=== PATIENT | male | born 1990 | race African-American/Black ===

== ENCOUNTER 2016-09-03 17:52 | Inpatient (IN) ==
[2016-09-03] MEDS ORDERED: VANCOMYCIN INJ 1,000 MG in SODIUM CHLORIDE 0.9% 250 ML IV STA (18:11)
[2016-09-03] MEDS ORDERED: PIPERACILLIN/TAZOBACTAM 3,375 MG in SODIUM CHLORIDE 0.9% 100 ML IV STA (18:11)
[2016-09-03] MEDS ORDERED: SODIUM CHLORIDE 0.9% 2,000 ML IV STA (18:11)
[2016-09-03] MEDS ORDERED: methylPREDNISolone SOD SUC 125 MG/2 ML VIAL IV STA (18:11)
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
[2016-09-03 18:22] LABS: Basophils % 0.1 % (0.0-0.8); Eosinophils # 0.1 10*3/uL (0.0-0.87); Eosinophils % 0.4 % (0.00-10.9); Hematocrit 27.5 VOL% (42.0-52.0); Hemoglobin 9.2 GM/DL (14.0-18.0); Immature Granulocytes % 1.5 %; Immature Granulocytes Absolute 0.44 #; Lymphocytes # 2.1 10*3/uL (1.4-4.0); Lymphocytes % 7.4 % (21.2-54.2); Mean Corpuscular HGB Conc 33.5 GM/DL (32-36); Mean Corpuscular Hemoglobin 27 PG (27-34); Mean Corpuscular Volume 80.2 FL (87-102); Mean Platelet Volume 9.7 FL (9.6-12.0); Neutrophils % 83.6 % (38.7-73.9); Platelet Count 774 T/CUMM (130-400); Red Blood Count 3.43 MC/CUMM (3.8-5.5); White Blood Count 28.7 T/CUMM (4-12)
[2016-09-03 18:40] LABS: Alanine Aminotransferase 14 U/L (16-61); Albumin 2.3 G/DL (3.4-5.0); Alkaline Phosphatase 114 U/L (45-117); Aspartate Amino Transferase 26 U/L (0-37); Blood Urea Nitrogen 11 MG/DL (7-18); Calcium 8.4 MG/DL (8.5-10.1); Glucose 113 MG/DL (74-106); Osmolality,Calculated 272.8 MOS/KG (273-304); Potassium 4.3 MMOL/L (3.5-5.1); Sodium 137 MMOL/L (136-145); Total Protein 7.4 G/DL (6.4-8.3); Troponin I Only < 0.015 NG/ML (0.00-0.045)
--- NOTE | 2016-09-03 19:03 | XRay Report ---
XR chest 1V portable Indication: Shortness of breath. Chest one view: Comparison 05/07/2011. The heart size and mediastinal contour are normal. The lungs and pleural spaces are clear. Bones are unremarkable. Impression: Negative chest. PROCEDURE INTERPRETED AT [facility] DEPARTMENT OF RADIOLOGY Final Report Signed by: Tomy Jovel M.D.
[2016-09-03] MEDS ORDERED: methylPREDNISolone SOD SUC 125 MG/2 ML VIAL ONE (19:17)
[2016-09-03] MEDS ORDERED: VANCOMYCIN 1,000 MG VIAL ONE (19:17)
[2016-09-03] MEDS ORDERED: PIPERACILLIN/TAZOBACTAM 3,375 MG VIAL IV ONE (19:17)
[2016-09-03] MEDS ORDERED: SODIUM CHLORIDE 0.9% 100 ML IV ONE (19:18)
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
[2016-09-03 19:51] LABS: Eosinophils 1 % (0-10); Lymphocytes 6 % (20-55); Platelet Estimate Increased; Segmented Neutrophils 84 % (50-85); Total Cells Counted 100
[2016-09-03] MEDS ORDERED: ONDANSETRON 4 MG/2 ML VIAL IV PRN (19:53)
[2016-09-03] MEDS ORDERED: POLYETHYLENE GLYCOL POWDER 17 GM PACK PO PRN (20:03)
[2016-09-03] MEDS ORDERED: ACETAMINOPHEN 500 MG TABLET PO PRN (21:38)
[2016-09-03] MEDS: PREGABALIN 50 MG CAPSULE PO SCH (21:52)
[2016-09-03] MEDS: BACLOFEN 10 MG TABLET PO SCH (21:52)
[2016-09-03] MEDS: ALPRAZolam 0.5 MG TABLET PO PRN (21:52)
[2016-09-03] MEDS: ZALEPLON 5 MG CAPSULE PO SCH (21:52)
[2016-09-03] MEDS: SODIUM CHLORIDE 0.9% 1,000 ML IV SCH (22:12)
[2016-09-04] MEDS: VANCOMYCIN INJ 750 MG in SODIUM CHLORIDE 0.9% 250 ML IV SCH ×2 (03:59→11:44)
[2016-09-04] MEDS: SODIUM CHLORIDE 0.9% 1,000 ML IV SCH ×2 (03:59→20:54)
[2016-09-04 05:51] LABS: Red Blood Count 3.22 MC/CUMM (3.8-5.5); White Blood Count 30.2 T/CUMM (4-12)
[2016-09-04 05:52] LABS: Basophils # 0.1 10*3/uL (0.0-0.2); Basophils % 0.2 % (0.0-0.8); Hematocrit 25.1 VOL% (42.0-52.0); Hemoglobin 8.7 GM/DL (14.0-18.0); Immature Granulocytes % 1.2 %; Immature Granulocytes Absolute 0.37 #; Lymphocytes # 1.1 10*3/uL (1.4-4.0); Lymphocytes % 3.8 % (21.2-54.2); Mean Corpuscular HGB Conc 34.7 GM/DL (32-36); Mean Corpuscular Hemoglobin 27 PG (27-34); Monocytes # 0.6 10*3/uL (0.11-0.8); Monocytes % 1.8 % (1.7-12.7); NRBC # 0.03 10*3/uL; Neutrophils # 28.1 10*3/uL (1.4-7.4); Platelet Count 684 T/CUMM (130-400)
[2016-09-04 06:08] LABS: Calcium 8.1 MG/DL (8.5-10.1); Osmolality,Calculated 285.1 MOS/KG (273-304); Potassium 4.1 MMOL/L (3.5-5.1)
[2016-09-04 06:36] LABS: Band Neutrophils 6 % (0-10); Hypochromasia 1+; Lymphocytes 3 % (20-55); Microcytosis 1+; Platelet Estimate Increased; Segmented Neutrophils 87 % (50-85); Total Cells Counted 100
[2016-09-04] MEDS: PIPERACILLIN/TAZOBACTAM 3,375 MG in SODIUM CHLORIDE 0.9% 100 ML IV SCH ×4 (06:47→23:03)
[2016-09-04] MEDS ORDERED: INFLUENZA VIRUS VACCINE 0.5 ML SYRINGE IM ONE (09:00)
[2016-09-04] MEDS: PANTOPRAZOLE 40 MG TABLET PO SCH (10:39)
[2016-09-04] MEDS: PREGABALIN 50 MG CAPSULE PO SCH ×3 (10:39→20:53)
[2016-09-04] MEDS: CITALOPRAM 20 MG TABLET PO SCH (10:39)
[2016-09-04] MEDS: ALPRAZolam 0.5 MG TABLET PO PRN ×2 (10:40→20:58)
--- NOTE | 2016-09-04 10:49 | Hospitalist Progress Note ---
Assessment and Plan (1) Sepsis Status: Acute Current Visit: Yes (2) Leukocytosis Status: Acute Current Visit: Yes (3) sacral decubitus wound Status: Acute Current Visit: Yes (4) Infected wound Status: Acute Assessment and plan: Plan for our patient #1 admit the patient service #2 IV antibiotics vanc and Zosyn #3 surgery consult number for home meds appropriate 09/04/16 can continue with IV antibiotics and wound care for this patient. It seems like the abx have Agreed well with the patient and his vital signs are improved. He's no longer diaphoretic he's no longer tachycardic. Awaiting surgery's input as far as his sacral decubitus ulcer. Current Visit: Yes Hospitalist: Subjective Interval history: Patient reports feeling much better. His vital signs have improved. He's no longer tachycardic and diaphoretic Exam - Constitutional Vitals: Period Temp Pulse Resp BP Sys/Johnson Pulse Ox Last 24 Hr 97.4 F-98.2 F 90-112 16-20 90-125/48-72 98-100 General appearance: under weight - Head Head exam: Present: normal inspection - Eye Eye exam: Present: EOMI Pupils: Present: ELINA - ENT ENT exam: Present: normal exam - Neck Neck exam: Present: normal inspection - Respiratory Respiratory exam: Present: clear to auscultation bilaterally - Cardiovascular Cardiovascular exam: Present: tachycardia - GI/Abdominal GI/Abdominal exam: Present: normal bowel sounds - Extremities Exam Extremities exam: Present: normal inspection - Back Exam Back exam: Present: other (a midline 8 cm diameter decubitus with purulent odorous discharge.) - Neurological Exam Neurological exam: Present: alert - Psychiatric Psychiatric exam: Present: normal affect - Skin Skin exam: Present: other ( Right posterior thigh 3 cm decubiti 2,) Results - Labs CBC & BMP: 09/04/16 05:36 09/04/16 05:36
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
[2016-09-04] MEDS ORDERED: SKIN HEALING OINT (AQUAPHOR) 50 GM TUBE TOP PRN (13:00)
[2016-09-04] MEDS: COLLAGENASE OINT 30 GM TUBE TOP SCH (13:00)
[2016-09-04] MEDS: ENOXAPARIN 40 MG/0.4 ML SYRINGE SUBCUT SCH (20:53)
[2016-09-04] MEDS: BACLOFEN 10 MG TABLET PO SCH (20:53)
[2016-09-04] MEDS: ZALEPLON 5 MG CAPSULE PO SCH (20:53)
[2016-09-05] MEDS: VANCOMYCIN INJ 1,000 MG in SODIUM CHLORIDE 0.9% 250 ML IV SCH ×3 (01:31→17:40)
[2016-09-05] MEDS: SODIUM CHLORIDE 0.9% 1,000 ML IV SCH ×2 (03:18→11:24)
[2016-09-05] MEDS: PIPERACILLIN/TAZOBACTAM 3,375 MG in SODIUM CHLORIDE 0.9% 100 ML IV SCH ×3 (05:19→23:19)
[2016-09-05] MEDS: PREGABALIN 50 MG CAPSULE PO SCH ×3 (08:35→21:10)
[2016-09-05] MEDS: ALPRAZolam 0.5 MG TABLET PO PRN ×3 (08:35→21:21)
[2016-09-05] MEDS: CITALOPRAM 20 MG TABLET PO SCH (08:35)
[2016-09-05] MEDS: PANTOPRAZOLE 40 MG TABLET PO SCH (08:35)
[2016-09-05] MEDS: COLLAGENASE OINT 30 GM TUBE TOP SCH (08:36)
[2016-09-05] MEDS ORDERED: LORazepam 2 MG/1 ML VIAL ONE (09:44)
[2016-09-05] MEDS: LORazepam 2 MG/1 ML VIAL IV PRN (10:05)
--- NOTE | 2016-09-05 11:03 | Hospitalist Progress Note ---
Assessment and Plan (1) Sepsis Status: Acute Current Visit: Yes (2) sacral decubitus wound Status: Acute Current Visit: Yes (3) Acute UTI Status: Acute Current Visit: Yes (4) Medical non-compliance Status: Acute Current Visit: Yes (5) Quadriplegia following spinal cord injury Status: Acute Current Visit: Yes (6) Leukocytosis Status: Acute Assessment and plan: Plan: 09/05: Patient is now agreeable to obtaining CBC, BMP, UA and culture. I believe he discussion with the patient and family at bedside, and recommended that he stay for IV antibiotics until we have completed infectious workup. He continues to state that he wishes to leave today, if he does so this will be AGAINST MEDICAL ADVICE. Current Visit: Yes Hospitalist: Subjective Interval history: Patient is wishing to leave the hospital AMA. I had a lengthy discussion with him regarding and laid for antibiotics and infectious workup including labs and UA and culture. He is agreeable to this however he still wants to leave today. I recommended again repeatedly that he stay for IV antibiotics until her infectious workup is complete given his significantly elevated white count. He seems to have very poor insight into his illness. Exam - Constitutional Vitals: Period Temp Pulse Resp BP Sys/Johnson Pulse Ox Last 24 Hr 96.8 F-98.3 F 77-100 16-18 104-139/65-81 100-100 Exam: EXAM: CONSTITUTIONAL: non toxic, NAD HEENT: Bitemporal wasting, AT, OP benign, ELINA, EOMI CV: RRR no m/g/r RESP: clear B/L, no w/r/r GI: abd soft, NT, ND, +bowel sounds INTEGUMENTARY: Sacral decubitus ulcer present EXTREMITIES: Diffuse muscle atrophy NEURO: Consistent with known quadriplegia PSYCH: Awake and alert Results - Labs CBC & BMP: 09/04/16 05:36 09/04/16 05:36 Lab Results: I have reviewed the past 24 hour labs (initially refused a.m. labs , now agreeable and obtaining CBC, BMP and UA with culture)
[2016-09-05 11:15] LABS: Apearance,Urine CLOUDY (Clear); Bilirubin,Urine Negative (Negative); Blood, Urine Negative (Negative); Calcium Oxalate Crystals,Urine Occasional /HPF (Few); Glucose,Urine (UA) Negative (Negative); Ketones,Urine Negative (Negative); Mucus,Urine Occasional /LPF (Occasional); Nitrite,Urine Negative (Negative); Protein,Urine Negative; RBC,Urine 5 /HPF (0-4); Urine Color Amber (Yellow); Urine Specific Gravity 1.028 (1.001-1.035); WBC,Urine 211 /HPF (0-6)
--- NOTE | 2016-09-05 11:18 | General Surgery Progress Note ---
Assessment and Plan (1) sacral decubitus wound Status: Acute Assessment and plan: With the nurses felt we rolled the patient and I carefully looked at each of these areas of breakdown and I am not impressed that the decubiti look bad enough to result in a white count of 30,000. This appears somewhat chronic over the sacral area and I did not feel that this was necrotic. I will continue to follow this with you but at this time I do not see evidence of an abscess or necrotizing infection. 09/05: He does not appear ill and is afebrile. He had a markedly elevated white blood cell count yesterday. In looking at his chronic-appearing sacral ulcer I think that it is unlikely to be the source of his elevated white count and it does not really look actively infected. I can debride this wound but I am surprised if there is any direct septic focus related to this ulcer. Feeling the sacral wound will be another very difficult matter. This patient may require fecal diversion to have any hope of healing this wound which she is frequently contaminating on a daily basis his bowel movements. He had cultures that are positive from the wound which I would expect in a chronic wound that is being continually contaminated. If we do not find another source for his elevated white blood cell count then I would be happy to take him to the OR for exploration and debridement of these pressure sores. Current Visit: Yes Subjective Patient reports: Present: no new complaints, feels better, tolerating a regular diet. Absent: nausea, vomiting, shortness of breath, fever Exam - Constitutional Vitals: Period Temp Pulse Resp BP Sys/Johnson Pulse Ox Last 24 Hr 96.8 F-98.3 F 77-100 16-18 104-139/65-81 100-100 General appearance: no acute distress - Respiratory Respiratory exam: Absent: accessory muscle use - Back Exam Back exam: Present: other (I looked at his sacral ulcer again and it appears chronic with a fully granulated base and granulation tissue over the tip of the coccyx. I do not see any obvious section or necrosis) Results - Labs CBC & BMP: 09/04/16 05:36 09/04/16 05:36 Lab Results: I have reviewed the past 24 hour labs
[2016-09-05 11:52] LABS: Basophils % 0.1 % (0.0-0.8); Eosinophils # 0.1 10*3/uL (0.0-0.87); Eosinophils % 0.4 % (0.00-10.9); Hematocrit 23.2 VOL% (42.0-52.0); Hemoglobin 7.7 GM/DL (14.0-18.0); Immature Granulocytes % 1.1 %; Immature Granulocytes Absolute 0.24 #; Lymphocytes % 9.2 % (21.2-54.2); Mean Corpuscular HGB Conc 33.2 GM/DL (32-36); Mean Corpuscular Hemoglobin 27 PG (27-34); Mean Corpuscular Volume 79.7 FL (87-102); Mean Platelet Volume 9.7 FL (9.6-12.0); Monocytes # 1.7 10*3/uL (0.11-0.8); Neutrophils # 17.5 10*3/uL (1.4-7.4); Neutrophils % 81.2 % (38.7-73.9); Platelet Count 739 T/CUMM (130-400); Red Blood Count 2.91 MC/CUMM (3.8-5.5); Red Cell Distribution Width 14.2 % (9.3-17.3); White Blood Count 21.5 T/CUMM (4-12)
[2016-09-05 12:19] LABS: Hypochromasia 1+; Microcytosis 1+; Ovalocytes Slight; Platelet Estimate Increased
[2016-09-05] MEDS ORDERED: SODIUM CHLORIDE 0.9% 250 ML IV PRN (12:23)
[2016-09-05 12:25] LABS: Calcium 7.9 MG/DL (8.5-10.1); Osmolality,Calculated 287.6 MOS/KG (273-304); Potassium 3.8 MMOL/L (3.5-5.1)
[2016-09-05] MEDS: ZALEPLON 5 MG CAPSULE PO SCH (21:11)
[2016-09-05] MEDS: BACLOFEN 10 MG TABLET PO SCH (21:11)
[2016-09-05] MEDS: ENOXAPARIN 40 MG/0.4 ML SYRINGE SUBCUT SCH (21:11)
[2016-09-06] MEDS: VANCOMYCIN INJ 1,000 MG in SODIUM CHLORIDE 0.9% 250 ML IV SCH ×3 (03:30→16:38)
[2016-09-06 06:57] LABS: Basophils # 0.1 10*3/uL (0.0-0.2); Basophils % 0.2 % (0.0-0.8); Eosinophils % 0.1 % (0.00-10.9); Hematocrit 34.4 VOL% (42.0-52.0); Hemoglobin 11.8 GM/DL (14.0-18.0); Immature Granulocytes % 2.7 %; Immature Granulocytes Absolute 0.91 #; Lymphocytes # 2.4 10*3/uL (1.4-4.0); Lymphocytes % 7.1 % (21.2-54.2); Mean Corpuscular HGB Conc 34.3 GM/DL (32-36); Mean Corpuscular Hemoglobin 27 PG (27-34); Mean Platelet Volume 10.3 FL (9.6-12.0); Monocytes # 2.2 10*3/uL (0.11-0.8); Monocytes % 6.4 % (1.7-12.7); NRBC # 0.08 10*3/uL; Neutrophils # 28.6 10*3/uL (1.4-7.4); Neutrophils % 83.5 % (38.7-73.9); Platelet Count 439 T/CUMM (130-400); Red Cell Distribution Width 14.6 % (9.3-17.3); White Blood Count 34.2 T/CUMM (4-12)
[2016-09-06] MEDS: PIPERACILLIN/TAZOBACTAM 3,375 MG in SODIUM CHLORIDE 0.9% 100 ML IV SCH ×3 (07:00→22:01)
[2016-09-06 07:01] LABS: Calcium 8.2 MG/DL (8.5-10.1); Magnesium 1.9 MG/DL (1.8-2.4); Osmolality,Calculated 283.8 MOS/KG (273-304); Potassium 3.2 MMOL/L (3.5-5.1)
[2016-09-06 07:10] LABS: Band Neutrophils 1 % (0-10); Hypochromasia 1+; Lymphocytes 6 % (20-55); Microcytosis 1+; Platelet Estimate Adequate; Segmented Neutrophils 90 % (50-85); Total Cells Counted 100
[2016-09-06] MEDS: PANTOPRAZOLE 40 MG TABLET PO SCH (10:19)
[2016-09-06] MEDS: CITALOPRAM 20 MG TABLET PO SCH (10:19)
[2016-09-06] MEDS: SODIUM CHLORIDE 0.9% 1,000 ML IV SCH ×3 (10:19→16:39)
[2016-09-06] MEDS: PREGABALIN 50 MG CAPSULE PO SCH ×3 (10:19→21:59)
--- NOTE | 2016-09-06 10:48 | General Surgery Progress Note ---
Assessment and Plan (1) sacral decubitus wound Status: Acute Assessment and plan: With the nurses felt we rolled the patient and I carefully looked at each of these areas of breakdown and I am not impressed that the decubiti look bad enough to result in a white count of 30,000. This appears somewhat chronic over the sacral area and I did not feel that this was necrotic. I will continue to follow this with you but at this time I do not see evidence of an abscess or necrotizing infection. 09/05: He does not appear ill and is afebrile. He had a markedly elevated white blood cell count yesterday. In looking at his chronic-appearing sacral ulcer I think that it is unlikely to be the source of his elevated white count and it does not really look actively infected. I can debride this wound but I am surprised if there is any direct septic focus related to this ulcer. Feeling the sacral wound will be another very difficult matter. This patient may require fecal diversion to have any hope of healing this wound which she is frequently contaminating on a daily basis his bowel movements. He had cultures that are positive from the wound which I would expect in a chronic wound that is being continually contaminated. If we do not find another source for his elevated white blood cell count then I would be happy to take him to the OR for exploration and debridement of these pressure sores. 09/06: He continues to have high fevers and a markedly elevated white blood cell count. His sacral decubitus ulcer has only chronic appearance and no evidence of acute infection on exam. I could not guarantee that there is not an underlying deep problem however his urinalysis is coming back consistent with urinary tract infection and I think his fever and white cell count or most likely from his urine. Considering how high these are I have recommended that we get a CT scan of his abdomen and pelvis. The patient is refusing all treatment. I have recommended aggressive treatment of his sacral ulcer and also I think that he would probably benefit from fecal diversion. All of this was discussed in detail with he and his family. I think his family understands the serious nature of his infection however the patient is demanding that we bring him papers for him to be released to go home. I did explain to him that it is not uncommon for paraplegic patients to from infection such as this Current Visit: Yes Subjective Patient reports: Present: feels better, fever. Absent: nausea, vomiting, shortness of breath Exam - Constitutional Vitals: Period Temp Pulse Resp BP Sys/Johnson Pulse Ox Last 24 Hr 97.6 F-102.2 F 87-109 18-20 86-138/41-66 98-100 General appearance: no acute distress - Eye Eye exam: Absent: scleral icterus - Neck Neck exam: Present: trachea midline - Respiratory Respiratory exam: Absent: accessory muscle use - GI/Abdominal GI/Abdominal exam: Present: soft. Absent: distended Results - Labs CBC & BMP: 09/06/16 06:37 09/06/16 06:37 Lab Results: I have reviewed the past 24 hour labs
--- NOTE | 2016-09-06 11:44 | Hospitalist Progress Note ---
Assessment and Plan (1) Sepsis Status: Acute Current Visit: Yes (2) sacral decubitus wound Status: Acute Current Visit: Yes (3) Acute UTI Status: Acute Current Visit: Yes (4) Medical non-compliance Status: Acute Current Visit: Yes (5) Quadriplegia following spinal cord injury Status: Acute Current Visit: Yes (6) Leukocytosis Status: Acute Assessment and plan: Plan: 09/05: Patient is now agreeable to obtaining CBC, BMP, UA and culture. I believe he discussion with the patient and family at bedside, and recommended that he stay for IV antibiotics until we have completed infectious workup. He continues to state that he wishes to leave today, if he does so this will be AGAINST MEDICAL ADVICE. 09/06: Described broad-spectrum antibiotics the patient continues to have high fever, high white count and is now hypotensive and diaphoretic. My lengthy discussion with him has been to no avail thus far, in that he still wishes to leave AMA despite knowing that he has a high chance of from doing so. He is refusing all treatment recommendations at this point, refusing further lab draws, and imaging. He is unfortunately being uncooperative with profanity laced speech towards the nursing staff. I will attempt to discuss how ill he is if his ride does arrive. Current Visit: Yes Hospitalist: Subjective Interval history: Mr. Landon continues to spike fevers and is now hypotensive and diaphoretic. I had a lengthy discussion with him encouraging to comply with blood cultures antibiotics, obtaining the CT scan as Dr. Zhou recommended, and letting us continue are infectious workup and treatment. He is alert and oriented and has given us a profanity laced explanation of why he wants to go home. He understands that he is leaving AMA if he does so. He states he has a ride home , I would like to explain to whomever plans on taking him home how ill this patient is that he will likely . Despite telling the patient that he will likely if he leaves AMA, he states that he does not care, and he just wants to go home, "if it's my time then it's my time." Current blood pressure is 85/ 50 Exam - Constitutional Vitals: Period Temp Pulse Resp BP Sys/Johnson Pulse Ox Last 24 Hr 97.4 F-102.2 F 87-109 18-20 86-138/41-66 94-100 Exam: EXAM: CONSTITUTIONAL: Chronically ill-appearing, NAD, diaphoretic HEENT: Bitemporal wasting, AT, OP benign, ELINA, EOMI CV: RRR no m/g/r RESP: clear B/L, no w/r/r GI: abd soft, NT, ND, +bowel sounds INTEGUMENTARY: Sacral decubitus ulcer present EXTREMITIES: Diffuse muscle atrophy NEURO: Consistent with known quadriplegia PSYCH: Awake and alert, oriented 3, uncooperative with exam Results - Labs CBC & BMP: 09/06/16 06:37 09/06/16 06:37 Lab Results: I have reviewed the past 24 hour labs - Diagnostic Findings Procedure: CT Abdomen and Pelvis: pending
[2016-09-06] MEDS: COLLAGENASE OINT 30 GM TUBE TOP SCH (12:55)
[2016-09-06] MEDS: ENOXAPARIN 40 MG/0.4 ML SYRINGE SUBCUT SCH (22:00)
[2016-09-06] MEDS: ZALEPLON 5 MG CAPSULE PO SCH (22:00)
[2016-09-06] MEDS: BACLOFEN 10 MG TABLET PO SCH (22:00)
[2016-09-06] MEDS: ALPRAZolam 0.5 MG TABLET PO PRN (22:07)
[2016-09-07] MEDS: VANCOMYCIN INJ 1,000 MG in SODIUM CHLORIDE 0.9% 250 ML IV SCH ×2 (01:53→16:22)
[2016-09-07] MEDS: LORazepam 2 MG/1 ML VIAL IV PRN (01:53)
[2016-09-07 05:22] LABS: HIV Antigen/Antibody Result Nonreactive (Nonreactive)
[2016-09-07] MEDS: PIPERACILLIN/TAZOBACTAM 3,375 MG in SODIUM CHLORIDE 0.9% 100 ML IV SCH (07:02)
[2016-09-07] MEDS: SODIUM CHLORIDE 0.9% 1,000 ML IV SCH ×3 (07:03→23:35)
[2016-09-07] MEDS: DOCUSATE SODIUM 100 MG CAPSULE PO PRN (09:33)
[2016-09-07] MEDS: ALPRAZolam 0.5 MG TABLET PO PRN ×2 (09:33→21:22)
[2016-09-07] MEDS: PREGABALIN 50 MG CAPSULE PO SCH ×4 (09:34→21:22)
[2016-09-07] MEDS: PANTOPRAZOLE 40 MG TABLET PO SCH (09:34)
[2016-09-07] MEDS: CITALOPRAM 20 MG TABLET PO SCH (10:32)
--- NOTE | 2016-09-07 11:10 | CT Report ---
History: Sacral decubitus ulcer Date: 09/07/2016 Study: CT abdomen and pelvis with IV contrast Comparison exam: May 07, 2011 CT abdomen and pelvis Technique: Spiral CT sections were obtained from the lung bases to the pubic symphysis following 100 mL Omnipaque 350 IV. Total DLP measures 443.9 mGy*cm. CT abdomen: There is some mild dependent atelectasis in the partially visualized lung bases. There is no evidence of pneumoperitoneum. The liver, bile ducts, fluid-filled gallbladder, spleen, pancreas, and adrenal glands are unremarkable. The kidneys are normal aside from a 13 mm water density simple cyst at the upper pole of the right kidney. There is bilateral renal excretion without hydronephrosis. There is no aortic aneurysm. There is mild free fluid in the right paracolic gutter. There is no gross lymphadenopathy by short axis diameter criteria. CT pelvis: There is a septated fluid collection with rim enhancement compatible with a large soft tissue abscess associated with the right gluteus richard and medius muscle, measuring up to 16 x 10 x 6 cm maximum dimensions. There is also extension of this fluid collection into the partially visualized thigh and adductor muscles as well. There is soft tissue ulceration in the dorsal pelvis region inferior to the level of the coccyx. There is no soft tissue mass of the pelvis. There are some sclerotic changes of the bony framework of the hips. Does the patient have a history of renal disease? Impression: Large intramuscular abscess lateral to the right hip, measuring up to 16 cm maximum diameter. Soft tissue ulceration at the dorsal midline pelvis inferior to the coccyx. Mild free fluid in the right paracolic gutter PROCEDURE INTERPRETED AT [facility] DEPARTMENT OF RADIOLOGY Final Report Signed by: Dr. Michelle Gay
--- NOTE | 2016-09-07 11:41 | Hospitalist Progress Note ---
Assessment and Plan (1) Sepsis Status: Acute Current Visit: Yes (2) sacral decubitus wound Status: Acute Current Visit: Yes (3) Muscle abscess Status: Acute Current Visit: Yes (4) Acute UTI Status: Acute Current Visit: Yes (5) Medical non-compliance Status: Acute Current Visit: Yes (6) Quadriplegia following spinal cord injury Status: Acute Current Visit: Yes (7) Leukocytosis Status: Acute Assessment and plan: Plan: 09/05: Patient is now agreeable to obtaining CBC, BMP, UA and culture. I believe he discussion with the patient and family at bedside, and recommended that he stay for IV antibiotics until we have completed infectious workup. He continues to state that he wishes to leave today, if he does so this will be AGAINST MEDICAL ADVICE. 09/06: Described broad-spectrum antibiotics the patient continues to have high fever, high white count and is now hypotensive and diaphoretic. My lengthy discussion with him has been to no avail thus far, in that he still wishes to leave AMA despite knowing that he has a high chance of from doing so. He is refusing all treatment recommendations at this point, refusing further lab draws, and imaging. He is unfortunately being uncooperative with profanity laced speech towards the nursing staff. I will attempt to discuss how ill he is if his ride does arrive. 09/07: Patient is now much more cooperative. CT scan shows an intramuscular abscess which is probably the source of his ongoing fever and white count. He is now on is to draw labs again and "take care of the abscess." Past along with the surgical team to decide how best to approach the abscess. Otherwise continue antibiotics for now. We'll repeat blood work in the morning. Current Visit: Yes Hospitalist: Subjective Interval history: Mr. Landon is still having fever. His mood has changed dramatically in that he is much more cooperative. A CT scan of the abdomen and pelvis showed a large intramuscular abscess about the right hip. He states he is willing to "let us get rid of the abscess." He states he is also amenable to letting us draw labs again. We'll pass this and follow along to the surgical team to decide how best to approach the abscess. Exam - Constitutional Vitals: Period Temp Pulse Resp BP Sys/Johnson Pulse Ox Last 24 Hr 97.7 F-100.7 F 69-108 18-22 74-118/36-67 94-100 Exam: EXAM: CONSTITUTIONAL: Chronically ill-appearing, NAD HEENT: Bitemporal wasting, AT, OP benign, ELINA, EOMI CV: RRR no m/g/r RESP: clear B/L, no w/r/r GI: abd soft, NT, ND, +bowel sounds INTEGUMENTARY: Sacral decubitus ulcer present EXTREMITIES: Indurated area along the musculature about the right hip with mild erythema NEURO: Consistent with known quadriplegia PSYCH: Awake and alert, oriented 3, cooperative today Results - Labs CBC & BMP: 09/06/16 06:37 09/06/16 06:37 Lab Results: I have reviewed the past 24 hour labs - Diagnostic Findings Procedure: CT Abdomen and Pelvis: image reviewed by me, report reviewed by me
[2016-09-07] MEDS: COLLAGENASE OINT 30 GM TUBE TOP SCH (13:40)
[2016-09-07] MEDS: ERTAPENEM 1,000 MG in SODIUM CHLORIDE 0.9% 100 ML IV SCH (13:45)
--- NOTE | 2016-09-07 15:53 | Event Note ---
The patient feels better and is had low-grade temperature. His CT scan shows a large fluid collection in his right hip. I have discussed evacuation of this in the operating room. The procedure and risk of been explained and he wishes to proceed.
[2016-09-07] MEDS ORDERED: BUPIVACAINE MPF 0.25% /EPI 30 ML VIAL ONE (16:18)
[2016-09-07] MEDS ORDERED: LIDOCAINE 1%/EPI INJ 20 ML VIAL ONE (16:19)
--- NOTE | 2016-09-07 17:18 | Operative Note ---
Date of procedure: 09/07/16 Pre-op diagnosis: large complex intramuscular abscess right hip and thigh Post-op diagnosis: same Procedure: Incision and drainage of large intramuscular abscess right hip and thigh Findings and technique: After informed consent was obtained the patient was brought the operating room and placed in a lateral position and his right hip buttocks and sacral area prepped and draped in usual sterile fashion inspection of the sacral ulcer revealed all viable appearing tissue with no evidence of infection in this location. There is an area of fluctuance over the right greater trochanter and a 3 cm incision was made in the suction cannula inserted and about 500 mL of purulent material was evacuated and cultured. The cavity was digitally explored to break up any loculations and tract down into the lateral 5 and along the greater trochanter and along the femur this also tracked anteriorly beneath the fascia as well and all loculations were broken up in this area was copiously irrigated and a 10 mm SUNITHA drain placed in the space and brought through separate stab incision distally incision was enclosed interrupted 2-0 nylon suture and the drain sutured to the skin the cavity was about 15 cm in size Anesthesia: MAC Surgeon / Physician: Narciso Zhou III. Estimated blood loss: minimal Specimens: other (cultures) Condition: stable Disposition: PACU Results - Labs CBC & BMP: 09/06/16 06:37 09/06/16 06:37 Discharge Plan - Discharge Medications No Action Citalopram [CeleXA] 20 mg PO DAILY Amoxicillin/Potassium Clav [Amox Tr-K Clv 875-125 mg Tab] 1 each PO BID Polyethylene Glycol Powder [Miralax] 17 gm PO DAILY PRN PRN Reason: Constipation Ampicillin Cap 500 mg PO QID Pregabalin [Lyrica] 50 mg PO TID Zolpidem Tartrate [Zolpidem Tartrate] 10 mg PO BEDTIME Baclofen [Baclofen] 10 mg PO BEDTIME Docusate Sodium 100 mg PO DAILY PRN PRN Reason: stool softener ALPRAZolam [Alprazolam] 2 mg PO BID PRN PRN Reason: Anxiety - Follow Up or Referral - Forms/Instructions
[2016-09-07] MEDS ORDERED: PROPOFOL 200 MG/20 ML VIAL IV ONE (17:30)
[2016-09-07] MEDS ORDERED: MIDAZOLAM 2 MG/2 ML VIAL ONE (17:31)
[2016-09-07] MEDS ORDERED: fentaNYL 100 MCG/2 ML VIAL ONE (17:31)
[2016-09-07] MEDS: BACLOFEN 10 MG TABLET PO SCH (21:22)
[2016-09-07] MEDS: ZALEPLON 5 MG CAPSULE PO SCH (21:22)
[2016-09-07] MEDS: ENOXAPARIN 40 MG/0.4 ML SYRINGE SUBCUT SCH (21:25)
[2016-09-08] MEDS: LORazepam 2 MG/1 ML VIAL IV PRN ×2 (01:56→22:32)
[2016-09-08 06:54] LABS: Basophils % 0.2 % (0.0-0.8); Eosinophils # 0.4 10*3/uL (0.0-0.87); Hematocrit 31.3 VOL% (42.0-52.0); Hemoglobin 10.2 GM/DL (14.0-18.0); Immature Granulocytes Absolute 0.17 #; Lymphocytes # 3.8 10*3/uL (1.4-4.0); Lymphocytes % 21.2 % (21.2-54.2); Mean Corpuscular HGB Conc 32.6 GM/DL (32-36); Mean Corpuscular Hemoglobin 27 PG (27-34); Mean Corpuscular Volume 81.9 FL (87-102); Mean Platelet Volume 9.9 FL (9.6-12.0); Monocytes # 1.3 10*3/uL (0.11-0.8); Monocytes % 7.2 % (1.7-12.7); Neutrophils # 12.1 10*3/uL (1.4-7.4); Neutrophils % 68.4 % (38.7-73.9); Platelet Count 570 T/CUMM (130-400); Red Blood Count 3.82 MC/CUMM (3.8-5.5); Red Cell Distribution Width 15.1 % (9.3-17.3); White Blood Count 17.7 T/CUMM (4-12)
[2016-09-08 07:04] LABS: INR 1.1
[2016-09-08 07:14] LABS: Calcium 7.9 MG/DL (8.5-10.1); Magnesium 2.2 MG/DL (1.8-2.4); Osmolality,Calculated 287.4 MOS/KG (273-304); Potassium 3.6 MMOL/L (3.5-5.1)
[2016-09-08] MEDS: ALPRAZolam 0.5 MG TABLET PO PRN ×2 (09:28→22:20)
[2016-09-08] MEDS: DOCUSATE SODIUM 100 MG CAPSULE PO PRN (09:29)
[2016-09-08] MEDS: PANTOPRAZOLE 40 MG TABLET PO SCH (09:29)
[2016-09-08] MEDS: CITALOPRAM 20 MG TABLET PO SCH (09:29)
[2016-09-08] MEDS: PREGABALIN 50 MG CAPSULE PO SCH ×3 (09:29→22:19)
[2016-09-08] MEDS: SODIUM CHLORIDE 0.9% 1,000 ML IV SCH ×3 (09:31→22:18)
[2016-09-08] MEDS: VANCOMYCIN INJ 1,000 MG in SODIUM CHLORIDE 0.9% 250 ML IV SCH ×3 (09:31→23:56)
--- NOTE | 2016-09-08 11:02 | Hospitalist Progress Note ---
Assessment and Plan - Time spent with patient Time spent with patient: Less than 30 minutes (due to assessment, plan and documentation) (1) Sepsis Status: Acute Assessment and plan: on zosyn Current Visit: Yes (2) Acute UTI Status: Acute Assessment and plan: on zosyn Current Visit: Yes (3) Infected wound Status: Acute Current Visit: Yes (4) Leukocytosis Status: Acute Current Visit: Yes (5) Medical non-compliance Status: Acute Current Visit: Yes (6) Muscle abscess Status: Acute Assessment and plan: s/p i/d with Dr. Winnie FENTON Current Visit: Yes (7) Quadriplegia following spinal cord injury Status: Acute Current Visit: Yes (8) sacral decubitus wound Status: Acute Current Visit: Yes Hospitalist: Subjective Interval history: Mr. Landon was seen this morning lying in bed. He is resting comfortably and breathing easy. He does not speak to me throughout exam. He was admitted with sepsis, sacral wound decubitus, muscle abscess, UTI, quadriplegia. He was taken to the OR on 09/07/[address] Winnie FENTON for incision and drainage of large intramuscular abscess to the right hip and thigh. He has a SUNITHA in place and has some bright red blood in his drain. We will continue to follow along with Surgery and monitor his progress. Labs in AM. Exam - Constitutional Vitals: Period Temp Pulse Resp BP Sys/Johnson Pulse Ox Last 24 Hr 97.5 F-99.7 F 71-105 16-20 77-138/40-91 96-100 General appearance: no acute distress, under weight - Head Head exam: Present: normal inspection, normocephalic - Eye Eye exam: Present: EOMI. Absent: scleral icterus Pupils: Present: ELINA, normal accommodation - ENT ENT exam: Present: normal exam, normal oropharynx - Neck Neck exam: Present: normal inspection. Absent: lymphadenopathy - Respiratory Respiratory exam: Present: clear to auscultation bilaterally. Absent: accessory muscle use - Cardiovascular Cardiovascular exam: Present: regular rate and rhythm - GI/Abdominal GI/Abdominal exam: Present: normal bowel sounds, soft. Absent: tenderness - Extremities Exam Extremities exam: Present: normal inspection, other (boots to bilat lower extremity for wound prevention.) - Back Exam Back exam: Present: normal inspection. Absent: muscle spasm - Neurological Exam Neurological exam: Present: other (will not speak) - Psychiatric Psychiatric exam: Present: flat affect - Skin Skin exam: Present: other (s/p i/d to right thigh/hip abscess.) Results - Labs CBC & BMP: 09/08/16 06:26 09/08/16 06:26 Lab Results: I have reviewed the past 24 hour labs
--- NOTE | 2016-09-08 11:15 | Event Note ---
He feels much better. He states that he can feel a big difference overall at how he feels and does not have pain. He is now afebrile. His white blood cell count is still elevated. I would anticipate us needing to keep the drain in this large space for a couple of weeks and also we need to continue IV antibiotics. I did culture the pus and we're awaiting culture results.
--- NOTE | 2016-09-08 13:38 | Anesthesia ---
Anesthesia Post OP - Post Ansesthetic Evaluation Patient seen in post op: Yes Resp: within normal limits CV: within normal limits Mental: within normal limits Temp: within normal limits [id number]: within normal limits Nausea and Vomiting: within normal limits Pain: within normal limits
[2016-09-08] MEDS: ERTAPENEM 1,000 MG in SODIUM CHLORIDE 0.9% 100 ML IV SCH (14:33)
[2016-09-08] MEDS: COLLAGENASE OINT 30 GM TUBE TOP SCH (16:44)
[2016-09-08] MEDS: ZALEPLON 5 MG CAPSULE PO SCH (22:19)
[2016-09-08] MEDS: ENOXAPARIN 40 MG/0.4 ML SYRINGE SUBCUT SCH (22:19)
[2016-09-08] MEDS: BACLOFEN 10 MG TABLET PO SCH (22:20)
[2016-09-09 06:51] LABS: Basophils % 0.4 % (0.0-0.8); Eosinophils # 0.4 10*3/uL (0.0-0.87); Eosinophils % 4.8 % (0.00-10.9); Hematocrit 29.1 VOL% (42.0-52.0); Hemoglobin 9.3 GM/DL (14.0-18.0); Immature Granulocytes % 1.1 %; Immature Granulocytes Absolute 0.09 #; Lymphocytes # 2.5 10*3/uL (1.4-4.0); Lymphocytes % 30.9 % (21.2-54.2); Mean Corpuscular Hemoglobin 27 PG (27-34); Mean Corpuscular Volume 83.9 FL (87-102); Mean Platelet Volume 9.6 FL (9.6-12.0); Monocytes # 0.6 10*3/uL (0.11-0.8); Monocytes % 7.2 % (1.7-12.7); Neutrophils # 4.4 10*3/uL (1.4-7.4); Neutrophils % 55.6 % (38.7-73.9); Platelet Count 570 T/CUMM (130-400); Red Blood Count 3.47 MC/CUMM (3.8-5.5); White Blood Count 7.9 T/CUMM (4-12)
[2016-09-09 07:19] LABS: Calcium 7.8 MG/DL (8.5-10.1); Magnesium 2.1 MG/DL (1.8-2.4); Osmolality,Calculated 287.4 MOS/KG (273-304); Potassium 3.5 MMOL/L (3.5-5.1)
[2016-09-09 07:32] LABS: Alanine Aminotransferase 10 U/L (16-61); Albumin 1.5 G/DL (3.4-5.0); Alkaline Phosphatase 61 U/L (45-117); Aspartate Amino Transferase 7 U/L (0-37); Bilirubin,Total < 0.39 MG/DL (0.2-1.0); Blood Urea Nitrogen 5 MG/DL (7-18); Calcium 7.5 MG/DL (8.5-10.1); Glucose 84 MG/DL (74-106); Osmolality,Calculated 289.3 MOS/KG (273-304); Potassium 3.6 MMOL/L (3.5-5.1); Sodium 148 MMOL/L (136-145); Total Protein 5.1 G/DL (6.4-8.3)
[2016-09-09] MEDS: SODIUM CHLORIDE 0.9% 1,000 ML IV SCH ×2 (07:50→12:19)
[2016-09-09] MEDS: VANCOMYCIN INJ 1,000 MG in SODIUM CHLORIDE 0.9% 250 ML IV SCH ×3 (07:50→23:33)
[2016-09-09] MEDS: PANTOPRAZOLE 40 MG TABLET PO SCH (10:14)
[2016-09-09] MEDS: CITALOPRAM 20 MG TABLET PO SCH (10:14)
[2016-09-09] MEDS: PREGABALIN 50 MG CAPSULE PO SCH ×3 (10:14→20:18)
[2016-09-09] MEDS: COLLAGENASE OINT 30 GM TUBE TOP SCH (10:28)
--- NOTE | 2016-09-09 11:30 | Hospitalist Progress Note ---
Assessment and Plan - Time spent with patient Time spent with patient: Less than 30 minutes (due to assessment, plan and documentation.) (1) Sepsis Status: Acute Assessment and plan: on zosyn Current Visit: Yes (2) Acute UTI Status: Acute Assessment and plan: on zosyn Current Visit: Yes (3) Infected wound Status: Acute Current Visit: Yes (4) Leukocytosis Status: Acute Current Visit: Yes (5) Medical non-compliance Status: Acute Current Visit: Yes (6) Muscle abscess Status: Acute Assessment and plan: s/p i/d with Dr. Winnie FENTON Current Visit: Yes (7) Quadriplegia following spinal cord injury Status: Acute Current Visit: Yes (8) sacral decubitus wound Status: Acute Current Visit: Yes Hospitalist: Subjective Interval history: Mr. Landon has was seen today lying in bed resting. His brother is at bedside. He seems to be in good spirits today. He states that he is feeling much better and is ready to go home. He is anxious to have his SUNITHA pulled. Denies any chest or abdominal pain. BP has been well controlled. We will continue on current plan of care at this time and follow along with Dr. Winnie FENTON. Exam - Constitutional Vitals: Period Temp Pulse Resp BP Sys/Johnson Pulse Ox Last 24 Hr 96.3 F-97.8 F 78-88 16-20 103-127/52-73 99-100 General appearance: no acute distress, cachectic - Head Head exam: Present: normal inspection, normocephalic - Eye Eye exam: Present: EOMI. Absent: scleral icterus Pupils: Present: ELINA, normal accommodation - ENT ENT exam: Present: normal exam, normal oropharynx - Neck Neck exam: Present: normal inspection. Absent: lymphadenopathy - Respiratory Respiratory exam: Present: clear to auscultation bilaterally. Absent: accessory muscle use - Cardiovascular Cardiovascular exam: Present: regular rate and rhythm - GI/Abdominal GI/Abdominal exam: Present: normal bowel sounds, soft. Absent: tenderness - Extremities Exam Extremities exam: Present: normal inspection. Absent: edema - Back Exam Back exam: Present: normal inspection. Absent: muscle spasm - Neurological Exam Neurological exam: Present: alert, oriented X3 - Psychiatric Psychiatric exam: Present: normal affect, normal mood - Skin Skin exam: Present: normal color, warm, dry, intact Results - Labs CBC & BMP: 09/09/16 06:21 09/09/16 06:21 Lab Results: I have reviewed the past 24 hour labs
[2016-09-09] MEDS: ERTAPENEM 1,000 MG in SODIUM CHLORIDE 0.9% 100 ML IV SCH (12:18)
--- NOTE | 2016-09-09 12:58 | Event Note ---
He feels much better. He is not having fever. His surgical sites are okay. We will continue with the drain and IV and up biotics for now. Cultures are pending.
[2016-09-09] MEDS: BACLOFEN 10 MG TABLET PO SCH (20:18)
[2016-09-09] MEDS: ENOXAPARIN 40 MG/0.4 ML SYRINGE SUBCUT SCH (20:19)
[2016-09-09] MEDS: ZALEPLON 5 MG CAPSULE PO SCH (20:19)
[2016-09-09] MEDS: LORazepam 2 MG/1 ML VIAL IV PRN (23:39)
[2016-09-10] MEDS: SODIUM CHLORIDE 0.9% 1,000 ML IV SCH (09:05)
[2016-09-10] MEDS: CITALOPRAM 20 MG TABLET PO SCH (09:06)
[2016-09-10] MEDS: PREGABALIN 50 MG CAPSULE PO SCH ×3 (09:06→20:19)
[2016-09-10] MEDS: PANTOPRAZOLE 40 MG TABLET PO SCH (09:06)
[2016-09-10] MEDS: VANCOMYCIN INJ 1,000 MG in SODIUM CHLORIDE 0.9% 250 ML IV SCH ×2 (09:06→15:50)
[2016-09-10] MEDS: COLLAGENASE OINT 30 GM TUBE TOP SCH (09:17)
--- NOTE | 2016-09-10 10:26 | Hospitalist Progress Note ---
<Jenni Ponce - Last Filed: 09/10/16 10:23> Assessment and Plan - Time spent with patient Time spent with patient: Less than 30 minutes (1) Sepsis Status: Acute Assessment and plan: on zosyn Current Visit: Yes (2) Acute UTI Status: Acute Assessment and plan: on zosyn Current Visit: Yes (3) Infected wound Status: Acute Current Visit: Yes (4) Leukocytosis Status: Acute Current Visit: Yes (5) Medical non-compliance Status: Acute Current Visit: Yes (6) Muscle abscess Status: Acute Assessment and plan: s/p i/d with Dr. Winnie FENTON Current Visit: Yes (7) Quadriplegia following spinal cord injury Status: Acute Current Visit: Yes (8) sacral decubitus wound Status: Acute Current Visit: Yes Hospitalist: Subjective Interval history: Mr. Landon was seen on rounds today lying in bed. He states that he is feeling well. He denies any pain, shortness of breath or abdominal pain. He is anxious to go home, but we will be here a couple more days for more abx and waiting on his cx's to return. Labs in AM. Exam - Constitutional Vitals: Period Temp Pulse Resp BP Sys/Johnson Pulse Ox Last 24 Hr 96.4 F-98.2 F 73-95 16-18 117-138/65-81 98-100 General appearance: normal weight, no acute distress - Head Head exam: Present: normal inspection, normocephalic - Eye Eye exam: Present: EOMI. Absent: scleral icterus Pupils: Present: ELINA, normal accommodation - ENT ENT exam: Present: normal exam, normal oropharynx - Neck Neck exam: Present: normal inspection. Absent: lymphadenopathy - Respiratory Respiratory exam: Present: clear to auscultation bilaterally. Absent: accessory muscle use - Cardiovascular Cardiovascular exam: Present: regular rate and rhythm - GI/Abdominal GI/Abdominal exam: Present: normal bowel sounds, soft. Absent: tenderness - Extremities Exam Extremities exam: Present: normal inspection. Absent: edema - Back Exam Back exam: Present: normal inspection. Absent: muscle spasm - Neurological Exam Neurological exam: Present: alert, oriented X3 - Psychiatric Psychiatric exam: Present: normal affect, normal mood - Skin Skin exam: Present: normal color, warm, dry, intact Results - Labs CBC & BMP: 09/09/16 06:21 09/09/16 06:21 Lab Results: I have reviewed the past 24 hour labs <Adrien Williamson - Last Filed: 09/10/16 11:48> Exam - Constitutional Vitals: Period Temp Pulse Resp BP Sys/Johnson Pulse Ox Last 24 Hr 96.4 F-98.2 F 73-95 16-18 117-138/65-81 98-100 Results - Labs CBC & BMP: 09/09/16 06:21 09/09/16 06:21
[2016-09-10] MEDS: ERTAPENEM 1,000 MG in SODIUM CHLORIDE 0.9% 100 ML IV SCH (12:23)
[2016-09-10] MEDS: ZALEPLON 5 MG CAPSULE PO SCH (20:19)
[2016-09-10] MEDS: ENOXAPARIN 40 MG/0.4 ML SYRINGE SUBCUT SCH (20:19)
[2016-09-10] MEDS: BACLOFEN 10 MG TABLET PO SCH (20:19)
[2016-09-11] MEDS: VANCOMYCIN INJ 1,000 MG in SODIUM CHLORIDE 0.9% 250 ML IV SCH ×3 (00:28→17:47)
[2016-09-11 06:00] LABS: Basophils % 0.3 % (0.0-0.8); Eosinophils # 0.2 10*3/uL (0.0-0.87); Eosinophils % 2.1 % (0.00-10.9); Hematocrit 33.3 VOL% (42.0-52.0); Hemoglobin 10.6 GM/DL (14.0-18.0); Immature Granulocytes % 0.7 %; Immature Granulocytes Absolute 0.08 #; Lymphocytes # 2.7 10*3/uL (1.4-4.0); Lymphocytes % 24.5 % (21.2-54.2); Mean Corpuscular HGB Conc 31.8 GM/DL (32-36); Mean Corpuscular Hemoglobin 27 PG (27-34); Mean Corpuscular Volume 83.7 FL (87-102); Mean Platelet Volume 9.2 FL (9.6-12.0); Monocytes # 0.9 10*3/uL (0.11-0.8); Monocytes % 8.1 % (1.7-12.7); Neutrophils % 64.3 % (38.7-73.9); Platelet Count 612 T/CUMM (130-400); Red Blood Count 3.98 MC/CUMM (3.8-5.5); Red Cell Distribution Width 14.7 % (9.3-17.3); White Blood Count 10.9 T/CUMM (4-12)
[2016-09-11] MEDS: LORazepam 2 MG/1 ML VIAL IV PRN ×3 (06:15→23:08)
[2016-09-11 06:55] LABS: Albumin 1.8 G/DL (3.4-5.0); Bilirubin,Total 0.4 MG/DL (0.2-1.0); Calcium 8.2 MG/DL (8.5-10.1); Osmolality,Calculated 290.1 MOS/KG (273-304); Potassium 3.8 MMOL/L (3.5-5.1); Total Protein 5.9 G/DL (6.4-8.3)
[2016-09-11] MEDS: CITALOPRAM 20 MG TABLET PO SCH (09:44)
[2016-09-11] MEDS: DOCUSATE SODIUM 100 MG CAPSULE PO PRN (09:44)
[2016-09-11] MEDS: PREGABALIN 50 MG CAPSULE PO SCH (09:45)
[2016-09-11] MEDS: PANTOPRAZOLE 40 MG TABLET PO SCH (09:45)
[2016-09-11] MEDS: SODIUM CHLORIDE 0.9% 1,000 ML IV SCH (09:51)
--- NOTE | 2016-09-11 10:00 | General Surgery Progress Note ---
Assessment and Plan (1) sacral decubitus wound Status: Acute Assessment and plan: With the nurses felt we rolled the patient and I carefully looked at each of these areas of breakdown and I am not impressed that the decubiti look bad enough to result in a white count of 30,000. This appears somewhat chronic over the sacral area and I did not feel that this was necrotic. I will continue to follow this with you but at this time I do not see evidence of an abscess or necrotizing infection. 09/05: He does not appear ill and is afebrile. He had a markedly elevated white blood cell count yesterday. In looking at his chronic-appearing sacral ulcer I think that it is unlikely to be the source of his elevated white count and it does not really look actively infected. I can debride this wound but I am surprised if there is any direct septic focus related to this ulcer. Feeling the sacral wound will be another very difficult matter. This patient may require fecal diversion to have any hope of healing this wound which she is frequently contaminating on a daily basis his bowel movements. He had cultures that are positive from the wound which I would expect in a chronic wound that is being continually contaminated. If we do not find another source for his elevated white blood cell count then I would be happy to take him to the OR for exploration and debridement of these pressure sores. 09/06: He continues to have high fevers and a markedly elevated white blood cell count. His sacral decubitus ulcer has only chronic appearance and no evidence of acute infection on exam. I could not guarantee that there is not an underlying deep problem however his urinalysis is coming back consistent with urinary tract infection and I think his fever and white cell count or most likely from his urine. Considering how high these are I have recommended that we get a CT scan of his abdomen and pelvis. The patient is refusing all treatment. I have recommended aggressive treatment of his sacral ulcer and also I think that he would probably benefit from fecal diversion. All of this was discussed in detail with he and his family. I think his family understands the serious nature of his infection however the patient is demanding that we bring him papers for him to be released to go home. I did explain to him that it is not uncommon for paraplegic patients to from infection such as this 09/11: The sacral wound looks good with no signs of active infection. I would continue frequent turning and dressing changes. He is a poor candidate for flap. The additional area along his right hip of unclear etiology is growing Bacteroides. I think we need to keep the drain for now to decompress this very large potential space in his right hip. I would continue antibiotics. Current Visit: Yes Subjective Patient reports: Present: feels better, pain is less. Absent: nausea, vomiting , fever Exam - Constitutional Vitals: Period Temp Pulse Resp BP Sys/Johnson Pulse Ox Last 24 Hr 96.8 F-97.8 F 72-95 16-18 105-150/60-99 97-100 General appearance: no acute distress, cachectic - ENT Mouth exam: Present: normal voice - Respiratory Respiratory exam: Absent: accessory muscle use - GI/Abdominal GI/Abdominal exam: Present: soft. Absent: distended, tenderness - Extremities Exam Extremities exam: Present: other (the sacral ulcer is clean granulated with no signs of active infection or necrosis. The right hip has no erythema or induration or crepitus. There is serosanguineous drainage in the SUNITHA drain.) Results - Labs CBC & BMP: 09/11/16 05:50 09/11/16 05:50 Lab Results: I have reviewed the past 24 hour labs
[2016-09-11] MEDS: ERTAPENEM 1,000 MG in SODIUM CHLORIDE 0.9% 100 ML IV SCH (15:35)
--- NOTE | 2016-09-11 17:43 | Hospitalist Progress Note ---
Assessment and Plan (1) Muscle abscess Status: Acute Assessment and plan: Going to add Flagyl today and discontinue ceftaz pain in order to improve coverage for Bacteroides fragilis. Current Visit: Yes (2) sacral decubitus wound Status: Acute Current Visit: Yes (3) Quadriplegia following spinal cord injury Status: Acute Current Visit: Yes Hospitalist: Subjective Interval history: The patient is having diaphoresis. Culture of the wound at the right hip taken intraoperatively reveals Bacteroides fragilis. The patient will continue on IV antibiotics and wound care. Exam - Constitutional Vitals: Period Temp Pulse Resp BP Sys/Johnson Pulse Ox Last 24 Hr 96.8 F-98.6 F 73-95 16-18 105-148/60-99 97-100 Exam: Constitutional System: Mild distress. No tremulousness. Head: Normocephalic, atraumatic. Ears, Nose and Throat System: No evidence of Otitis or Mastoiditis. No epistaxis or discharge Eyes System: Pupils equal, round, and reactive. Extraocular muscles intact. Neck: Supple, without adenopathy, No jugular venous distention. No thyromegaly , neck mass, or prior surgery apparent. Respiratory System: Chest clear to auscultation. Cardiovascular System: Heart with regular rate and rhythm. No murmur. GI System: Abdomen soft, nontender. Normoactive bowel sounds present. Results - Labs CBC & BMP: 09/11/16 05:50 09/11/16 05:50 Lab Results: I have reviewed the past 24 hour labs
[2016-09-11] MEDS: COLLAGENASE OINT 30 GM TUBE TOP SCH (17:50)
[2016-09-11] MEDS: metroNIDAZOLE INJ 500 MG in PREMIX 1 EACH IV SCH (18:39)
[2016-09-11] MEDS: BACLOFEN 10 MG TABLET PO SCH (21:02)
[2016-09-11] MEDS: ENOXAPARIN 40 MG/0.4 ML SYRINGE SUBCUT SCH (21:03)
[2016-09-12] MEDS: VANCOMYCIN INJ 1,000 MG in SODIUM CHLORIDE 0.9% 250 ML IV SCH ×3 (00:01→16:40)
[2016-09-12] MEDS: metroNIDAZOLE INJ 500 MG in PREMIX 1 EACH IV SCH ×3 (03:36→18:09)
[2016-09-12] MEDS: SODIUM CHLORIDE 0.9% 1,000 ML IV SCH ×6 (05:38→17:45)
[2016-09-12] MEDS: DOCUSATE SODIUM 100 MG CAPSULE PO PRN (08:40)
[2016-09-12] MEDS: CITALOPRAM 20 MG TABLET PO SCH (08:40)
[2016-09-12] MEDS: PANTOPRAZOLE 40 MG TABLET PO SCH (08:40)
[2016-09-12] MEDS: LORazepam 2 MG/1 ML VIAL IV PRN ×3 (08:51→20:06)
--- NOTE | 2016-09-12 09:16 | Hospitalist Progress Note ---
Assessment and Plan (1) Muscle abscess Status: Acute Assessment and plan: Going to add Flagyl today and discontinue ceftazidime in order to improve coverage for Bacteroides fragilis. Current Visit: Yes (2) sacral decubitus wound Status: Acute Current Visit: Yes (3) Quadriplegia following spinal cord injury Status: Acute Current Visit: Yes Hospitalist: Subjective Interval history: Mr. Landon is resting quietly in bed today. He doesn't have any diaphoresis Exam - Constitutional Vitals: Period Temp Pulse Resp BP Sys/Johnson Pulse Ox Last 24 Hr 97.8 F-98.6 F 68-92 16-18 110-148/67-81 97-99 Exam: Constitutional System: Mild distress. No tremulousness. Head: Normocephalic, atraumatic. Ears, Nose and Throat System: No evidence of Otitis or Mastoiditis. No epistaxis or discharge Eyes System: Pupils equal, round, and reactive. Extraocular muscles intact. Neck: Supple, without adenopathy, No jugular venous distention. No thyromegaly , neck mass, or prior surgery apparent. Respiratory System: Chest clear to auscultation. Cardiovascular System: Heart with regular rate and rhythm. No murmur. GI System: Abdomen soft, nontender. Normoactive bowel sounds present. Results - Labs CBC & BMP: 09/11/16 05:50 09/11/16 05:50 Lab Results: I have reviewed the past 24 hour labs
[2016-09-12] MEDS: ERTAPENEM 1,000 MG in SODIUM CHLORIDE 0.9% 100 ML IV SCH (12:03)
[2016-09-12] MEDS: COLLAGENASE OINT 30 GM TUBE TOP SCH (12:05)
--- NOTE | 2016-09-12 14:16 | Event Note ---
09/12/2016 Patient is shivering a little bit in his whole bed is a little bit with her not sure whether this is from urine or some sweating at this point. The wound on his right thigh and hip area looks okay although T-incision is small and the drainage seemed to be very minimal. Sacral ulcer remains clean with a good granulating base no sign of any gross infection in it. Leopold he needed some blood cultures although he may refuse this.
[2016-09-12] MEDS: BACLOFEN 10 MG TABLET PO SCH (20:06)
[2016-09-12] MEDS: ENOXAPARIN 40 MG/0.4 ML SYRINGE SUBCUT SCH (20:06)
[2016-09-13] MEDS: LORazepam 2 MG/1 ML VIAL IV PRN ×4 (00:02→20:33)
[2016-09-13] MEDS: VANCOMYCIN INJ 1,000 MG in SODIUM CHLORIDE 0.9% 250 ML IV SCH ×3 (00:02→16:32)
[2016-09-13] MEDS: metroNIDAZOLE INJ 500 MG in PREMIX 1 EACH IV SCH ×3 (02:09→18:33)
[2016-09-13 06:46] LABS: Basophils % 0.3 % (0.0-0.8); Eosinophils # 0.3 10*3/uL (0.0-0.87); Hematocrit 30.7 VOL% (42.0-52.0); Hemoglobin 9.8 GM/DL (14.0-18.0); Immature Granulocytes % 0.6 %; Immature Granulocytes Absolute 0.08 #; Lymphocytes # 2.5 10*3/uL (1.4-4.0); Mean Corpuscular HGB Conc 31.9 GM/DL (32-36); Mean Corpuscular Hemoglobin 27 PG (27-34); Mean Corpuscular Volume 84.1 FL (87-102); Mean Platelet Volume 9.9 FL (9.6-12.0); Monocytes # 1.1 10*3/uL (0.11-0.8); Monocytes % 8.7 % (1.7-12.7); Neutrophils # 8.7 10*3/uL (1.4-7.4); Neutrophils % 68.4 % (38.7-73.9); Platelet Count 576 T/CUMM (130-400); Red Blood Count 3.65 MC/CUMM (3.8-5.5); Red Cell Distribution Width 15.4 % (9.3-17.3); White Blood Count 12.7 T/CUMM (4-12)
[2016-09-13 07:09] LABS: Calcium 7.8 MG/DL (8.5-10.1); Magnesium 2.3 MG/DL (1.8-2.4); Osmolality,Calculated 295.9 MOS/KG (273-304); Potassium 3.5 MMOL/L (3.5-5.1)
[2016-09-13] MEDS: CITALOPRAM 20 MG TABLET PO SCH (08:24)
[2016-09-13] MEDS: PANTOPRAZOLE 40 MG TABLET PO SCH (08:24)
[2016-09-13] MEDS: COLLAGENASE OINT 30 GM TUBE TOP SCH (08:33)
--- NOTE | 2016-09-13 11:12 | Event Note ---
09/13/2016 Afebrile with little change in general status at this time.
[2016-09-13] MEDS: ERTAPENEM 1,000 MG in SODIUM CHLORIDE 0.9% 100 ML IV SCH (13:10)
--- NOTE | 2016-09-13 15:55 | Hospitalist Progress Note ---
Assessment and Plan (1) Muscle abscess Status: Acute Assessment and plan: Going to add Flagyl today and discontinue ceftazidime in order to improve coverage for Bacteroides fragilis. Possible discharge home on Wednesday or Wednesday Current Visit: Yes (2) sacral decubitus wound Status: Acute Current Visit: Yes (3) Quadriplegia following spinal cord injury Status: Acute Current Visit: Yes Hospitalist: Subjective Interval history: There are no new events. The patient describes increased pain in the left neck where he has radicular discomfort after his spinal injury. I'm going to increase Lyrica back to where he was taking before this recent illness Exam - Constitutional Vitals: Period Temp Pulse Resp BP Sys/Johnson Pulse Ox Last 24 Hr 97.4 F-98.4 F 63-95 14-18 94-142/58-83 98-100 Exam: Constitutional System: Mild distress. No tremulousness. Head: Normocephalic, atraumatic. Ears, Nose and Throat System: No evidence of Otitis or Mastoiditis. No epistaxis or discharge Eyes System: Pupils equal, round, and reactive. Extraocular muscles intact. Neck: Supple, without adenopathy, No jugular venous distention. No thyromegaly , neck mass, or prior surgery apparent. Respiratory System: Chest clear to auscultation. Cardiovascular System: Heart with regular rate and rhythm. No murmur. GI System: Abdomen soft, nontender. Normoactive bowel sounds present. Results - Labs CBC & BMP: 09/13/16 06:06 09/13/16 06:06 Lab Results: I have reviewed the past 24 hour labs
[2016-09-13] MEDS: ENOXAPARIN 40 MG/0.4 ML SYRINGE SUBCUT SCH (20:34)
[2016-09-13] MEDS: BACLOFEN 10 MG TABLET PO SCH (20:34)
[2016-09-13] MEDS: PREGABALIN 50 MG CAPSULE PO SCH (20:34)
[2016-09-13] MEDS: SODIUM CHLORIDE 0.9% 1,000 ML IV SCH ×2 (23:10)
[2016-09-14] MEDS: VANCOMYCIN INJ 1,000 MG in SODIUM CHLORIDE 0.9% 250 ML IV SCH ×3 (00:11→18:53)
[2016-09-14] MEDS: metroNIDAZOLE INJ 500 MG in PREMIX 1 EACH IV SCH ×3 (03:03→21:30)
--- NOTE | 2016-09-14 06:27 | EKG Report ---
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
--- NOTE | 2016-09-14 07:56 | General Surgery Progress Note ---
Assessment and Plan (1) sacral decubitus wound Status: Acute Assessment and plan: With the nurses felt we rolled the patient and I carefully looked at each of these areas of breakdown and I am not impressed that the decubiti look bad enough to result in a white count of 30,000. This appears somewhat chronic over the sacral area and I did not feel that this was necrotic. I will continue to follow this with you but at this time I do not see evidence of an abscess or necrotizing infection. 09/05: He does not appear ill and is afebrile. He had a markedly elevated white blood cell count yesterday. In looking at his chronic-appearing sacral ulcer I think that it is unlikely to be the source of his elevated white count and it does not really look actively infected. I can debride this wound but I am surprised if there is any direct septic focus related to this ulcer. Feeling the sacral wound will be another very difficult matter. This patient may require fecal diversion to have any hope of healing this wound which she is frequently contaminating on a daily basis his bowel movements. He had cultures that are positive from the wound which I would expect in a chronic wound that is being continually contaminated. If we do not find another source for his elevated white blood cell count then I would be happy to take him to the OR for exploration and debridement of these pressure sores. 09/06: He continues to have high fevers and a markedly elevated white blood cell count. His sacral decubitus ulcer has only chronic appearance and no evidence of acute infection on exam. I could not guarantee that there is not an underlying deep problem however his urinalysis is coming back consistent with urinary tract infection and I think his fever and white cell count or most likely from his urine. Considering how high these are I have recommended that we get a CT scan of his abdomen and pelvis. The patient is refusing all treatment. I have recommended aggressive treatment of his sacral ulcer and also I think that he would probably benefit from fecal diversion. All of this was discussed in detail with he and his family. I think his family understands the serious nature of his infection however the patient is demanding that we bring him papers for him to be released to go home. I did explain to him that it is not uncommon for paraplegic patients to from infection such as this 09/11: The sacral wound looks good with no signs of active infection. I would continue frequent turning and dressing changes. He is a poor candidate for flap. The additional area along his right hip of unclear etiology is growing Bacteroides. I think we need to keep the drain for now to decompress this very large potential space in his right hip. I would continue antibiotics. 09/14: His sacral wound is fine and there are no signs of active section. His white blood cell count came down to normal but is since risen and we will check a follow-up CT scan of his pelvis to evaluate the large abscess in this hip. This abscess grew Bacteroides. There is no purulence in his SUNITHA drain in the output from this is decreased considerably point where it is almost ready to be pulled Current Visit: Yes Subjective Patient reports: Present: feels better, tolerating a regular diet. Absent: still having pain, nausea, vomiting, shortness of breath, fever Exam - Constitutional Vitals: Period Temp Pulse Resp BP Sys/Johnson Pulse Ox Last 24 Hr 97.3 F-99.2 F 32-98 12-18 110-205/56-100 98-100 General appearance: no acute distress - Eye Eye exam: Absent: scleral icterus - ENT Mouth exam: Present: normal voice - Respiratory Respiratory exam: Absent: accessory muscle use - GI/Abdominal GI/Abdominal exam: Present: soft. Absent: distended, tenderness, rebound - Back Exam Back exam: Present: other (his wounds look fine and there is no purulence in his SUNITHA drain) - Neurological Exam Neurological exam: Present: alert, oriented X3 Results - Labs CBC & BMP: 09/13/16 06:06 09/13/16 06:06
[2016-09-14] MEDS: PANTOPRAZOLE 40 MG TABLET PO SCH (09:59)
[2016-09-14] MEDS: PREGABALIN 50 MG CAPSULE PO SCH ×2 (09:59→21:31)
[2016-09-14] MEDS: CITALOPRAM 20 MG TABLET PO SCH (09:59)
[2016-09-14] MEDS: LORazepam 2 MG/1 ML VIAL IV PRN ×3 (10:12→22:19)
--- NOTE | 2016-09-14 10:18 | Hospitalist Progress Note ---
Assessment and Plan (1) Sepsis Status: Acute Current Visit: Yes (2) Leukocytosis Status: Acute Current Visit: Yes (3) sacral decubitus wound Status: Acute Current Visit: Yes (4) Infected wound Status: Acute Assessment and plan: Plan for our patient #1 admit the patient service #2 IV antibiotics vanc and Zosyn #3 surgery consult number for home meds appropriate 09/04/16 can continue with IV antibiotics and wound care for this patient. It seems like the abx have Agreed well with the patient and his vital signs are improved. He's no longer diaphoretic he's no longer tachycardic. Awaiting surgery's input as far as his sacral decubitus ulcer. 09/14/16. Follow-up on the results of his recent CT scan. Continue wound care. Complete blood count when okay with surgery. Home when okay with surgery. We 'll switch over his IV fluids in order to bring down his sodium a little Current Visit: Yes Hospitalist: Subjective Interval history: Patient started this question about when he can be discharged. He did have an episode last night where he was bradycardic and hypertensive. Order to UDS but patient refused to give any urine. He seems appropriate today but been no other events since last night. Exam - Constitutional Vitals: Period Temp Pulse Resp BP Sys/Johnson Pulse Ox Last 24 Hr 97.3 F-99.2 F 32-98 12-18 110-205/56-100 98-100 General appearance: under weight - Head Head exam: Present: normal inspection - Eye Eye exam: Present: EOMI Pupils: Present: ELINA - ENT ENT exam: Present: normal exam - Neck Neck exam: Present: normal inspection - Respiratory Respiratory exam: Present: clear to auscultation bilaterally - Cardiovascular Cardiovascular exam: Present: tachycardia - GI/Abdominal GI/Abdominal exam: Present: normal bowel sounds - Extremities Exam Extremities exam: Present: normal inspection - Back Exam Back exam: Present: His wounds are fine and there is no purulence in his SUNITHA drain - Neurological Exam Neurological exam: Present: alert - Psychiatric Psychiatric exam: Present: normal affect Results - Labs CBC & BMP: 09/13/16 06:06 09/13/16 06:06
--- NOTE | 2016-09-14 10:24 | CT Report ---
CT abdomen pelvis w con Indication: Right hip abscess follow-up. CT ABDOMEN AND PELVIS WITH CONTRAST DLP: 382 mGy*cm Comparison: 09/07/2016 Technique: Axial CT images of the abdomen and pelvis were obtained with IV contrast; Omnipaque 350, 100 cc. Oral contrast was not administered. Abdomen: Heart size is normal. Lung bases are clear except for minimal atelectasis. Liver, gallbladder, spleen, pancreas, adrenal glands and kidneys are unchanged. No bowel obstruction. Aorta is of normal caliber. No lymphadenopathy. Pelvis: Small amount of fluid is present in the pelvis, abnormal in a male. Urinary bladder and rectosigmoid colon are unremarkable. Prostate is normal in size. Ureters are unremarkable as well. No bone lesions. In the right hip region, and SUNITHA drain has decompressed every abscess pocket present on the initial CT as far as imaged. The lower extent of the SUNITHA drain is not included on this exam. There is a thin 7 mm thick peripherally enhancing collection of the anterolateral right hip that is virtually completely decompressed. No new abscess identified. Impression: 1. SUNITHA drain and right proximal thigh has decompressed all of the visualized abscess pockets present. The imaging does not carry very much into the right thigh and additional fluid collections may be present distally but just not included in this study. Recommend continued imaging further distal in the right thigh. 2. Small amount of free fluid in the pelvis noted, abnormal in a male. This is, however, unchanged from the earlier study. PROCEDURE INTERPRETED AT [facility] [place] DEPARTMENT OF RADIOLOGY Final Report Signed by: Tomy Jovel M.D.
[2016-09-14] MEDS: COLLAGENASE OINT 30 GM TUBE TOP SCH (11:00)
[2016-09-14] MEDS: SODIUM CHLOR 0.45% KCL 20 MEQ 20 MEQ/1,000 ML BAG IV SCH (12:30)
[2016-09-14] MEDS: ERTAPENEM 1,000 MG in SODIUM CHLORIDE 0.9% 100 ML IV SCH (13:52)
[2016-09-14] MEDS: ENOXAPARIN 40 MG/0.4 ML SYRINGE SUBCUT SCH (21:31)
[2016-09-14] MEDS: BACLOFEN 10 MG TABLET PO SCH (21:31)
[2016-09-15] MEDS: VANCOMYCIN INJ 1,000 MG in SODIUM CHLORIDE 0.9% 250 ML IV SCH ×3 (01:14→17:37)
[2016-09-15] MEDS: LORazepam 2 MG/1 ML VIAL IV PRN ×2 (02:54→09:39)
[2016-09-15] MEDS: metroNIDAZOLE INJ 500 MG in PREMIX 1 EACH IV SCH ×2 (06:43→17:37)
[2016-09-15 06:54] LABS: Basophils % 0.4 % (0.0-0.8); Eosinophils # 0.1 10*3/uL (0.0-0.87); Eosinophils % 1.1 % (0.00-10.9); Hematocrit 26.2 VOL% (42.0-52.0); Hemoglobin 8.5 GM/DL (14.0-18.0); Immature Granulocytes % 0.6 %; Immature Granulocytes Absolute 0.06 #; Lymphocytes # 2.3 10*3/uL (1.4-4.0); Lymphocytes % 21.6 % (21.2-54.2); Mean Corpuscular HGB Conc 32.4 GM/DL (32-36); Mean Corpuscular Hemoglobin 27 PG (27-34); Mean Corpuscular Volume 83.4 FL (87-102); Mean Platelet Volume 9.9 FL (9.6-12.0); Monocytes % 9.5 % (1.7-12.7); Neutrophils # 7.1 10*3/uL (1.4-7.4); Neutrophils % 66.8 % (38.7-73.9); Platelet Count 434 T/CUMM (130-400); Red Blood Count 3.14 MC/CUMM (3.8-5.5); Red Cell Distribution Width 15.9 % (9.3-17.3); White Blood Count 10.6 T/CUMM (4-12)
--- NOTE | 2016-09-15 07:24 | General Surgery Progress Note ---
Assessment and Plan (1) sacral decubitus wound Status: Acute Assessment and plan: With the nurses felt we rolled the patient and I carefully looked at each of these areas of breakdown and I am not impressed that the decubiti look bad enough to result in a white count of 30,000. This appears somewhat chronic over the sacral area and I did not feel that this was necrotic. I will continue to follow this with you but at this time I do not see evidence of an abscess or necrotizing infection. 09/05: He does not appear ill and is afebrile. He had a markedly elevated white blood cell count yesterday. In looking at his chronic-appearing sacral ulcer I think that it is unlikely to be the source of his elevated white count and it does not really look actively infected. I can debride this wound but I am surprised if there is any direct septic focus related to this ulcer. Feeling the sacral wound will be another very difficult matter. This patient may require fecal diversion to have any hope of healing this wound which she is frequently contaminating on a daily basis his bowel movements. He had cultures that are positive from the wound which I would expect in a chronic wound that is being continually contaminated. If we do not find another source for his elevated white blood cell count then I would be happy to take him to the OR for exploration and debridement of these pressure sores. 09/06: He continues to have high fevers and a markedly elevated white blood cell count. His sacral decubitus ulcer has only chronic appearance and no evidence of acute infection on exam. I could not guarantee that there is not an underlying deep problem however his urinalysis is coming back consistent with urinary tract infection and I think his fever and white cell count or most likely from his urine. Considering how high these are I have recommended that we get a CT scan of his abdomen and pelvis. The patient is refusing all treatment. I have recommended aggressive treatment of his sacral ulcer and also I think that he would probably benefit from fecal diversion. All of this was discussed in detail with he and his family. I think his family understands the serious nature of his infection however the patient is demanding that we bring him papers for him to be released to go home. I did explain to him that it is not uncommon for paraplegic patients to from infection such as this 09/11: The sacral wound looks good with no signs of active infection. I would continue frequent turning and dressing changes. He is a poor candidate for flap. The additional area along his right hip of unclear etiology is growing Bacteroides. I think we need to keep the drain for now to decompress this very large potential space in his right hip. I would continue antibiotics. 09/14: His sacral wound is fine and there are no signs of active section. His white blood cell count came down to normal but is since risen and we will check a follow-up CT scan of his pelvis to evaluate the large abscess in this hip. This abscess grew Bacteroides. There is no purulence in his SUNITHA drain in the output from this is decreased considerably point where it is almost ready to be pulled 09/15: His sacral ulcer is healing and has no signs of active infection. We repeated his CT scan and each does not show any significant residual fluid collection. This was not a typical abscess as it was not really 4+. All of his drainage is been serosanguineous. His white blood cell count is now normal with a normal differential. His drain can be removed. The patient plans to go home. We have not encourage this. We have offered geriatric social work professor and offered placement in a swing bed or rehabilitation facility. He has declined this every time. I think that his prognosis for the long-term care at home like he is been doing well be very poor. All of these issues were discussed with the patient. I also offered a diverting colostomy. This is been declined as well. Current Visit: Yes Subjective Patient reports: Present: feels better. Absent: still having pain, nausea, vomiting, fever Exam - Constitutional Vitals: Period Temp Pulse Resp BP Sys/Johnson Pulse Ox Last 24 Hr 97.4 F-98.2 F 68-86 16-18 82-144/45-83 97-100 General appearance: no acute distress - Respiratory Respiratory exam: Absent: accessory muscle use - GI/Abdominal GI/Abdominal exam: Present: soft. Absent: distended, tenderness - Extremities Exam Extremities exam: Present: other (his right thigh is unremarkable and there is serosanguineous drainage in his SUNITHA drain) - Back Exam Back exam: Present: other (his sacral ulcer is clean and granulating with no signs of infection). Absent: vertebral tenderness Results - Labs CBC & BMP: 09/15/16 06:33 09/13/16 06:06 Lab Results: I have reviewed the past 24 hour labs - Diagnostic Findings Procedure: CT Abdomen and Pelvis: report reviewed by me
[2016-09-15 07:28] LABS: Calcium 8.3 MG/DL (8.5-10.1); Osmolality,Calculated 283.7 MOS/KG (273-304); Potassium 3.7 MMOL/L (3.5-5.1)
[2016-09-15] MEDS: CITALOPRAM 20 MG TABLET PO SCH (08:47)
[2016-09-15] MEDS: PREGABALIN 50 MG CAPSULE PO SCH (08:47)
[2016-09-15] MEDS: PANTOPRAZOLE 40 MG TABLET PO SCH (08:47)
[2016-09-15] MEDS: SODIUM CHLOR 0.45% KCL 20 MEQ 20 MEQ/1,000 ML BAG IV SCH ×2 (08:50→17:37)
[2016-09-15] MEDS: SODIUM CHLORIDE 0.9% 1,000 ML IV SCH ×2 (08:52→08:53)
[2016-09-15] MEDS: COLLAGENASE OINT 30 GM TUBE TOP SCH (10:00)
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
[2016-09-15 12:17] VITALS: BP 129/77
[2016-09-15] MEDS: ERTAPENEM 1,000 MG in SODIUM CHLORIDE 0.9% 100 ML IV SCH (12:53)
--- NOTE | 2016-09-24 13:40 | Physician Query Form ---
CLICK EDIT DOCUMENT TO SELECT QUERY ANSWER --> OK --> SIGN Harriett Goetz RN Clinical Cardiac Cath Lab Technologist W) [phone] (f) [phone] [email or web address] PROVIDERS: Make your selection(s) from the choices in EACH section by typing an "x" and enter comments in the comment section. Please use your independent medical judgment in providing your response. This request does not imply that any particular answer is desired or expected. CLINICAL INDICATORS: (Providers should not edit this section) Based on documentation of initial wound care assessment "Right hip pressure ulcer stage 3" Based on the above, could you clarify the appropriate diagnosis, if significant , that supports the above abnormalities and additional evaluation, monitoring, and/or treatment rendered: (x ) Agree with initial wound care assessment of right hip ( ) Do NOT agree with initial wound care assessment of right hip ( ) Other, please specify: ( ) Clinically unable to determine COMMENTS: Use of terms such as suspected, likely, or probable (associated with a specific diagnosis that is being evaluated, monitored, or treated as if it exists) are acceptable and can be restated in the discharge summary if not ruled out. [facility]
== END 2016-09-15 16:30 | disposition home or self-care (01) | DRG 871 ==
LOC: EDUNIT# → EDBD → N.ED 17:52 → SUATTDRO 19:53 → N.EDINP 19:53 → N.5E 20:40
PROVIDERS: ADMIT Internal Medicine; ATTEND Internal Medicine

== ENCOUNTER 2017-02-06 22:28 | Inpatient (IN) ==
[2017-02-06 23:55] LABS: Basophils % 0.1 % (0.0-0.8); Eosinophils % 0.1 % (0.00-10.9); Hematocrit 27.7 VOL% (42.0-52.0); Hemoglobin 9.5 GM/DL (14.0-18.0); Immature Granulocytes % 0.9 %; Immature Granulocytes Absolute 0.13 #; Lymphocytes # 1.6 10*3/uL (1.4-4.0); Lymphocytes % 10.9 % (21.2-54.2); Mean Corpuscular HGB Conc 34.3 GM/DL (32-36); Mean Corpuscular Hemoglobin 26 PG (27-34); Mean Corpuscular Volume 76.9 FL (87-102); Mean Platelet Volume 10.4 FL (9.6-12.0); Monocytes # 1.9 10*3/uL (0.11-0.8); Monocytes % 12.4 % (1.7-12.7); Neutrophils # 11.5 10*3/uL (1.4-7.4); Neutrophils % 75.6 % (38.7-73.9); Platelet Count 432 T/CUMM (130-400); Red Cell Distribution Width 15.2 % (9.3-17.3); White Blood Count 15.1 T/CUMM (4-12)
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
[2017-02-07 00:10] LABS: Apearance,Urine CLOUDY (Clear); Bacteria,Urine Occasional /HPF (Few); Bilirubin,Urine Negative (Negative); Blood, Urine Small mg/dL (Negative); Calcium Oxalate Crystals,Urine Occasional /HPF (Few); Glucose,Urine (UA) Negative (Negative); Ketones,Urine Negative (Negative); Nitrite,Urine Negative (Negative); Protein,Urine 30 MG/DL; RBC,Urine 4 /HPF (0-4); Urine Color Yellow (Yellow); Urine Specific Gravity 1.011 (1.001-1.035); WBC,Urine <1 /HPF (0-6)
[2017-02-07 00:14] LABS: Albumin 2.1 G/DL (3.4-5.0); Bilirubin,Total 0.6 MG/DL (0.2-1.0); Calcium 8.2 MG/DL (8.5-10.1); Osmolality,Calculated 259.8 MOS/KG (273-304); Potassium 3.1 MMOL/L (3.5-5.1); Total Protein 7.3 G/DL (6.4-8.3)
[2017-02-07] MEDS ORDERED: SODIUM CHLORIDE 0.9% 1,000 ML IV STA (01:58)
[2017-02-07] MEDS ORDERED: cefTRIAXone 1,000 MG in SODIUM CHLORIDE 0.9% 100 ML IV STA (01:58)
[2017-02-07] MEDS ORDERED: cefTRIAXone 1,000 MG VIAL ONE (02:20)
[2017-02-07] MEDS ORDERED: ONDANSETRON 4 MG/2 ML VIAL IV PRN (02:46)
[2017-02-07] MEDS ORDERED: ACETAMINOPHEN 325 MG TABLET PO PRN (02:46)
[2017-02-07] MEDS ORDERED: SODIUM CHLORIDE 0.9% 1,000 ML IV SCH (03:00)
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
[2017-02-07] MEDS ORDERED: POTASSIUM CHLORIDE 20 MEQ TABLET PO PRN (04:42)
[2017-02-07] MEDS: AZITHROMYCIN INJ 500 MG in SODIUM CHLORIDE 0.9% 250 ML IV SCH (04:44)
[2017-02-07 06:33] LABS: Basophils % 0.1 % (0.0-0.8); Eosinophils % 0.1 % (0.00-10.9); Hematocrit 25.5 VOL% (42.0-52.0); Hemoglobin 8.6 GM/DL (14.0-18.0); Immature Granulocytes % 0.8 %; Immature Granulocytes Absolute 0.12 #; Lymphocytes # 1.2 10*3/uL (1.4-4.0); Lymphocytes % 8.7 % (21.2-54.2); Mean Corpuscular HGB Conc 33.7 GM/DL (32-36); Mean Corpuscular Hemoglobin 26 PG (27-34); Mean Corpuscular Volume 77.7 FL (87-102); Mean Platelet Volume 10.6 FL (9.6-12.0); Monocytes # 1.6 10*3/uL (0.11-0.8); Monocytes % 11.4 % (1.7-12.7); Neutrophils # 11.2 10*3/uL (1.4-7.4); Neutrophils % 78.9 % (38.7-73.9); Platelet Count 425 T/CUMM (130-400); Red Blood Count 3.28 MC/CUMM (3.8-5.5); Red Cell Distribution Width 15.3 % (9.3-17.3); White Blood Count 14.2 T/CUMM (4-12)
[2017-02-07 07:06] LABS: Albumin 1.9 G/DL (3.4-5.0); Bilirubin,Total 0.8 MG/DL (0.2-1.0); Calcium 7.5 MG/DL (8.5-10.1); Osmolality,Calculated 268.1 MOS/KG (273-304); Potassium 3.1 MMOL/L (3.5-5.1); Total Protein 6.5 G/DL (6.4-8.3)
[2017-02-07 07:49] LABS: Hypochromasia Slight
[2017-02-07] MEDS: ALBUTEROL/IPRATROPIUM 3 ML NEB RESP TX SCH ×3 (07:55→19:13)
--- NOTE | 2017-02-07 08:14 | XRay Report ---
Portable chest. Indication: Cough and fever. Comparison: September 03, 2016. The heart and mediastinal contours are unremarkable. The pulmonary vasculature is normal. There is no consolidation, pneumothorax, or pleural effusion. The osseous structures are unremarkable. Impression: No abnormality is seen. PROCEDURE INTERPRETED AT [facility] DEPARTMENT OF RADIOLOGY Final Report Signed by: Dr. Savana Nolasco
[2017-02-07] MEDS: CITALOPRAM 20 MG TABLET PO SCH (09:01)
[2017-02-07] MEDS: ALPRAZolam 0.5 MG TABLET PO SCH ×3 (09:01→22:27)
[2017-02-07] MEDS: PREGABALIN 50 MG CAPSULE PO SCH ×3 (09:01→22:27)
[2017-02-07] MEDS: ENOXAPARIN 40 MG/0.4 ML SYRINGE SUBCUT SCH (09:02)
[2017-02-07] MEDS: PANTOPRAZOLE 40 MG TABLET PO SCH (09:02)
[2017-02-07] MEDS ORDERED: POLYETHYLENE GLYCOL POWDER 255 GM BOTTLE PO ONE (09:37)
--- NOTE | 2017-02-07 11:05 | Hospitalist Progress Note ---
Assessment and Plan (1) Leukocytosis Status: Acute Assessment and plan: may be due to constipation, no infectious source identified, cont rocephin and azithromycin. wounds dont look infected Current Visit: No (2) Quadriplegia following spinal cord injury Status: Acute Assessment and plan: needs daily bowel regimen, disimpact and miralax Current Visit: No (3) Hypokalemia Status: Acute Assessment and plan: replacing and recheck in am Current Visit: Yes (4) Constipation Status: Acute Assessment and plan: kub, disimpact, miralax Current Visit: Yes (5) Anemia Status: Acute Assessment and plan: stable Current Visit: Yes Hospitalist: Subjective Interval history: Patient was sweating when he came in the room. We have removed some of the blankets. He reports that he came in because he was afraid he had pneumonia again. He has not had a bowel movement in several days. His abdomen feels full and he probably needs to be disimpacted. He can use his upper extremities according to nursing. Very sweet boy. He has requested some MiraLAX which he which we will give him Exam - Constitutional Vitals: Period Temp Pulse Resp BP Sys/Johnson Pulse Ox Last 24 Hr 97.9 F-99.9 F 84-117 14-25 96-132/50-91 97-100 Exam: Heart Rate-[RRR] Lungs-[CTAB but diminished] GI-[+bs impacted with stool Ext-[no edema] Neuro quad, alert and oriented times 3] psych [normal mood and affect] General [no acute distress] skin sweating perfusely without fever skin sacral, left hip wounds clean no obvious sign of infection Results - Labs CBC & BMP: 02/07/17 06:20 02/07/17 06:20 Lab Results: I have reviewed the past 24 hour labs Labs: blood cx pending - Diagnostic Findings Procedure: Chest x-ray: report reviewed by me (nothing acute )
[2017-02-07] MEDS ORDERED: POTASSIUM CHLORIDE 20 MEQ TABLET PO ONE (11:06)
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
[2017-02-07] MEDS: SODIUM CHLOR 0.9% KCL 40 MEQ 40 MEQ/1,000 ML BAG IV SCH ×2 (15:32→23:52)
[2017-02-07] MEDS: ZALEPLON 5 MG CAPSULE PO SCH (22:26)
[2017-02-08] MEDS: ALBUTEROL/IPRATROPIUM 3 ML NEB RESP TX SCH ×4 (00:41→19:25)
[2017-02-08] MEDS ORDERED: cefTRIAXone 1,000 MG in SODIUM CHLORIDE 0.9% 100 ML IV SCH (02:00)
[2017-02-08] MEDS: AZITHROMYCIN INJ 500 MG in SODIUM CHLORIDE 0.9% 250 ML IV SCH (04:13)
[2017-02-08 05:48] LABS: Basophils % 0.2 % (0.0-0.8); Eosinophils # 0.2 10*3/uL (0.0-0.87); Eosinophils % 1.3 % (0.00-10.9); Hematocrit 28.2 VOL% (42.0-52.0); Hemoglobin 9.2 GM/DL (14.0-18.0); Immature Granulocytes % 0.9 %; Lymphocytes # 2.5 10*3/uL (1.4-4.0); Lymphocytes % 21.3 % (21.2-54.2); Mean Corpuscular HGB Conc 32.6 GM/DL (32-36); Mean Corpuscular Hemoglobin 26 PG (27-34); Mean Corpuscular Volume 79.7 FL (87-102); Mean Platelet Volume 10.5 FL (9.6-12.0); Monocytes % 8.8 % (1.7-12.7); Neutrophils # 7.8 10*3/uL (1.4-7.4); Neutrophils % 67.5 % (38.7-73.9); Platelet Count 455 T/CUMM (130-400); Red Blood Count 3.54 MC/CUMM (3.8-5.5); Red Cell Distribution Width 15.2 % (9.3-17.3); White Blood Count 11.5 T/CUMM (4-12)
[2017-02-08 06:13] LABS: Calcium 8.2 MG/DL (8.5-10.1); Osmolality,Calculated 273.5 MOS/KG (273-304)
[2017-02-08] MEDS: SODIUM CHLOR 0.9% KCL 40 MEQ 40 MEQ/1,000 ML BAG IV SCH ×4 (07:43→21:42)
[2017-02-08] MEDS: ALPRAZolam 0.5 MG TABLET PO SCH ×3 (10:03→21:43)
[2017-02-08] MEDS: PREGABALIN 50 MG CAPSULE PO SCH ×3 (10:03→21:44)
[2017-02-08] MEDS: ENOXAPARIN 40 MG/0.4 ML SYRINGE SUBCUT SCH (10:04)
[2017-02-08] MEDS: PANTOPRAZOLE 40 MG TABLET PO SCH (10:04)
[2017-02-08] MEDS: CITALOPRAM 20 MG TABLET PO SCH (10:04)
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
[2017-02-08] MEDS: cefTRIAXone 1,000 MG in SODIUM CHLORIDE 0.9% 100 ML IV SCH (15:41)
--- NOTE | 2017-02-08 16:16 | ECHO Report ---
Rick Landon Exam Date: 02/08/2017 13:12 Referring Physician: Technologist: Joyce Macias RDCS Age: 26 Ht (in): 68 Wt (lb): 91 Gender: M Exam Location: [facility] Echo Indications: Pneumonia, Gram positive cocci bacteremia, Anemia, Quadriplegia-follwoing spinal cord injury, Sacral decubitus wound, Fever BP: 121 / 95 HR: 106 Rhythm: Sinus tachycardia Technical Quality: Fair IMPRESSIONS 1. Left ventricle is normal size and normal wall thickness. Ejection fraction is 45-50%. 2. Other cardiac chambers are normal size and function. 3. Cardiac valves appear to be anatomically and functionally normal. 4. There is no gross vegetation noted on the cardiac valves. 5. No pericardial effusion is noted. MEASUREMENTS (Male / Female) Normal Values 2D ECHO LV Diastolic Diameter PLAX 4.4 cm 4.2 - 5.9 / 3.9 - 5.3 cm LV Systolic Diameter PLAX 3.4 cm LV Fractional Shortening PLAX 23.8 % IVS Diastolic Thickness 0.8 cm 0.6 - 1.0 / 0.6 - 0.9 cm LVPW Diastolic Thickness 0.9 cm 0.6 - 1.0 / 0.6 - 0.9 cm RV Internal Dim ED PLAX 3.1 cm Aortic Root Diameter 2.9 cm LA Systolic Diameter LX 2.9 cm 3.0 - 4.0 / 2.7 - 3.8 cm DOPPLER TR Peak Velocity 259.0 cm/s TR Peak Gradient 26.8 mmHg FINDINGS Left Ventricle Normal left ventricular cavity size. Normal left ventricular wall thickness. Left ventricular ejection fraction is estimated at 45-50 %. Right Ventricle The right ventricle is normal in size and function. Right Atrium The right atrium is normal in size. Left Atrium The left atrium is normal in size. Mitral Valve Morphologically normal mitral valve without significant stenosis or prolapse. There is no mitral regurgitation. Aortic Valve Morphologically normal aortic valve without significant sclerosis or stenosis. There is no aortic regurgitation. Tricuspid Valve Morphologically normal tricuspid valve. Trace tricuspid valve regurgitation. Tricuspid regurgitation velocities suggest a PAP of 37 mmHg. Pulmonic Valve Morphologically normal pulmonic valve without significant stenosis. There is no pulmonic regurgitation. Pericardium Normal pericardium without effusion. Aorta Normal ascending aorta dimension. Tomy Sánchez MD (Electronically Signed) Final Date: 08 February 2017 16:15
[2017-02-08] MEDS: SODIUM HYPOCHLORITE 0.25% IRRIG 473 ML BOTTLE TOP SCH (16:48)
[2017-02-08] MEDS: ZALEPLON 5 MG CAPSULE PO SCH (21:43)
[2017-02-09] MEDS: cefTRIAXone 1,000 MG in SODIUM CHLORIDE 0.9% 100 ML IV SCH ×2 (00:59→14:11)
[2017-02-09] MEDS: ALBUTEROL/IPRATROPIUM 3 ML NEB RESP TX SCH ×4 (01:03→19:17)
[2017-02-09 06:36] LABS: Basophils % 0.1 % (0.0-0.8); Eosinophils # 0.2 10*3/uL (0.0-0.87); Eosinophils % 1.3 % (0.00-10.9); Hemoglobin 8.4 GM/DL (14.0-18.0); Immature Granulocytes % 1.5 %; Immature Granulocytes Absolute 0.23 #; Lymphocytes # 2.3 10*3/uL (1.4-4.0); Lymphocytes % 14.9 % (21.2-54.2); Mean Corpuscular HGB Conc 32.3 GM/DL (32-36); Mean Corpuscular Hemoglobin 26 PG (27-34); Mean Platelet Volume 11.2 FL (9.6-12.0); Monocytes # 1.1 10*3/uL (0.11-0.8); Neutrophils # 11.8 10*3/uL (1.4-7.4); Neutrophils % 75.2 % (38.7-73.9); Platelet Count 510 T/CUMM (130-400); Red Blood Count 3.25 MC/CUMM (3.8-5.5); Red Cell Distribution Width 15.8 % (9.3-17.3); White Blood Count 15.7 T/CUMM (4-12)
--- NOTE | 2017-02-09 07:08 | XRay Report ---
Exam: XR chest 1V Indication: Cough Shortness of breath Comparison study: Prior chest radiograph 02/06/2017 Findings: Minimal right basilar airspace and interstitial opacities are noted. The heart, mediastinum and bony structures are stable from prior. There is no pneumothorax or pleural effusion identified. Impression: New right basilar opacities may represent atelectasis although developing infectious/inflammatory infiltrate is not excluded. PROCEDURE INTERPRETED AT [facility] DEPARTMENT OF RADIOLOGY Final Report Signed by: Garfield Bach
[2017-02-09] MEDS: SODIUM CHLOR 0.9% KCL 40 MEQ 40 MEQ/1,000 ML BAG IV SCH ×5 (07:32→23:42)
[2017-02-09] MEDS: ENOXAPARIN 40 MG/0.4 ML SYRINGE SUBCUT SCH (08:02)
[2017-02-09] MEDS ORDERED: AZITHROMYCIN 250 MG TABLET PO SCH (09:00)
--- NOTE | 2017-02-09 09:29 | Physician Query Form ---
CLICK EDIT DOCUMENT TO SELECT QUERY ANSWER --> OK --> SIGN Elin Kraft RN Clinical Email Specialist W) [phone] (f) [phone] [email or web address]: Make your selection(s) from the choices in EACH section by typing an "x" and enter comments in the comment section. Please use your independent medical judgment in providing your response. This request does not imply that any particular answer is desired or expected. CLINICAL INDICATORS: (Providers should not edit this section) Height: 5ft 8in Weight: 91lbs [employer] Un[employer] BMI: 13.9 Nutritional supplements: boost with trays [place] Stitcher notes:Loss of body fat, Loss of muscle mass, 8 lb/8% weight loss over 5 months - significant, non-healing wounds Based on the above, which following choice most accurately represents the patient's nutritional status? ( ) Malnutrition ( ) mild ( ) moderate ( ) severe ( ) Protein calorie malnutrition ( ) mild ( ) moderate ( ) severe ( ) Emaciation due to malnutrition ( ) Nutritional marasmus ( ) Cachexia ( ) Underweight ( ) No nutritional deficiency ( ) Other, please specify: ( x) Clinically unable to determine Mild Malnutrition (BMI < 18.5, % Normal Body Weight 85-95%) Moderate Malnutrition (BMI < 17, % Normal Body Weight 75-85%) Severe Malnutrition (BMI < 16, % Normal Body Weight < 75%) Source: Kendy COMMENTS: PLEASE ALSO DOCUMENT RESPONSE IN PROGRESS NOTES AND/OR DISCHARGE SUMMARY Use of terms such as suspected, likely, or probable (associated with a specific diagnosis that is being evaluated, monitored, or treated as if it exists) are acceptable and can be restated in the discharge summary if not ruled out. MTDD
[2017-02-09] MEDS: CITALOPRAM 20 MG TABLET PO SCH (09:45)
[2017-02-09] MEDS: PANTOPRAZOLE 40 MG TABLET PO SCH (09:45)
[2017-02-09] MEDS: PREGABALIN 50 MG CAPSULE PO SCH ×3 (09:45→22:02)
[2017-02-09] MEDS: ALPRAZolam 0.5 MG TABLET PO SCH ×3 (09:45→22:02)
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
[2017-02-09] MEDS: SODIUM HYPOCHLORITE 0.25% IRRIG 473 ML BOTTLE TOP SCH (14:12)
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
[2017-02-09] MEDS: VANCOMYCIN INJ 1,000 MG in SODIUM CHLORIDE 0.9% 250 ML IV SCH (17:53)
[2017-02-09] MEDS: ZALEPLON 5 MG CAPSULE PO SCH (22:02)
[2017-02-10] MEDS: ALBUTEROL/IPRATROPIUM 3 ML NEB RESP TX SCH ×4 (00:35→19:44)
[2017-02-10] MEDS: cefTRIAXone 1,000 MG in SODIUM CHLORIDE 0.9% 100 ML IV SCH (02:47)
[2017-02-10] MEDS: VANCOMYCIN INJ 1,000 MG in SODIUM CHLORIDE 0.9% 250 ML IV SCH ×3 (03:33→17:45)
[2017-02-10 05:07] LABS: Basophils % 0.2 % (0.0-0.8); Eosinophils # 0.3 10*3/uL (0.0-0.87); Eosinophils % 1.7 % (0.00-10.9); Hematocrit 26.1 VOL% (42.0-52.0); Hemoglobin 8.3 GM/DL (14.0-18.0); Immature Granulocytes % 1.4 %; Immature Granulocytes Absolute 0.22 #; Lymphocytes # 2.5 10*3/uL (1.4-4.0); Lymphocytes % 15.6 % (21.2-54.2); Mean Corpuscular HGB Conc 31.8 GM/DL (32-36); Mean Corpuscular Hemoglobin 26 PG (27-34); Mean Corpuscular Volume 80.1 FL (87-102); Mean Platelet Volume 10.4 FL (9.6-12.0); Monocytes # 1.1 10*3/uL (0.11-0.8); Monocytes % 6.7 % (1.7-12.7); Neutrophils # 11.9 10*3/uL (1.4-7.4); Neutrophils % 74.4 % (38.7-73.9); Platelet Count 590 T/CUMM (130-400); Red Blood Count 3.26 MC/CUMM (3.8-5.5); Red Cell Distribution Width 15.9 % (9.3-17.3)
[2017-02-10 05:37] LABS: Osmolality,Calculated 273.7 MOS/KG (273-304); Potassium 4.8 MMOL/L (3.5-5.1)
[2017-02-10] MEDS: CITALOPRAM 20 MG TABLET PO SCH (09:12)
[2017-02-10] MEDS: ALPRAZolam 0.5 MG TABLET PO SCH ×3 (09:12→21:14)
[2017-02-10] MEDS: PREGABALIN 50 MG CAPSULE PO SCH ×3 (09:12→21:14)
[2017-02-10] MEDS: AZITHROMYCIN 250 MG TABLET PO SCH (09:12)
[2017-02-10] MEDS: PANTOPRAZOLE 40 MG TABLET PO SCH (09:13)
[2017-02-10] MEDS: SODIUM CHLOR 0.9% KCL 40 MEQ 40 MEQ/1,000 ML BAG IV SCH ×3 (09:13→21:28)
[2017-02-10] MEDS: ENOXAPARIN 40 MG/0.4 ML SYRINGE SUBCUT SCH (09:13)
--- NOTE | 2017-02-10 10:47 | Hospitalist Progress Note ---
Assessment and Plan (1) Gram-positive cocci bacteremia Status: Acute Assessment and plan: Patient is on vancomycin and Rocephin. Zithromax was also added by Dr. Wilson for suspected pneumonia. His blood culture from admission has not speciated yet. Repeat blood cultures so far negative. 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 Current Visit: No Hospitalist: Subjective Interval history: Patient is afebrile and not sweating or fever chills today. He is stable hemodynamically. He was seen by Dr. Wilson and appreciate help. Noted patient was started on vancomycin and Zithromax was added again Exam - Constitutional Vitals: Period Temp Pulse Resp BP Sys/Johnson Pulse Ox Last 24 Hr 97.1 F-99.5 F 78-122 16-22 96-133/60-84 93-100 General appearance: no acute distress - Respiratory Respiratory exam: Present: clear to auscultation bilaterally. Absent: rales, rhonchi - Cardiovascular Cardiovascular exam: Present: regular rate and rhythm, tachycardia - GI/Abdominal GI/Abdominal exam: Present: normal bowel sounds, soft. Absent: ascites, distended, tenderness - Extremities Exam Extremities exam: Present: normal inspection. Absent: edema - Neurological Exam Neurological exam: Present: alert, oriented X3, other (Bilateral extremities weakness chronic) Results - Labs CBC & BMP: 02/10/17 04:46 02/10/17 04:46 Lab Results: I have reviewed the past 24 hour labs
--- NOTE | 2017-02-10 11:34 | Infectious Disease Progress ---
Assessment and Plan (1) Gram-positive cocci bacteremia Status: Acute Assessment and plan: It looks like this may represent contamination so far 1 correlates negative staph species identified, the others pending. Recommendations: Continue vancomycin for now follow-up finalized cultures. If it is 2 different organisms then this would be contamination and treatment would not be indicated. Current Visit: Yes (2) Pneumonia Status: Acute Assessment and plan: I was able to see the chest x-ray image today and the pneumonia is mild at most. 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 continue local wound care. Current Visit: No Infectious Disease - PN: Subj Interval history: Patient feeling okay overall no cough no fever, no nausea vomiting or diarrhea. He was just feeling sleepy today. Infectious Disease Exam (PN) - Constitutional Vitals: Temp Pulse Resp BP Pulse Ox 98.7 F 80 18 133/70 93 L 02/10/17 07:00 02/10/17 07:12 02/10/17 07:12 02/10/17 07:00 02/10/17 07:12 General appearance: no acute distress Exam: General appearance: no acute distress - Eye Eye exam: Present: EOMI. no icterus Pupils: Present: ELINA - ENT ENT exam: no oral exudates - Respiratory Respiratory exam: vesicular BS, no crepitations or wheezes - Cardiovascular Cardiovascular exam: regular rate and rhythm, no murmurs - GI/Abdominal GI/Abdominal exam: normal bowel sounds, soft, non-tender, no organomegaly or mass - Extremities Exam Extremities exam: no edema - Skin Skin exam: no rash - MS Photos of decubitus wounds noted in chart all mostly clean pink Results - Labs CBC & BMP: 02/10/17 04:46 02/10/17 04:46 Lab Results: I have reviewed the past 24 hour labs (Staph hominis in 1 of 2 sets of blood cultures, the other gram-positive cocci ID is pending)
[2017-02-10] MEDS: SODIUM HYPOCHLORITE 0.25% IRRIG 473 ML BOTTLE TOP SCH (16:29)
[2017-02-10] MEDS: ZALEPLON 5 MG CAPSULE PO SCH (21:14)
[2017-02-11] MEDS: cefTRIAXone 1,000 MG in SODIUM CHLORIDE 0.9% 100 ML IV SCH (01:41)
[2017-02-11] MEDS: ALBUTEROL/IPRATROPIUM 3 ML NEB RESP TX SCH ×4 (02:10→19:19)
[2017-02-11] MEDS: VANCOMYCIN INJ 1,000 MG in SODIUM CHLORIDE 0.9% 250 ML IV SCH ×2 (02:20→10:59)
[2017-02-11 07:18] LABS: Basophils % 0.3 % (0.0-0.8); Eosinophils # 0.3 10*3/uL (0.0-0.87); Eosinophils % 2.5 % (0.00-10.9); Hematocrit 28.6 VOL% (42.0-52.0); Hemoglobin 9.1 GM/DL (14.0-18.0); Immature Granulocytes % 1.7 %; Immature Granulocytes Absolute 0.22 #; Lymphocytes # 2.7 10*3/uL (1.4-4.0); Lymphocytes % 20.8 % (21.2-54.2); Mean Corpuscular HGB Conc 31.8 GM/DL (32-36); Mean Corpuscular Hemoglobin 26 PG (27-34); Mean Corpuscular Volume 82.2 FL (87-102); Mean Platelet Volume 10.5 FL (9.6-12.0); Neutrophils # 8.5 10*3/uL (1.4-7.4); Neutrophils % 66.7 % (38.7-73.9); Platelet Count 677 T/CUMM (130-400); Red Blood Count 3.48 MC/CUMM (3.8-5.5); Red Cell Distribution Width 16.6 % (9.3-17.3); White Blood Count 12.7 T/CUMM (4-12)
[2017-02-11 07:47] LABS: Calcium 8.5 MG/DL (8.5-10.1); Osmolality,Calculated 271.7 MOS/KG (273-304)
[2017-02-11] MEDS: AZITHROMYCIN 250 MG TABLET PO SCH (08:50)
[2017-02-11] MEDS: PANTOPRAZOLE 40 MG TABLET PO SCH (08:50)
[2017-02-11] MEDS: ALPRAZolam 0.5 MG TABLET PO SCH ×3 (08:50→20:15)
[2017-02-11] MEDS: CITALOPRAM 20 MG TABLET PO SCH (08:50)
[2017-02-11] MEDS: ENOXAPARIN 40 MG/0.4 ML SYRINGE SUBCUT SCH (08:51)
[2017-02-11] MEDS: PREGABALIN 50 MG CAPSULE PO SCH ×3 (08:51→20:14)
[2017-02-11] MEDS: SODIUM HYPOCHLORITE 0.25% IRRIG 473 ML BOTTLE TOP SCH (08:51)
--- NOTE | 2017-02-11 11:38 | Hospitalist Progress Note ---
Assessment and Plan (1) Gram-positive cocci bacteremia Status: Acute Assessment and plan: Patient is on vancomycin, Zithromax and Rocephin. Blood culture grew staph hominis from admission. 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 Current Visit: No (5) Pneumonia Status: Acute Assessment and plan: Patient also suspected to have pneumonia he is on multiple antibiotics his white count is improved from yesterday and is remain afebrile Current Visit: Yes Hospitalist: Subjective Interval history: Patient is afebrile without any chills or sweating. Noted blood culture from grew staph hominis. Exam - Constitutional Vitals: Period Temp Pulse Resp BP Sys/Johnson Pulse Ox Last 24 Hr 97.7 F-98.3 F 64-118 16-20 97-136/59-86 95-100 General appearance: no acute distress - Respiratory Respiratory exam: Present: clear to auscultation bilaterally. Absent: rales, rhonchi - Cardiovascular Cardiovascular exam: Present: regular rate and rhythm, tachycardia - GI/Abdominal GI/Abdominal exam: Present: normal bowel sounds, soft. Absent: ascites, distended, tenderness - Extremities Exam Extremities exam: Present: normal inspection. Absent: edema - Neurological Exam Neurological exam: Present: alert, oriented X3, other (Bilateral extremities weakness chronic) Results - Labs CBC & BMP: 02/11/17 05:17 02/11/17 05:17 Lab Results: I have reviewed the past 24 hour labs
[2017-02-11] MEDS: VANCOMYCIN INJ 1,250 MG in SODIUM CHLORIDE 0.9% 250 ML IV SCH (13:55)
[2017-02-11] MEDS: SODIUM CHLOR 0.9% KCL 40 MEQ 40 MEQ/1,000 ML BAG IV SCH (15:20)
--- NOTE | 2017-02-11 17:45 | Infectious Disease Progress ---
Assessment and Plan (1) Gram-positive cocci bacteremia Status: Acute Assessment and plan: It looks like this may represent contamination as it seems to be 2 different gram-positive cocci and blood cultures. He is tolerating vancomycin with mildly supra therapeutic trough level. Recommendations: Continue vancomycin pending finalized cultures. If it is 2 different organisms then this would be contamination and treatment would not be indicated. 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 continue local wound care. Current Visit: No Infectious Disease - PN: Subj Interval history: No complaints, anxious to go home, has been afebrile, no nausea vomiting or diarrhea on antibiotics. Nurses that he has been disrespectful and inappropriate at times. Infectious Disease Exam (PN) - Constitutional Vitals: Temp Pulse Resp BP Pulse Ox 98 F 104 H 20 80/40 97 02/11/17 16:00 02/11/17 16:00 02/11/17 16:00 02/11/17 16:00 02/11/17 16:00 General appearance: no acute distress Exam: General appearance: no acute distress - Eye Eye exam: Present: EOMI. no icterus Pupils: Present: ELINA - ENT ENT exam: no oral exudates - Respiratory Respiratory exam: vesicular BS, no crepitations or wheezes - Cardiovascular Cardiovascular exam: regular rate and rhythm, no murmurs - GI/Abdominal GI/Abdominal exam: normal bowel sounds, soft, non-tender, no organomegaly or mass - Extremities Exam Extremities exam: no edema, wasted - Skin Skin exam: no rash Results - Labs CBC & BMP: 02/11/17 05:17 02/11/17 05:17 Lab Results: I have reviewed the past 24 hour labs (ID of second gram-positive cocci cocci in blood pending) - Diagnostic Findings Procedure: Chest x-ray: report reviewed by me, image reviewed by me (Vague opacity right lung base)
[2017-02-11] MEDS: ZALEPLON 5 MG CAPSULE PO SCH (20:15)
[2017-02-12] MEDS: SODIUM CHLOR 0.9% KCL 40 MEQ 40 MEQ/1,000 ML BAG IV SCH ×2 (00:04→23:39)
[2017-02-12] MEDS: VANCOMYCIN INJ 1,250 MG in SODIUM CHLORIDE 0.9% 250 ML IV SCH (00:06)
[2017-02-12] MEDS: ALBUTEROL/IPRATROPIUM 3 ML NEB RESP TX SCH ×4 (00:22→20:12)
[2017-02-12] MEDS: cefTRIAXone 1,000 MG in SODIUM CHLORIDE 0.9% 100 ML IV SCH (02:15)
[2017-02-12] MEDS: SODIUM HYPOCHLORITE 0.25% IRRIG 473 ML BOTTLE TOP SCH (09:24)
[2017-02-12] MEDS: AZITHROMYCIN 250 MG TABLET PO SCH (10:20)
[2017-02-12] MEDS: PANTOPRAZOLE 40 MG TABLET PO SCH (10:20)
[2017-02-12] MEDS: PREGABALIN 50 MG CAPSULE PO SCH ×3 (10:21→21:21)
[2017-02-12] MEDS: ALPRAZolam 0.5 MG TABLET PO SCH ×3 (10:21→21:22)
[2017-02-12] MEDS: CITALOPRAM 20 MG TABLET PO SCH (10:21)
[2017-02-12] MEDS: ENOXAPARIN 40 MG/0.4 ML SYRINGE SUBCUT SCH (10:24)
--- NOTE | 2017-02-12 12:30 | Infectious Disease Progress ---
Assessment and Plan (1) Gram-positive cocci bacteremia Status: Acute Assessment and plan: Confirm with lab today that is actually the same organism and 2 sets of blood cultures. This is likely true infection from his decubitus ulcers. Recommendations: 1. Discontinue vancomycin 2. Continue ceftriaxone until February 22 3. Consult social work supervisor to arrange outpatient IV antibiotics Current Visit: Yes (2) Pneumonia Status: Acute Assessment and plan: Mild pneumonia Recommendations: We remain on ceftriaxone due to the positive blood cultures; can stop azithromycin. 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 continue local wound care. Current Visit: No Infectious Disease - PN: Subj Interval history: Doing well, no pulmonary symptoms, wants to go home, afebrile. Infectious Disease Exam (PN) - Constitutional Vitals: Temp Pulse Resp BP Pulse Ox 97.2 F L 82 20 104/63 97 02/12/17 12:00 02/12/17 12:00 02/12/17 12:00 02/12/17 12:00 02/12/17 12:00 General appearance: no acute distress Exam: General appearance: no acute distress - Eye Eye exam: Present: EOMI. no icterus Pupils: Present: ELINA - ENT ENT exam: no oral exudates - Respiratory Respiratory exam: vesicular BS, no crepitations or wheezes - Cardiovascular Cardiovascular exam: regular rate and rhythm, no murmurs - GI/Abdominal GI/Abdominal exam: normal bowel sounds, soft, non-tender, no organomegaly or mass - Extremities Exam Extremities exam: no edema, wasted - Skin Skin exam: no rash Results - Labs CBC & BMP: 02/11/17 05:17 02/11/17 05:17 Lab Results: I have reviewed the past 24 hour labs (Spoke with lab and second blood cultures the same staph hominis which is methicillin sensitive. Repeat blood cultures negative to date)
--- NOTE | 2017-02-12 12:58 | Physician Query Form ---
CLICK EDIT DOCUMENT TO SELECT QUERY ANSWER --> OK --> SIGN Elin Kraft RN Clinical Financial Sales Manager W) [phone] (f) [phone] [email or web address] PROVIDERS: Make your selection(s) from the choices in EACH section by typing an "x" and enter comments in the comment section Please use your independent medical judgment in providing your response. This request does not imply that any particular answer is desired or expected. CLINICAL INDICATORS: (Providers should not edit this section) Based on documentation of "chronic sacral decubitus wounds". Please clarify the stage of the sacral decubitus wound. Based on the above, could you please provide further clarification regarding the ulcer/wound? LOCATION OF WOUND/ULCER: Sacrum IF A PRESSURE ULCER, PLEASE ALSO INCLUDE THE STAGE* OF THE ULCER: ( ) Stage 1 - Skin intact, non-blanchable redness ( ) Stage 2 - Partial thickness loss of dermis, includes intact or open blister (x ) Stage 3 - Full thickness tissue not including bone, tendon, or muscle ( ) Stage 4 - Full thickness tissue loss, including exposed bone, tendon, or muscle ( ) Unstageable - Full thickness tissue loss in which the base is covered by slough (yellow, roque, aguilar, green or brown) and/or eschar (roque, brown or black) in the wound bed. ( ) Suspected Deep Tissue Injury - Purple or maroon localized area of discolored intact skin or blood-filled blister due to damage of underlying soft tissue from pressure and/or shear. The area may be preceded by tissue that is painful, firm, mushy, boggy, warmer or cooler as compared to adjacent tissue. ( ) Clinically unable to determine *Source: National Pressure Ulcer Advisory Panel (NPUAP) COMMENTS: PLEASE ALSO DOCUMENT RESPONSE IN PROGRESS NOTES AND/OR DISCHARGE SUMMARY Use of terms such as suspected, likely, or probable (associated with a specific diagnosis that is being evaluated, monitored, or treated as if it exists) are acceptable and can be restated in the discharge summary if not ruled out. MTDD
--- NOTE | 2017-02-12 14:53 | Hospitalist Progress Note ---
Assessment and Plan (1) Sacral wound Status: Chronic Assessment and plan: Continuing with wound therapy. Patient will need antibiotics for the next 10 days. 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 Current Visit: Yes (4) Anemia Status: Chronic Assessment and plan: CBC in a.m. Current Visit: Yes Hospitalist: Subjective Interval history: Patient is resting. He is eager to go home. However, had confirmation of blood cultures that were positive and per Dr. Mcintosh patient will need 10 days total of IV antibiotics. Explained this treatment plan to the patient and his family. Exam - Constitutional Vitals: Period Temp Pulse Resp BP Sys/Johnson Pulse Ox Last 24 Hr 95.5 F-99.2 F 72-111 20-22 80-145/40-89 94-99 General appearance: under weight, other (Bedridden) - Head Head exam: Present: normal inspection - Respiratory Respiratory exam: Present: clear to auscultation bilaterally - Cardiovascular Cardiovascular exam: Present: regular rate and rhythm - Back Exam Back exam: Present: normal inspection, other (Sacral wound noted granulation tissue appreciated) - Neurological Exam Neurological exam: Present: alert, oriented X3 - Psychiatric Psychiatric exam: Present: normal affect - Skin Skin exam: Present: other (Sacral wound) Results - Labs CBC & BMP: 02/11/17 05:17 02/11/17 05:17
--- NOTE | 2017-02-12 16:37 | Case Mgmt Physician Query Form ---
TB Signs and Symptoms Screening ([place]) INSTRUCTIONS: To be completed annually on residents/staff with a significant Tuberculin Skin Test (TST) upon admission/hire or a prior significant TST. To be completed on all staff at hire. Please respond to each listed symptom with an (X) in either the "YES" or "NO" box. Do you currently have any of the following symptoms: YES NO ( ) (x ) A cough If yes, is it: ( ) Productive ( ) Non- productive ( ) (x ) Hemoptysis (spitting up blood) ( ) (x ) Chest pains ( ) (x ) Weight Loss ( ) (x ) Fever ( ) (x ) Night Sweats ( ) ( x) Weakness ( ) ( x) Loss of Appetite ( ) (x ) Difficulty Breathing If you answered YES" to any of the above questions, how long have symptoms been present? Comments: If you have any questions, please contact me . Thank you, Madhuri JOHNSTON Email: [email or web address] [facility]
[2017-02-12] MEDS ORDERED: TUBERCULIN SKIN TEST 0.1 ML SYRINGE INTRADERM ONE (18:00)
[2017-02-12] MEDS: ZALEPLON 5 MG CAPSULE PO SCH (21:21)
[2017-02-13] MEDS: ALBUTEROL/IPRATROPIUM 3 ML NEB RESP TX SCH ×4 (00:28→20:02)
[2017-02-13] MEDS: cefTRIAXone 1,000 MG in SODIUM CHLORIDE 0.9% 100 ML IV SCH (01:43)
[2017-02-13 06:54] LABS: Basophils % 0.2 % (0.0-0.8); Eosinophils # 0.2 10*3/uL (0.0-0.87); Eosinophils % 1.9 % (0.00-10.9); Hematocrit 24.3 VOL% (42.0-52.0); Hemoglobin 7.8 GM/DL (14.0-18.0); Immature Granulocytes % 1.5 %; Immature Granulocytes Absolute 0.13 #; Lymphocytes # 2.1 10*3/uL (1.4-4.0); Lymphocytes % 23.9 % (21.2-54.2); Mean Corpuscular HGB Conc 32.1 GM/DL (32-36); Mean Corpuscular Hemoglobin 26 PG (27-34); Mean Corpuscular Volume 81.3 FL (87-102); Mean Platelet Volume 9.9 FL (9.6-12.0); Monocytes # 1.1 10*3/uL (0.11-0.8); Monocytes % 12.6 % (1.7-12.7); Neutrophils # 5.4 10*3/uL (1.4-7.4); Neutrophils % 59.9 % (38.7-73.9); Platelet Count 658 T/CUMM (130-400); Red Blood Count 2.99 MC/CUMM (3.8-5.5); Red Cell Distribution Width 16.4 % (9.3-17.3); White Blood Count 8.9 T/CUMM (4-12)
[2017-02-13] MEDS: ALPRAZolam 0.5 MG TABLET PO SCH ×3 (09:02→20:19)
[2017-02-13] MEDS: PANTOPRAZOLE 40 MG TABLET PO SCH (09:02)
[2017-02-13] MEDS: CITALOPRAM 20 MG TABLET PO SCH (09:02)
[2017-02-13] MEDS: PREGABALIN 50 MG CAPSULE PO SCH ×3 (09:02→20:19)
[2017-02-13] MEDS: ENOXAPARIN 40 MG/0.4 ML SYRINGE SUBCUT SCH (09:04)
[2017-02-13] MEDS: ALBUTEROL 2.5 MG/3 ML NEB RESP TX PRN (09:45)
--- NOTE | 2017-02-13 10:26 | XRay Report ---
Exam: XR chest 1V portable Date: 02/13/2017 9:31 AM Indication: Shortness of breath Comparison: 02/09/2017 Technical: AP chest Findings: There is mild hyperinflation present. A few reticular nodular densities are present. The area of interstitial infiltrate in the right base appears to have nearly completely resolved. Mediastinum is unremarkable. Bony thorax is intact. Heart is normal in size. Impression: 1. Mild hyperinflation with near complete resolution of the infiltrate in the right infrahilar region. PROCEDURE INTERPRETED AT [facility] DEPARTMENT OF RADIOLOGY Final Report Signed by: Dr. Clint Mc
[2017-02-13] MEDS: SODIUM HYPOCHLORITE 0.25% IRRIG 473 ML BOTTLE TOP SCH (11:04)
[2017-02-13] MEDS: SODIUM CHLOR 0.9% KCL 40 MEQ 40 MEQ/1,000 ML BAG IV SCH ×4 (11:05→20:16)
--- NOTE | 2017-02-13 14:04 | Hospitalist Progress Note ---
Assessment and Plan (1) Coag negative Staphylococcus bacteremia Status: Acute Assessment and plan: Continue current antibiotics ID is on board Current Visit: Yes (2) Anemia Status: Chronic Assessment and plan: Most likely associated to chronic inflammation and iron loss from the chronic wound Current Visit: Yes (3) Sacral wound Status: Chronic Assessment and plan: Continue current wound Current Visit: Yes Hospitalist: Subjective Interval history: Patient is seen interviewed and examined and chart has been reviewed. Patient offers no complaints. Admitted to the hospital she has a sacral decubitus ulcer. Blood cultures are positive for staph hominis 2 out of 2 from 02/06/2017. Infectious disease on the case. Exam - Constitutional Vitals: Period Temp Pulse Resp BP Sys/Johnson Pulse Ox Last 24 Hr 97.4 F-98.3 F 94-104 16-20 84-148/52-94 92-100 General appearance: no acute distress - Head Head exam: Present: normocephalic, atraumatic - Eye Eye exam: Present: EOMI Pupils: Present: ELINA - Respiratory Respiratory exam: Present: clear to auscultation bilaterally - Cardiovascular Cardiovascular exam: Present: regular rate and rhythm - GI/Abdominal GI/Abdominal exam: Present: normal bowel sounds, soft - Extremities Exam Extremities exam: Present: normal inspection, other (No edema noted) - Neurological Exam Neurological exam: Present: alert, oriented X3 Results - Labs CBC & BMP: 02/13/17 06:27 02/11/17 05:17 Lab Results: I have reviewed the past 24 hour labs (Noted thrombocytosis and chronic anemia most likely secondary to chronic inflammation)
[2017-02-13] MEDS: ZALEPLON 5 MG CAPSULE PO SCH (20:19)
[2017-02-14] MEDS: ALBUTEROL/IPRATROPIUM 3 ML NEB RESP TX SCH ×4 (01:05→20:14)
[2017-02-14] MEDS: cefTRIAXone 1,000 MG in SODIUM CHLORIDE 0.9% 100 ML IV SCH (02:43)
[2017-02-14] MEDS: CITALOPRAM 20 MG TABLET PO SCH (09:15)
[2017-02-14] MEDS: ALPRAZolam 0.5 MG TABLET PO SCH ×4 (09:15→22:39)
[2017-02-14] MEDS: PREGABALIN 50 MG CAPSULE PO SCH ×4 (09:15→22:39)
[2017-02-14] MEDS: PANTOPRAZOLE 40 MG TABLET PO SCH (09:15)
[2017-02-14] MEDS: SODIUM HYPOCHLORITE 0.25% IRRIG 473 ML BOTTLE TOP SCH (09:16)
[2017-02-14] MEDS: ENOXAPARIN 40 MG/0.4 ML SYRINGE SUBCUT SCH (09:16)
[2017-02-14] MEDS: SODIUM CHLOR 0.9% KCL 40 MEQ 40 MEQ/1,000 ML BAG IV SCH ×2 (09:17→12:45)
--- NOTE | 2017-02-14 11:59 | Hospitalist Progress Note ---
Assessment and Plan (1) Coag negative Staphylococcus bacteremia Status: Acute Assessment and plan: Continue current antibiotics ID is on board. Patient remained stable. Duration of treatment should be short after just discharged tomorrow I believe will need antibiotics Current Visit: Yes (2) Anemia Status: Chronic Assessment and plan: Most likely associated to chronic inflammation and iron loss from the chronic wound. Repeating H&H today. He may need re-transfusion his last hemoglobin of 7.8. All blood products have been prepared is as I dictate. Current Visit: Yes (3) Sacral wound Status: Chronic Assessment and plan: Continue current wound Current Visit: Yes Hospitalist: Subjective Interval history: Patient is seen interviewed and examined and chart has been reviewed. No respiratory problems today. However we need to know what his hematocrit is. He may need more transfusion before discharge him home. I had ordered blood but she refused to have withdrawn into a talk to him again in mid morning so the results are not out yet. I think he should also be type and screen for 2 packed cells because of more than necessary and that he will need to transfusion. Slightly be discharged home tomorrow. We will repeat H&H in the morning Exam - Constitutional Vitals: Period Temp Pulse Resp BP Sys/Johnson Pulse Ox Last 24 Hr 97.6 F-100.0 F 98-127 16-20 93-131/45-91 97-100 General appearance: under weight - Head Head exam: Present: normocephalic, atraumatic - Eye Eye exam: Present: EOMI - ENT ENT exam: Present: normal oropharynx - Respiratory Respiratory exam: Present: clear to auscultation bilaterally - Cardiovascular Cardiovascular exam: Present: regular rate and rhythm - GI/Abdominal GI/Abdominal exam: Present: normal bowel sounds, soft - Extremities Exam Extremities exam: Present: other (Paraplegic) - Neurological Exam Neurological exam: Present: alert, oriented X3 Results - Labs CBC & BMP: 02/13/17 06:27 02/11/17 05:17 Lab Results: I have reviewed the past 24 hour labs
[2017-02-14 12:22] LABS: Basophils % 0.2 % (0.0-0.8); Eosinophils # 0.1 10*3/uL (0.0-0.87); Eosinophils % 0.7 % (0.00-10.9); Hematocrit 28.1 VOL% (42.0-52.0); Hemoglobin 8.9 GM/DL (14.0-18.0); Immature Granulocytes % 1.2 %; Immature Granulocytes Absolute 0.14 #; Lymphocytes # 2.2 10*3/uL (1.4-4.0); Lymphocytes % 18.4 % (21.2-54.2); Mean Corpuscular HGB Conc 31.7 GM/DL (32-36); Mean Corpuscular Hemoglobin 26 PG (27-34); Mean Corpuscular Volume 81.2 FL (87-102); Mean Platelet Volume 9.8 FL (9.6-12.0); Monocytes # 1.8 10*3/uL (0.11-0.8); Monocytes % 14.7 % (1.7-12.7); Neutrophils # 7.9 10*3/uL (1.4-7.4); Neutrophils % 64.8 % (38.7-73.9); Platelet Count 755 T/CUMM (130-400); Red Blood Count 3.46 MC/CUMM (3.8-5.5); Red Cell Distribution Width 16.4 % (9.3-17.3); White Blood Count 12.2 T/CUMM (4-12)
[2017-02-14 12:53] LABS: Calcium 8.7 MG/DL (8.5-10.1); Magnesium 2.7 MG/DL (1.8-2.4); Osmolality,Calculated 279.4 MOS/KG (273-304); Potassium 4.8 MMOL/L (3.5-5.1)
--- NOTE | 2017-02-14 18:25 | Event Note ---
Rapid response was called to patient's room. Patient was unresponsive with his eyes rolled back. Patient was slow to wake up and seems to be sluggish in thought. Nursing reports this is a significant change from usual. My concern is that he had visitors earlier and has partaken of some type drug. I recommend that we transfer him down to the unit check some basic labs on him in addition to a UDS
[2017-02-14 19:03] LABS: Basophils % 0.1 % (0.0-0.8); Eosinophils # 0.1 10*3/uL (0.0-0.87); Eosinophils % 1.1 % (0.00-10.9); Hematocrit 25.6 VOL% (42.0-52.0); Hemoglobin 8.2 GM/DL (14.0-18.0); Lymphocytes # 2.7 10*3/uL (1.4-4.0); Lymphocytes % 26.1 % (21.2-54.2); Mean Corpuscular Hemoglobin 26 PG (27-34); Mean Corpuscular Volume 82.1 FL (87-102); Mean Platelet Volume 9.6 FL (9.6-12.0); Monocytes # 1.4 10*3/uL (0.11-0.8); Monocytes % 13.1 % (1.7-12.7); Neutrophils # 6.1 10*3/uL (1.4-7.4); Neutrophils % 58.6 % (38.7-73.9); Platelet Count 659 T/CUMM (130-400); Red Blood Count 3.12 MC/CUMM (3.8-5.5); Red Cell Distribution Width 16.4 % (9.3-17.3); White Blood Count 10.4 T/CUMM (4-12)
[2017-02-14 19:36] LABS: Calcium 8.7 MG/DL (8.5-10.1); Osmolality,Calculated 270.8 MOS/KG (273-304); Potassium 4.7 MMOL/L (3.5-5.1)
[2017-02-14] MEDS: ALBUTEROL 2.5 MG/3 ML NEB RESP TX PRN (20:12)
[2017-02-14 22:13] LABS: Magnesium 2.6 MG/DL (1.8-2.4); Potassium 4.2 MMOL/L (3.5-5.1)
[2017-02-14] MEDS: ZALEPLON 5 MG CAPSULE PO SCH (22:39)
[2017-02-15] MEDS: ALBUTEROL/IPRATROPIUM 3 ML NEB RESP TX SCH ×4 (01:19→19:22)
[2017-02-15] MEDS: cefTRIAXone 1,000 MG in SODIUM CHLORIDE 0.9% 100 ML IV SCH (03:18)
[2017-02-15] MEDS: ENOXAPARIN 40 MG/0.4 ML SYRINGE SUBCUT SCH (09:10)
[2017-02-15] MEDS: PREGABALIN 50 MG CAPSULE PO SCH ×3 (09:10→20:00)
[2017-02-15] MEDS: ALPRAZolam 0.5 MG TABLET PO SCH ×3 (09:10→20:00)
[2017-02-15] MEDS: SODIUM HYPOCHLORITE 0.25% IRRIG 473 ML BOTTLE TOP SCH (09:11)
[2017-02-15] MEDS: CITALOPRAM 20 MG TABLET PO SCH (09:11)
[2017-02-15] MEDS: PANTOPRAZOLE 40 MG TABLET PO SCH (09:11)
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
--- NOTE | 2017-02-15 11:55 | Infectious Disease Progress ---
Assessment and Plan (1) Gram-positive cocci bacteremia Status: Acute Assessment and plan: ALISA hominis septicemia, likely from his decubitus ulcers. 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 Current Visit: No Infectious Disease - PN: Subj Interval history: Patient doing relatively okay today. He was transferred to ICU last night as he was found altered yesterday. He got back to baseline within apparently a few hours according to the nurse. No fever no other new symptoms. He is angry that he still in the hospital and asking to go home. Infectious Disease Exam (PN) - Constitutional Vitals: Temp Pulse Resp BP Pulse Ox 97.4 F L 98 H 20 112/73 100 02/15/17 04:00 02/15/17 08:08 02/15/17 08:08 02/15/17 07:00 02/15/17 08:08 General appearance: under weight Exam: General appearance: no acute distress, diaphoretic but that is his baseline - Eye Eye exam: Present: EOMI. no icterus Pupils: Present: ELINA - ENT ENT exam: no oral exudates - GI/Abdominal GI/Abdominal exam: normal bowel sounds, soft, non-tender, no organomegaly or mass - Extremities Exam Extremities exam: no edema, wasted - Skin Skin exam: no rash Results - Labs CBC & BMP: 02/14/17 18:46 02/14/17 21:30 Lab Results: I have reviewed the past 24 hour labs (Repeat blood cultures negative)
[2017-02-15] MEDS: ZALEPLON 5 MG CAPSULE PO SCH (20:00)
[2017-02-15] MEDS ORDERED: ZIPRASIDONE 20 MG/1 ML VIAL IM PRN (21:11)
[2017-02-16] MEDS: ALBUTEROL/IPRATROPIUM 3 ML NEB RESP TX SCH ×3 (00:09→13:22)
[2017-02-16] MEDS: cefTRIAXone 1,000 MG in SODIUM CHLORIDE 0.9% 100 ML IV SCH (05:25)
[2017-02-16] MEDS: CITALOPRAM 20 MG TABLET PO SCH (08:13)
[2017-02-16] MEDS: ALPRAZolam 0.5 MG TABLET PO SCH ×2 (08:13→14:49)
[2017-02-16] MEDS: PREGABALIN 50 MG CAPSULE PO SCH ×2 (08:13→14:49)
[2017-02-16] MEDS: PANTOPRAZOLE 40 MG TABLET PO SCH (08:13)
[2017-02-16] MEDS: ENOXAPARIN 40 MG/0.4 ML SYRINGE SUBCUT SCH (08:14)
[2017-02-16 08:15] LABS: Basophils % 0.2 % (0.0-0.8); Eosinophils # 0.1 10*3/uL (0.0-0.87); Eosinophils % 0.3 % (0.00-10.9); Hematocrit 24.6 VOL% (42.0-52.0); Immature Granulocytes % 1.3 %; Immature Granulocytes Absolute 0.24 #; Lymphocytes # 2.5 10*3/uL (1.4-4.0); Lymphocytes % 13.2 % (21.2-54.2); Mean Corpuscular HGB Conc 32.5 GM/DL (32-36); Mean Corpuscular Hemoglobin 26 PG (27-34); Mean Corpuscular Volume 80.7 FL (87-102); Mean Platelet Volume 9.5 FL (9.6-12.0); Monocytes # 2.2 10*3/uL (0.11-0.8); Monocytes % 11.7 % (1.7-12.7); Neutrophils # 13.9 10*3/uL (1.4-7.4); Neutrophils % 73.3 % (38.7-73.9); Platelet Count 638 T/CUMM (130-400); Red Blood Count 3.05 MC/CUMM (3.8-5.5); Red Cell Distribution Width 16.1 % (9.3-17.3); White Blood Count 18.9 T/CUMM (4-12)
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
[2017-02-16 14:12] VITALS: BP 110/60
--- NOTE | 2017-02-16 14:46 | Infectious Disease Progress ---
Assessment and Plan (1) Gram-positive cocci bacteremia Status: Acute Assessment and plan: MSShominis septicemia, likely from his decubitus ulcers. Repeat blood cultures negative and patient overall seems better. Not sure why the acute leukocytosis today. Recommendations: Continue ceftriaxone - last day of Tx being February 21. 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 Current Visit: No Infectious Disease - PN: Subj Interval history: Patient spiked low-grade fever to 100.5 last night but he wants to go home today. Denies any other complaints, wounds look okay overall per wound care. Infectious Disease Exam (PN) - Constitutional Vitals: Temp Pulse Resp BP Pulse Ox 99 F 111 H 25 H 110/60 97 02/16/17 11:00 02/16/17 14:00 02/16/17 14:00 02/16/17 14:00 02/16/17 14:00 General appearance: under weight Exam: General appearance: Diaphoretic as usual but nontoxic-appearing - Eye Eye exam: Present: EOMI. no icterus Pupils: Present: ELINA - ENT ENT exam: no oral exudates -Lungs: clear -Cardiovascular: normal S1 and S2, no murmurs - GI/Abdominal GI/Abdominal exam: normal bowel sounds, soft, non-tender, no organomegaly or mass - Extremities Exam Extremities exam: no edema, wasted - Skin Skin exam: no rash Results - Labs CBC & BMP: 02/16/17 07:58 02/14/17 21:30 Lab Results: I have reviewed the past 24 hour labs
[2017-02-16] MEDS: SODIUM HYPOCHLORITE 0.25% IRRIG 473 ML BOTTLE TOP SCH (14:50)
== END 2017-02-16 16:31 | disposition home health service (06) | DRG 139 ==
LOC: EDUNIT# → EDBD → N.ED 22:28 → SUATTDRO 02-07 02:46 → N.EDINP 02-07 02:46 → SUATTDRO 02-07 02:47 → N.5E 02-07 03:20 → N.CC 02-14 18:33
PROVIDERS: ADMIT Internal Medicine; ATTEND Family Medicine

== ENCOUNTER 2017-03-31 16:33 | Inpatient (IN) ==
[2017-03-31] MEDS ORDERED: SODIUM CHLORIDE 0.9% 1,350 ML IV ONE (17:16)
--- NOTE | 2017-03-31 17:43 | XRay Report ---
XR chest 1V portable Indication: Fever. Comparison: Chest x-ray 02/13/2017. Technique: Portable AP chest was performed. Findings: Heart size is normal. Pulmonary vasculature appears within normal limits. No significant abnormality of the mediastinal contours demonstrated. Lungs are clear. Bones and soft tissues demonstrate no significant abnormalities. Impression: 1. No evidence of acute pathology. 03/31/2017 5:40 PM PROCEDURE INTERPRETED AT [facility] DEPARTMENT OF RADIOLOGY Final Report Signed by: Dr. Tk Feliz
[2017-03-31 18:02] LABS: Basophils % 0.1 % (0.0-0.8); Eosinophils % 0.1 % (0.00-10.9); Hematocrit 30.6 VOL% (42.0-52.0); Hemoglobin 9.8 GM/DL (14.0-18.0); Immature Granulocytes % 0.5 %; Immature Granulocytes Absolute 0.09 #; Lymphocytes # 2.1 10*3/uL (1.4-4.0); Mean Corpuscular Hemoglobin 25 PG (27-34); Mean Corpuscular Volume 78.5 FL (87-102); Mean Platelet Volume 9.7 FL (9.6-12.0); Monocytes # 1.3 10*3/uL (0.11-0.8); Monocytes % 6.9 % (1.7-12.7); Neutrophils # 15.7 10*3/uL (1.4-7.4); Neutrophils % 81.4 % (38.7-73.9); Platelet Count 964 T/CUMM (130-400); Red Cell Distribution Width 18.1 % (9.3-17.3); White Blood Count 19.3 T/CUMM (4-12)
[2017-03-31 18:32] LABS: Alanine Aminotransferase 12 U/L (16-61); Albumin 2.7 G/DL (3.4-5.0); Alkaline Phosphatase 109 U/L (45-117); Aspartate Amino Transferase 11 U/L (0-37); Bilirubin,Total < 0.39 MG/DL (0.2-1.0); Blood Urea Nitrogen 28 MG/DL (7-18); Calcium 9.7 MG/DL (8.5-10.1); Glucose 92 MG/DL (74-106); Osmolality,Calculated 284.4 MOS/KG (273-304); Potassium 4.3 MMOL/L (3.5-5.1); Sodium 140 MMOL/L (136-145); Total Protein 10.2 G/DL (6.4-8.3)
[2017-03-31 18:34] LABS: Lactic Acid 3.1 MMOL/L (0.4-2.0)
[2017-03-31] MEDS: VANCOMYCIN INJ 750 MG in SODIUM CHLORIDE 0.9% 250 ML IV SCH (18:50)
[2017-03-31 18:52] LABS: Bacteria,Urine Many /HPF (Few); Blood, Urine Trace mg/dL (Negative); Glucose,Urine (UA) Negative (Negative); Ketones,Urine Negative (Negative); Mucus,Urine Occasional /LPF (Occasional); Nitrite,Urine Negative (Negative); Protein,Urine 30 MG/DL; RBC,Urine 19 /HPF (0-4); Squamous Epithelial Cell,Urine Occasional /HPF (0-10); WBC,Urine 24 /HPF (0-6)
[2017-03-31 18:54] LABS: Apearance,Urine HAZY (Clear); Bilirubin,Urine Moderate mg/dL (Negative); Urine Color Yellow (Yellow)
[2017-03-31] MEDS ORDERED: LEVOFLOXACIN INJ 500 MG in PREMIX 1 EACH IV STA (19:30)
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
[2017-03-31] MEDS ORDERED: LEVOFLOXACIN INJ 100 ML IV ONE (20:21)
[2017-03-31] MEDS: SODIUM CHLORIDE 0.9% 1,000 ML IV SCH (22:01)
[2017-03-31] MEDS: PREGABALIN 100 MG CAPSULE PO SCH (23:20)
[2017-03-31] MEDS: ENOXAPARIN 40 MG/0.4 ML SYRINGE SUBCUT SCH (23:20)
[2017-03-31] MEDS: ALPRAZolam 0.5 MG TABLET PO SCH (23:20)
[2017-04-01] MEDS: SODIUM CHLORIDE 0.9% 1,000 ML IV SCH ×3 (03:47→13:37)
[2017-04-01 07:22] LABS: Lactic Acid 0.6 MMOL/L (0.4-2.0)
[2017-04-01 07:32] LABS: Calcium 8.6 MG/DL (8.5-10.1); Potassium 3.9 MMOL/L (3.5-5.1)
[2017-04-01 08:32] LABS: Basophils % 0.1 % (0.0-0.8); Eosinophils # 0.1 10*3/uL (0.0-0.87); Eosinophils % 0.7 % (0.00-10.9); Hemoglobin 8.5 GM/DL (14.0-18.0); Immature Granulocytes % 0.5 %; Immature Granulocytes Absolute 0.07 #; Lymphocytes # 2.3 10*3/uL (1.4-4.0); Lymphocytes % 17.3 % (21.2-54.2); Mean Corpuscular HGB Conc 31.5 GM/DL (32-36); Mean Corpuscular Hemoglobin 25 PG (27-34); Mean Corpuscular Volume 78.3 FL (87-102); Mean Platelet Volume 9.5 FL (9.6-12.0); Monocytes % 7.2 % (1.7-12.7); Neutrophils # 9.9 10*3/uL (1.4-7.4); Neutrophils % 74.2 % (38.7-73.9); Platelet Count 735 T/CUMM (130-400); Red Blood Count 3.45 MC/CUMM (3.8-5.5); White Blood Count 13.4 T/CUMM (4-12)
[2017-04-01] MEDS: VANCOMYCIN INJ 750 MG in SODIUM CHLORIDE 0.9% 250 ML IV SCH ×2 (09:33→19:45)
[2017-04-01] MEDS: PREGABALIN 100 MG CAPSULE PO SCH ×3 (09:34→20:55)
[2017-04-01] MEDS: PANTOPRAZOLE 40 MG TABLET PO SCH (09:34)
[2017-04-01] MEDS: CITALOPRAM 20 MG TABLET PO SCH (09:34)
[2017-04-01] MEDS: ALPRAZolam 0.5 MG TABLET PO SCH ×2 (09:34→20:55)
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
[2017-04-01] MEDS: SKIN HEALING OINT (AQUAPHOR) 50 GM TUBE TOP SCH (14:20)
[2017-04-01] MEDS: COLLAGENASE OINT 30 GM TUBE TOP SCH (14:20)
[2017-04-01] MEDS: SODIUM HYPOCHLORITE 0.25% IRRIG 473 ML BOTTLE TOP SCH (14:20)
[2017-04-01] MEDS ORDERED: LEVOFLOXACIN INJ 500 MG in PREMIX 1 EACH IV SCH (20:30)
[2017-04-01] MEDS: ENOXAPARIN 40 MG/0.4 ML SYRINGE SUBCUT SCH (20:54)
[2017-04-01] MEDS: ZALEPLON 5 MG CAPSULE PO PRN (23:23)
[2017-04-02] MEDS: SODIUM CHLORIDE 0.9% 1,000 ML IV SCH ×3 (00:32→20:17)
[2017-04-02] MEDS: ALPRAZolam 0.5 MG TABLET PO SCH ×2 (09:38→20:08)
[2017-04-02] MEDS: CITALOPRAM 20 MG TABLET PO SCH (09:38)
[2017-04-02] MEDS: PANTOPRAZOLE 40 MG TABLET PO SCH (09:38)
[2017-04-02] MEDS: SODIUM HYPOCHLORITE 0.25% IRRIG 473 ML BOTTLE TOP SCH (09:39)
[2017-04-02] MEDS: COLLAGENASE OINT 30 GM TUBE TOP SCH (09:39)
[2017-04-02] MEDS: SKIN HEALING OINT (AQUAPHOR) 50 GM TUBE TOP SCH (09:39)
[2017-04-02] MEDS: VANCOMYCIN INJ 750 MG in SODIUM CHLORIDE 0.9% 250 ML IV SCH ×2 (10:05→20:18)
[2017-04-02] MEDS: PREGABALIN 100 MG CAPSULE PO SCH ×3 (10:18→20:08)
[2017-04-02] MEDS: MEROPENEM 500 MG in SODIUM CHLORIDE 0.9% 100 ML IV SCH ×2 (13:35→20:18)
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
--- NOTE | 2017-04-02 19:19 | Event Note ---
Called by nursing staff to speak to patient. Pt was using very abusive and offensive language towards staff. Pt. wanted to leave and had pulled out IV. Pt. was instructed it was against medical advice to leave. Pt. reminded of importance of speaking respectfully to staff. Pt. calmed down briefly. Refuses to have IV restarted. Nursing staff alerted security to speak to patient. Will follow up.
[2017-04-02] MEDS: ENOXAPARIN 40 MG/0.4 ML SYRINGE SUBCUT SCH (20:08)
[2017-04-03] MEDS: MEROPENEM 500 MG in SODIUM CHLORIDE 0.9% 100 ML IV SCH (04:11)
[2017-04-03] MEDS: SODIUM CHLORIDE 0.9% 1,000 ML IV SCH ×2 (06:31→15:21)
[2017-04-03] MEDS: VANCOMYCIN INJ 750 MG in SODIUM CHLORIDE 0.9% 250 ML IV SCH (10:52)
[2017-04-03] MEDS: CITALOPRAM 20 MG TABLET PO SCH ×2 (10:53→12:13)
[2017-04-03] MEDS: PANTOPRAZOLE 40 MG TABLET PO SCH ×2 (10:53→12:13)
[2017-04-03] MEDS: PREGABALIN 100 MG CAPSULE PO SCH ×4 (10:53→23:29)
[2017-04-03] MEDS: SKIN HEALING OINT (AQUAPHOR) 50 GM TUBE TOP SCH (10:53)
[2017-04-03] MEDS: SODIUM HYPOCHLORITE 0.25% IRRIG 473 ML BOTTLE TOP SCH (10:53)
[2017-04-03] MEDS: ALPRAZolam 0.5 MG TABLET PO SCH ×3 (10:54→23:29)
[2017-04-03] MEDS: COLLAGENASE OINT 30 GM TUBE TOP SCH (10:54)
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
--- NOTE | 2017-04-03 15:01 | ECHO Report ---
Rick Landon Exam Date: 04/03/2017 13:44 Referring Physician: Technologist: Karlie Carpenter Age: 27 Ht (in): 67 Wt (lb): 105 Gender: M Exam Location: [facility] Echo Indications: sepsis, staph bacteremia BP: 147 / 108 HR: 88 Rhythm: sinus tachycardia Technical Quality: Technically difficult study IMPRESSIONS Technically difficult study. Left ventricular ejection fraction is estimated at 55-60 %. Mildly thickened mitral valve. MEASUREMENTS (Male / Female) Normal Values 2D ECHO LV Diastolic Diameter PLAX 3.6 cm 4.2 - 5.9 / 3.9 - 5.3 cm LV Systolic Diameter PLAX 2.8 cm LV Fractional Shortening PLAX 23.0 % IVS Diastolic Thickness 0.8 cm 0.6 - 1.0 / 0.6 - 0.9 cm LVPW Diastolic Thickness 0.8 cm 0.6 - 1.0 / 0.6 - 0.9 cm Aortic Root Diameter 2.0 cm LA Systolic Diameter LX 2.3 cm 3.0 - 4.0 / 2.7 - 3.8 cm DOPPLER TR Peak Velocity 185.0 cm/s TR Peak Gradient 13.7 mmHg FINDINGS Left Ventricle Normal left ventricular cavity size. Left ventricular ejection fraction is estimated at 55-60 %. Right Ventricle Normal right ventricular size. Right Atrium Normal right atrial size. Left Atrium Normal left atrial size. Mitral Valve Mildly thickened mitral valve. Aortic Valve Grossly normal, but poorly visualized aortic valve. Tricuspid Valve Morphologically normal tricuspid valve. Pulmonic Valve Morphologically normal pulmonic valve. Pericardium No pericardial effusion. Aorta Normal size aortic root and proximal ascending aorta. Chandler Brambila (Electronically Signed) Final Date: 03 April 2017 14:59
[2017-04-03] MEDS: ERTAPENEM 1,000 MG VIAL IM SCH (15:52)
[2017-04-03] MEDS: CLINDAMYCIN 300 MG CAPSULE PO SCH ×2 (15:53→23:29)
[2017-04-03] MEDS: ENOXAPARIN 40 MG/0.4 ML SYRINGE SUBCUT SCH (23:29)
[2017-04-04] MEDS: CLINDAMYCIN 300 MG CAPSULE PO SCH ×4 (00:36→21:22)
[2017-04-04] MEDS: PREGABALIN 100 MG CAPSULE PO SCH ×4 (00:36→21:23)
[2017-04-04] MEDS: ALPRAZolam 0.5 MG TABLET PO SCH ×3 (00:36→21:22)
[2017-04-04] MEDS: ENOXAPARIN 40 MG/0.4 ML SYRINGE SUBCUT SCH ×2 (00:36→21:23)
[2017-04-04] MEDS: ZALEPLON 5 MG CAPSULE PO PRN ×2 (00:37→21:22)
[2017-04-04] MEDS: SODIUM CHLORIDE 0.9% 1,000 ML IV SCH ×3 (00:41→21:37)
[2017-04-04] MEDS: COLLAGENASE OINT 30 GM TUBE TOP SCH (08:55)
[2017-04-04] MEDS: PANTOPRAZOLE 40 MG TABLET PO SCH (08:55)
[2017-04-04] MEDS: SKIN HEALING OINT (AQUAPHOR) 50 GM TUBE TOP SCH (08:55)
[2017-04-04] MEDS: SODIUM HYPOCHLORITE 0.25% IRRIG 473 ML BOTTLE TOP SCH (08:55)
[2017-04-04] MEDS: CITALOPRAM 20 MG TABLET PO SCH (08:55)
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
[2017-04-04] MEDS: ERTAPENEM 1,000 MG VIAL IM SCH (16:50)
[2017-04-05 03:25] LABS: Basophils % 0.3 % (0.0-0.8); Eosinophils # 0.3 10*3/uL (0.0-0.87); Eosinophils % 2.8 % (0.00-10.9); Hematocrit 26.4 VOL% (42.0-52.0); Hemoglobin 8.2 GM/DL (14.0-18.0); Immature Granulocytes % 0.3 %; Immature Granulocytes Absolute 0.03 #; Lymphocytes % 30.3 % (21.2-54.2); Mean Corpuscular HGB Conc 31.1 GM/DL (32-36); Mean Corpuscular Hemoglobin 24 PG (27-34); Mean Corpuscular Volume 77.9 FL (87-102); Mean Platelet Volume 9.9 FL (9.6-12.0); Monocytes # 0.8 10*3/uL (0.11-0.8); Monocytes % 8.2 % (1.7-12.7); Neutrophils # 5.8 10*3/uL (1.4-7.4); Neutrophils % 58.1 % (38.7-73.9); Platelet Count 729 T/CUMM (130-400); Red Blood Count 3.39 MC/CUMM (3.8-5.5); Red Cell Distribution Width 18.2 % (9.3-17.3)
[2017-04-05 03:55] LABS: Calcium 8.9 MG/DL (8.5-10.1); Potassium 4.9 MMOL/L (3.5-5.1)
[2017-04-05] MEDS: CLINDAMYCIN 300 MG CAPSULE PO SCH ×2 (06:51→15:10)
[2017-04-05] MEDS: ALPRAZolam 0.5 MG TABLET PO SCH (08:35)
[2017-04-05] MEDS: CITALOPRAM 20 MG TABLET PO SCH (08:35)
[2017-04-05] MEDS: PREGABALIN 100 MG CAPSULE PO SCH (08:35)
[2017-04-05] MEDS: PANTOPRAZOLE 40 MG TABLET PO SCH (08:35)
[2017-04-05] MEDS: SODIUM CHLORIDE 0.9% 1,000 ML IV SCH (08:36)
[2017-04-05] MEDS: SODIUM HYPOCHLORITE 0.25% IRRIG 473 ML BOTTLE TOP SCH (08:54)
[2017-04-05] MEDS: COLLAGENASE OINT 30 GM TUBE TOP SCH (08:54)
[2017-04-05] MEDS: SKIN HEALING OINT (AQUAPHOR) 50 GM TUBE TOP SCH (08:54)
[2017-04-05 12:30] VITALS: BP 100/65
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
[2017-04-05] MEDS: ERTAPENEM 1,000 MG VIAL IM SCH (14:17)
[2017-04-05] MEDS ORDERED: NITROFURANTOIN MACRO/MONO 100 MG CAPSULE PO SCH (21:00)
== END 2017-04-05 15:20 | disposition home health service (06) | DRG 720 ==
LOC: EDUNIT# → EDBD → N.ED 16:33 → N.EDINP 20:04 → SUATTDRO 20:04 → N.5E 21:00
PROVIDERS: ADMIT Internal Medicine; ATTEND Hospitalist

== ENCOUNTER 2017-05-16 03:07 | Inpatient (IN) ==
[2017-05-16 05:03] LABS: Basophils % 0.3 % (0.0-0.8); Eosinophils # 0.1 10*3/uL (0.0-0.87); Eosinophils % 0.8 % (0.00-10.9); Hematocrit 27.4 VOL% (42.0-52.0); Hemoglobin 8.8 GM/DL (14.0-18.0); Immature Granulocytes % 0.6 %; Immature Granulocytes Absolute 0.07 #; Lymphocytes # 2.9 10*3/uL (1.4-4.0); Lymphocytes % 22.9 % (21.2-54.2); Mean Corpuscular HGB Conc 32.1 GM/DL (32-36); Mean Corpuscular Hemoglobin 24 PG (27-34); Mean Corpuscular Volume 75.5 FL (87-102); Mean Platelet Volume 10.9 FL (9.6-12.0); Monocytes # 1.3 10*3/uL (0.11-0.8); Monocytes % 10.2 % (1.7-12.7); Neutrophils # 8.2 10*3/uL (1.4-7.4); Neutrophils % 65.2 % (38.7-73.9); Platelet Count 444 T/CUMM (130-400); Red Blood Count 3.63 MC/CUMM (3.8-5.5); Red Cell Distribution Width 17.8 % (9.3-17.3); White Blood Count 12.6 T/CUMM (4-12)
[2017-05-16 05:07] LABS: Alanine Aminotransferase < 9 U/L (16-61); Albumin 2.1 G/DL (3.4-5.0); Alkaline Phosphatase 69 U/L (45-117); Aspartate Amino Transferase 13 U/L (0-37); Bilirubin,Total < 0.39 MG/DL (0.2-1.0); Blood Urea Nitrogen 14 MG/DL (7-18); Calcium 8.5 MG/DL (8.5-10.1); Glucose 130 MG/DL (74-106); Osmolality,Calculated 272.1 MOS/KG (273-304); Potassium 2.8 MMOL/L (3.5-5.1); Sodium 135 MMOL/L (136-145); Total Protein 8.8 G/DL (6.4-8.3)
[2017-05-16] MEDS ORDERED: SODIUM CHLORIDE 0.9% 2,000 ML IV STA (05:07)
[2017-05-16] MEDS ORDERED: MEROPENEM 1,000 MG in SODIUM CHLORIDE 0.9% 100 ML IV STA (05:07)
[2017-05-16] MEDS ORDERED: VANCOMYCIN INJ 1,000 MG in SODIUM CHLORIDE 0.9% 250 ML IV STA (05:08)
[2017-05-16] MEDS ORDERED: SODIUM CHLORIDE 0.9% 100 ML IV ONE (05:31)
[2017-05-16] MEDS ORDERED: MEROPENEM 1,000 MG VIAL IV ONE (05:31)
[2017-05-16] MEDS ORDERED: VANCOMYCIN 1,000 MG VIAL ONE (05:31)
[2017-05-16 05:41] LABS: Apearance,Urine Slightly Hazy (Clear); Bacteria,Urine Many /HPF (Few); Bilirubin,Urine Negative (Negative); Blood, Urine Large mg/dL (Negative); Glucose,Urine (UA) Negative (Negative); Ketones,Urine Negative (Negative); Mucus,Urine Occasional /LPF (Occasional); Nitrite,Urine Positive (Negative); Protein,Urine Negative; RBC,Urine 51 /HPF (0-4); Squamous Epithelial Cell,Urine Occasional /HPF (0-10); Urine Color Yellow (Yellow); Urine Specific Gravity 1.005 (1.001-1.035); Urine Urobilinogen < 2.0 EU/DL (0.2-1.0); WBC,Urine 12 /HPF (0-6)
[2017-05-16] MEDS ORDERED: ONDANSETRON 4 MG/2 ML VIAL IV PRN ×2 (06:44→11:22)
[2017-05-16] MEDS ORDERED: ACETAMINOPHEN 325 MG TABLET PO PRN (06:44)
[2017-05-16] MEDS ORDERED: POTASSIUM CHLORIDE 20 MEQ TABLET PO PRN ×3 (07:05→20:28)
[2017-05-16 08:45] LABS: Barbiturates Screen,Urine Negative (Negative); Benzodiazepines Screen,Urine Negative (Negative); Cannabinoid Screen,Urine Positive (Negative); Opiate Screen,Urine Negative (Negative); Phencyclidine Screen,Urine Negative (Negative)
[2017-05-16] MEDS: ENOXAPARIN 40 MG/0.4 ML SYRINGE SUBCUT SCH (08:54)
[2017-05-16] MEDS: SODIUM CHLORIDE 0.9% 1,000 ML IV SCH ×3 (08:56→20:04)
[2017-05-16] MEDS ORDERED: POTASSIUM CHLORIDE 20 MEQ TABLET PO ONE (09:38)
[2017-05-16] MEDS ORDERED: SODIUM CHLORIDE 0.9% 1,000 ML IV ONE (11:22)
[2017-05-16] MEDS ORDERED: POTASSIUM CHLORIDE 20 MEQ TABLET PO SCH (12:00)
[2017-05-16] MEDS: MEROPENEM 1,000 MG in SODIUM CHLORIDE 0.9% 50 ML IV SCH (14:18)
[2017-05-16] MEDS: POTASSIUM CHLORIDE RIDER 10 MEQ in PREMIX 1 EACH IV SCH ×4 (15:04→20:04)
[2017-05-16] MEDS: VANCOMYCIN INJ 750 MG in SODIUM CHLORIDE 0.9% 250 ML IV SCH (15:04)
[2017-05-17] MEDS: MEROPENEM 1,000 MG in SODIUM CHLORIDE 0.9% 50 ML IV SCH ×5 (01:25→21:07)
[2017-05-17 05:18] LABS: Basophils % 0.2 % (0.0-0.8); Eosinophils # 0.1 10*3/uL (0.0-0.87); Eosinophils % 0.4 % (0.00-10.9); Hematocrit 29.5 VOL% (42.0-52.0); Hemoglobin 9.2 GM/DL (14.0-18.0); Immature Granulocytes % 0.8 %; Immature Granulocytes Absolute 0.18 #; Lymphocytes # 1.4 10*3/uL (1.4-4.0); Lymphocytes % 6.1 % (21.2-54.2); Mean Corpuscular HGB Conc 31.2 GM/DL (32-36); Mean Corpuscular Hemoglobin 24 PG (27-34); Mean Corpuscular Volume 75.6 FL (87-102); Mean Platelet Volume 9.9 FL (9.6-12.0); Monocytes # 1.2 10*3/uL (0.11-0.8); Monocytes % 5.2 % (1.7-12.7); Neutrophils # 19.6 10*3/uL (1.4-7.4); Neutrophils % 87.3 % (38.7-73.9); Platelet Count 469 T/CUMM (130-400); Red Cell Distribution Width 17.4 % (9.3-17.3); White Blood Count 22.5 T/CUMM (4-12)
[2017-05-17 05:35] LABS: Calcium 8.6 MG/DL (8.5-10.1); Osmolality,Calculated 273.5 MOS/KG (273-304); Potassium 4.1 MMOL/L (3.5-5.1)
[2017-05-17 05:36] LABS: Giant Platelets Few; Hypochromasia 1+; Lymphocytes 7 % (20-55); Platelet Estimate Adequate; Segmented Neutrophils 90 % (50-85); Total Cells Counted 100
[2017-05-17 05:37] LABS: Microcytosis Slight
[2017-05-17] MEDS: VANCOMYCIN INJ 750 MG in SODIUM CHLORIDE 0.9% 250 ML IV SCH ×4 (05:37→23:54)
[2017-05-17] MEDS: ENOXAPARIN 40 MG/0.4 ML SYRINGE SUBCUT SCH (06:53)
[2017-05-17] MEDS: POTASSIUM CHLORIDE RIDER 10 MEQ in PREMIX 1 EACH IV SCH ×2 (08:21→08:22)
[2017-05-17] MEDS: SODIUM CHLORIDE 0.9% 1,000 ML IV SCH (08:22)
[2017-05-17] MEDS: BACITRACIN OINT 0.9 GM PACK TOP SCH (17:04)
[2017-05-17] MEDS: SODIUM HYPOCHLORITE 0.25% IRRIG 473 ML BOTTLE TOP SCH (17:04)
[2017-05-17] MEDS: ALPRAZolam 0.5 MG TABLET PO SCH (21:06)
[2017-05-17] MEDS: ZALEPLON 5 MG CAPSULE PO PRN (21:06)
[2017-05-17] MEDS: PREGABALIN 100 MG CAPSULE PO SCH (21:07)
[2017-05-18] MEDS: MEROPENEM 1,000 MG in SODIUM CHLORIDE 0.9% 50 ML IV SCH ×3 (05:30→21:21)
[2017-05-18] MEDS: VANCOMYCIN INJ 750 MG in SODIUM CHLORIDE 0.9% 250 ML IV SCH ×3 (06:30→22:41)
[2017-05-18] MEDS: PREGABALIN 100 MG CAPSULE PO SCH ×3 (09:04→21:10)
[2017-05-18] MEDS: ALPRAZolam 0.5 MG TABLET PO SCH ×2 (09:05→21:10)
[2017-05-18] MEDS: PANTOPRAZOLE 40 MG TABLET PO SCH (09:05)
[2017-05-18] MEDS: CITALOPRAM 20 MG TABLET PO SCH (09:06)
[2017-05-18] MEDS: ENOXAPARIN 40 MG/0.4 ML SYRINGE SUBCUT SCH (10:48)
[2017-05-18] MEDS: BACITRACIN OINT 0.9 GM PACK TOP SCH (19:19)
[2017-05-18] MEDS: SODIUM HYPOCHLORITE 0.25% IRRIG 473 ML BOTTLE TOP SCH (19:20)
[2017-05-18] MEDS: ZALEPLON 5 MG CAPSULE PO PRN (21:09)
[2017-05-19] MEDS: MEROPENEM 1,000 MG in SODIUM CHLORIDE 0.9% 50 ML IV SCH ×2 (05:33→14:07)
[2017-05-19] MEDS: VANCOMYCIN INJ 750 MG in SODIUM CHLORIDE 0.9% 250 ML IV SCH ×2 (06:01→15:25)
[2017-05-19] MEDS: SODIUM HYPOCHLORITE 0.25% IRRIG 473 ML BOTTLE TOP SCH (07:45)
[2017-05-19] MEDS: BACITRACIN OINT 0.9 GM PACK TOP SCH (09:28)
[2017-05-19] MEDS: PANTOPRAZOLE 40 MG TABLET PO SCH (09:28)
[2017-05-19] MEDS: ALPRAZolam 0.5 MG TABLET PO SCH (09:28)
[2017-05-19] MEDS: PREGABALIN 100 MG CAPSULE PO SCH ×2 (09:28→15:25)
[2017-05-19] MEDS: CITALOPRAM 20 MG TABLET PO SCH (09:28)
[2017-05-19] MEDS: ENOXAPARIN 40 MG/0.4 ML SYRINGE SUBCUT SCH (09:29)
[2017-05-19 16:44] VITALS: BP 144/80
== END 2017-05-19 17:05 | disposition home or self-care (01) | DRG 720 ==
LOC: EDUNIT# → N.ED 03:07 → N.3E 06:41 → SUATTDRO 06:41 → N.3E 07:35
PROVIDERS: ADMIT Internal Medicine; ATTEND Internal Medicine Geriatric Medicine

== ENCOUNTER 2017-08-03 20:10 | Observation (INO) ==
[2017-08-03] MEDS ORDERED: methylPREDNISolone SOD SUC 125 MG/2 ML VIAL IV STA (21:24)
[2017-08-03] MEDS ORDERED: ONDANSETRON 4 MG/2 ML VIAL IV STA (21:24)
[2017-08-03] MEDS ORDERED: ALBUTEROL/IPRATROPIUM 3 ML NEB RESP TX STA (21:24)
[2017-08-03] MEDS ORDERED: SODIUM CHLORIDE 0.9% 1,000 ML IV STA (21:24)
[2017-08-03] MEDS ORDERED: cefTRIAXone 1,000 MG in SODIUM CHLORIDE 0.9% 100 ML IV STA (21:24)
[2017-08-03 21:34] LABS: Basophils % 0.2 % (0.0-0.8); Eosinophils # 0.1 10*3/uL (0.0-0.87); Eosinophils % 0.6 % (0.00-10.9); Hematocrit 38.2 VOL% (42.0-52.0); Hemoglobin 11.7 GM/DL (14.0-18.0); Immature Granulocytes % 0.4 %; Immature Granulocytes Absolute 0.04 #; Lymphocytes # 1.5 10*3/uL (1.4-4.0); Lymphocytes % 13.6 % (21.2-54.2); Mean Corpuscular HGB Conc 30.6 GM/DL (32-36); Mean Corpuscular Hemoglobin 23 PG (27-34); Mean Corpuscular Volume 75.5 FL (87-102); Mean Platelet Volume 10.1 FL (9.6-12.0); Monocytes # 0.8 10*3/uL (0.11-0.8); Monocytes % 7.3 % (1.7-12.7); Neutrophils # 8.7 10*3/uL (1.4-7.4); Neutrophils % 77.9 % (38.7-73.9); Platelet Count 640 T/CUMM (130-400); Red Blood Count 5.06 MC/CUMM (3.8-5.5); Red Cell Distribution Width 21.5 % (9.3-17.3); White Blood Count 11.2 T/CUMM (4-12)
[2017-08-03 21:40] LABS: PT Patient Result 10.6 SECS
[2017-08-03] MEDS ORDERED: cefTRIAXone 1,000 MG VIAL ONE (21:45)
[2017-08-03] MEDS ORDERED: methylPREDNISolone SOD SUC 125 MG/2 ML VIAL ONE (21:46)
[2017-08-03] MEDS ORDERED: ONDANSETRON 4 MG/2 ML VIAL ONE (21:46)
[2017-08-03] MEDS ORDERED: SODIUM CHLORIDE 0.9% 100 ML IV ONE (21:46)
[2017-08-03 21:49] LABS: Alanine Aminotransferase 11 U/L (16-61); Albumin 3.2 G/DL (3.4-5.0); Alkaline Phosphatase 84 U/L (45-117); Aspartate Amino Transferase 17 U/L (0-37); Bilirubin,Total < 0.39 MG/DL (0.2-1.0); Blood Urea Nitrogen 18 MG/DL (7-18); Calcium 8.9 MG/DL (8.5-10.1); Glucose 81 MG/DL (74-106); Lactic Acid 2.5 MMOL/L (0.4-2.0); Osmolality,Calculated 277.5 MOS/KG (273-304); Potassium 4.3 MMOL/L (3.5-5.1); Sodium 139 MMOL/L (136-145); Total Protein 10.6 G/DL (6.4-8.3); Troponin I Only < 0.015 NG/ML (0.00-0.045)
[2017-08-03 22:11] LABS: Allen Test Positive
[2017-08-03 22:12] LABS: ABG Base Excess 2.5 MMOL/L (-2.5-2.5); ABG HCO3 26.1 MMOL/L (20-26); ABG Oxygen Saturation 92.9 % (95-100); ABG PCO2 36.9 MM HG (35-48); ABG PH 7.468 (7.35-7.45); ABG PO2 64.2 MM HG (80-95); ABG TCO2 27.3 MMOL/L (23-27)
[2017-08-03] MEDS ORDERED: SODIUM CHLORIDE 0.9% 1,450 ML IV ONE (22:32)
[2017-08-03] MEDS ORDERED: SODIUM CHLORIDE 0.9% 1,000 ML IV SCH (23:00)
[2017-08-03] MEDS ORDERED: PIPERACILLIN/TAZOBACTAM 3,375 MG in SODIUM CHLORIDE 0.9% 100 ML IV SCH (23:00)
[2017-08-03 23:13] LABS: PT Patient Result 10.5 SECS; Partial Thromboplastin Time 31.7 SECS (0-40)
[2017-08-03] MEDS ORDERED: MORPHINE 2 MG/1 ML SYRINGE IV STA ×2 (23:49)
[2017-08-04] MEDS ORDERED: MORPHINE 2 MG/1 ML SYRINGE ONE
[2017-08-04] MEDS ORDERED: ONDANSETRON 4 MG/2 ML VIAL IV PRN (01:11)
[2017-08-04] MEDS ORDERED: ZOLPIDEM 5 MG TABLET PO PRN (01:16)
[2017-08-04] MEDS ORDERED: ONDANSETRON 8 MG PO PRN (01:16)
[2017-08-04] MEDS: ALBUTEROL/IPRATROPIUM 3 ML NEB RESP TX SCH ×4 (02:06→20:54)
[2017-08-04] MEDS ORDERED: PIPERACILLIN/TAZOBACTAM 3,375 MG in SODIUM CHLORIDE 0.9% 100 ML IV SCH (04:00)
[2017-08-04] MEDS: ENOXAPARIN 40 MG/0.4 ML SYRINGE SUBCUT SCH (05:43)
[2017-08-04 06:39] LABS: Hematocrit 27.1 VOL% (42.0-52.0); Hemoglobin 8.5 GM/DL (14.0-18.0); Immature Granulocytes % 0.4 %; Immature Granulocytes Absolute 0.05 #; Lymphocytes # 0.3 10*3/uL (1.4-4.0); Lymphocytes % 2.8 % (21.2-54.2); Mean Corpuscular HGB Conc 31.4 GM/DL (32-36); Mean Corpuscular Hemoglobin 23 PG (27-34); Mean Corpuscular Volume 74.2 FL (87-102); Mean Platelet Volume 10.3 FL (9.6-12.0); Monocytes # 0.1 10*3/uL (0.11-0.8); Monocytes % 0.6 % (1.7-12.7); Neutrophils # 11.4 10*3/uL (1.4-7.4); Neutrophils % 96.2 % (38.7-73.9); Platelet Count 429 T/CUMM (130-400); Red Blood Count 3.65 MC/CUMM (3.8-5.5); Red Cell Distribution Width 20.5 % (9.3-17.3); White Blood Count 11.9 T/CUMM (4-12)
[2017-08-04 07:07] LABS: Alanine Aminotransferase < 9 U/L (16-61); Albumin 2.2 G/DL (3.4-5.0); Alkaline Phosphatase 60 U/L (45-117); Aspartate Amino Transferase 12 U/L (0-37); Bilirubin,Total < 0.39 MG/DL (0.2-1.0); Blood Urea Nitrogen 13 MG/DL (7-18); Calcium 7.8 MG/DL (8.5-10.1); Glucose 157 MG/DL (74-106); Osmolality,Calculated 281.4 MOS/KG (273-304); Potassium 4.1 MMOL/L (3.5-5.1); Sodium 140 MMOL/L (136-145); Total Protein 7.6 G/DL (6.4-8.3)
[2017-08-04 07:18] LABS: Band Neutrophils 1 % (0-10); Hypochromasia 1+; Lymphocytes 1 % (20-55); Microcytosis Slight; Platelet Estimate Adequate; Segmented Neutrophils 97 % (50-85); Total Cells Counted 100
[2017-08-04 07:21] LABS: Lactic Acid 2.2 MMOL/L (0.4-2.0)
[2017-08-04] MEDS ORDERED: ZALEPLON 5 MG CAPSULE PO PRN (07:30)
[2017-08-04] MEDS: BACLOFEN 10 MG TABLET PO SCH ×3 (09:10→21:43)
[2017-08-04] MEDS: ALPRAZolam 0.5 MG TABLET PO SCH ×2 (09:10→21:42)
[2017-08-04] MEDS: guaiFENesin/DM ER 600-30 MG TABLET PO SCH ×2 (09:11→21:44)
[2017-08-04] MEDS: CITALOPRAM 20 MG TABLET PO SCH (09:11)
[2017-08-04] MEDS: PREGABALIN 100 MG CAPSULE PO SCH ×3 (09:11→21:44)
[2017-08-04] MEDS ORDERED: methylPREDNISolone 4 MG TABLET PO SCH (10:00)
[2017-08-04] MEDS: AMOXICILLIN/CLAV 875 MG TABLET PO SCH ×2 (11:26→21:43)
[2017-08-04] MEDS: methylPREDNISolone 4 MG TABLET PO SCH ×4 (15:55→21:43)
[2017-08-04] MEDS: BACITRACIN OINT 0.9 GM PACK TOP SCH (16:45)
[2017-08-04] MEDS ORDERED: cefTRIAXone 1,000 MG in SYRINGE 1 EACH IV SCH (21:00)
[2017-08-04] MEDS ORDERED: PANTOPRAZOLE 40 MG TABLET PO SCH (21:00)
[2017-08-05] MEDS: ALBUTEROL/IPRATROPIUM 3 ML NEB RESP TX SCH ×3 (00:45→15:19)
[2017-08-05] MEDS: ENOXAPARIN 40 MG/0.4 ML SYRINGE SUBCUT SCH (06:46)
[2017-08-05 08:21] VITALS: BP 139/75
[2017-08-05] MEDS: BACLOFEN 10 MG TABLET PO SCH ×2 (10:45→17:37)
[2017-08-05] MEDS: guaiFENesin/DM ER 600-30 MG TABLET PO SCH (10:45)
[2017-08-05] MEDS: ALPRAZolam 0.5 MG TABLET PO SCH (10:45)
[2017-08-05] MEDS: methylPREDNISolone 4 MG TABLET PO SCH ×2 (10:45→12:29)
[2017-08-05] MEDS: AMOXICILLIN/CLAV 875 MG TABLET PO SCH (10:45)
[2017-08-05] MEDS: CITALOPRAM 20 MG TABLET PO SCH (10:45)
[2017-08-05] MEDS: PREGABALIN 100 MG CAPSULE PO SCH ×2 (10:45→17:37)
[2017-08-05] MEDS: BACITRACIN OINT 0.9 GM PACK TOP SCH (11:02)
== END 2017-08-05 18:30 | disposition home or self-care (01) ==
LOC: EDUNIT# → EDBD → N.ED 20:10 → INTOOBSV 08-04 01:07 → N.EDINP 08-04 01:07 → N.2E 08-04 02:15 → UNDODISOB 08-05 18:30 → N.2E 08-05 20:10
PROVIDERS: ADMIT Family Medicine; ATTEND Family Medicine

== ENCOUNTER 2017-10-15 12:13 | Inpatient (IN) ==
[2017-10-15] MEDS ORDERED: ALBUTEROL/IPRATROPIUM 3 ML NEB RESP TX STA (12:45)
[2017-10-15] MEDS ORDERED: SODIUM CHLORIDE 0.9% 1,000 ML IV STA (12:45)
[2017-10-15] MEDS ORDERED: ACETAMINOPHEN 500 MG TABLET PO STA (12:45)
[2017-10-15] MEDS ORDERED: cefTRIAXone 1,000 MG in SODIUM CHLORIDE 0.9% 100 ML IV STA (12:45)
[2017-10-15] MEDS ORDERED: ACETAMINOPHEN 500 MG TABLET ONE (12:49)
[2017-10-15 13:34] LABS: Basophils % 0.1 % (0.0-0.8); Hematocrit 26.4 VOL% (42.0-52.0); Hemoglobin 8.7 GM/DL (14.0-18.0); Immature Granulocytes % 0.5 %; Immature Granulocytes Absolute 0.08 #; Lymphocytes # 1.6 10*3/uL (1.4-4.0); Lymphocytes % 9.1 % (21.2-54.2); Mean Corpuscular Hemoglobin 24 PG (27-34); Mean Corpuscular Volume 73.9 FL (87-102); Mean Platelet Volume 10.8 FL (9.6-12.0); Monocytes # 1.8 10*3/uL (0.11-0.8); Monocytes % 10.1 % (1.7-12.7); Neutrophils # 14.3 10*3/uL (1.4-7.4); Neutrophils % 80.2 % (38.7-73.9); Platelet Count 323 T/CUMM (130-400); Red Blood Count 3.57 MC/CUMM (3.8-5.5); Red Cell Distribution Width 18.2 % (9.3-17.3); White Blood Count 17.8 T/CUMM (4-12)
[2017-10-15] MEDS ORDERED: cefTRIAXone 1,000 MG VIAL ONE (13:39)
[2017-10-15 14:00] LABS: Lactic Acid 2.4 MMOL/L (0.4-2.0)
[2017-10-15 14:02] LABS: Alanine Aminotransferase 11 U/L (16-61); Albumin 1.9 G/DL (3.4-5.0); Alkaline Phosphatase 62 U/L (45-117); Amylase 16 U/L (25-115); Aspartate Amino Transferase 11 U/L (0-37); Blood Urea Nitrogen 8 MG/DL (7-18); Calcium 7.7 MG/DL (8.5-10.1); Glucose 108 MG/DL (74-106); Osmolality,Calculated 273.7 MOS/KG (273-304); Potassium 3.2 MMOL/L (3.5-5.1); Sodium 138 MMOL/L (136-145); Total Protein 6.5 G/DL (6.4-8.3)
[2017-10-15] MEDS ORDERED: SODIUM CHLORIDE 0.9% 1,800 ML IV ONE (14:03)
[2017-10-15] MEDS ORDERED: POTASSIUM CHLORIDE 20 MEQ TABLET PO STA (14:05)
[2017-10-15] MEDS ORDERED: POTASSIUM CHLORIDE 20 MEQ TABLET PO ONE (14:13)
[2017-10-15] MEDS: SODIUM CHLORIDE 0.9% 1,000 ML IV SCH (14:20)
[2017-10-15] MEDS ORDERED: ACETAMINOP PO PRN (15:36)
[2017-10-15] MEDS ORDERED: ONDANSETRON 4 MG/2 ML VIAL IV PRN (15:36)
[2017-10-15] MEDS ORDERED: PHENYLEPHRINE PO PRN (15:36)
[2017-10-15] MEDS ORDERED: NAPROXEN 500 MG TABLET PO PRN (15:36)
[2017-10-15] MEDS ORDERED: [UNRECOGNIZED DRUG - OTHER] PO PRN (15:36)
[2017-10-15] MEDS ORDERED: ACETAMINOPHEN 325 MG TABLET PO PRN (15:36)
[2017-10-15] MEDS: PIPERACILLIN/TAZOBACTAM 3,375 MG in SODIUM CHLORIDE 0.9% 100 ML IV SCH (17:39)
[2017-10-15] MEDS: PREGABALIN 100 MG CAPSULE PO SCH ×2 (17:40→20:34)
[2017-10-15] MEDS: ALPRAZolam 0.5 MG TABLET PO SCH ×2 (17:40→20:35)
[2017-10-15] MEDS: BACLOFEN 10 MG TABLET PO SCH ×2 (17:40→20:33)
[2017-10-15] MEDS: PANTOPRAZOLE 40 MG TABLET PO SCH (17:41)
[2017-10-15] MEDS: ALBUTEROL/IPRATROPIUM 3 ML NEB RESP TX SCH (19:39)
[2017-10-15] MEDS: ENOXAPARIN 30 MG/0.3 ML SYRINGE SUBCUT SCH (20:34)
[2017-10-15] MEDS: ZOLPIDEM 5 MG TABLET PO SCH (20:35)
[2017-10-15] MEDS: LEVOFLOXACIN INJ 750 MG in PREMIX 1 EACH IV SCH (21:25)
[2017-10-15] MEDS: VANCOMYCIN INJ 1,000 MG in SODIUM CHLORIDE 0.9% 250 ML IV SCH (23:00)
[2017-10-16] MEDS: SODIUM CHLORIDE 0.9% 1,000 ML IV SCH ×3 (00:16→17:15)
[2017-10-16] MEDS: PIPERACILLIN/TAZOBACTAM 3,375 MG in SODIUM CHLORIDE 0.9% 100 ML IV SCH ×4 (00:17→22:52)
[2017-10-16] MEDS: ALBUTEROL/IPRATROPIUM 3 ML NEB RESP TX SCH ×4 (01:15→19:19)
[2017-10-16 04:05] LABS: Basophils % 0.2 % (0.0-0.8); Eosinophils # 0.1 10*3/uL (0.0-0.87); Eosinophils % 0.4 % (0.00-10.9); Hematocrit 24.6 VOL% (42.0-52.0); Hemoglobin 7.9 GM/DL (14.0-18.0); Immature Granulocytes % 0.9 %; Immature Granulocytes Absolute 0.12 #; Lymphocytes # 1.6 10*3/uL (1.4-4.0); Lymphocytes % 11.5 % (21.2-54.2); Mean Corpuscular HGB Conc 32.1 GM/DL (32-36); Mean Corpuscular Hemoglobin 24 PG (27-34); Mean Corpuscular Volume 74.1 FL (87-102); Monocytes # 1.2 10*3/uL (0.11-0.8); Monocytes % 8.6 % (1.7-12.7); Neutrophils # 10.5 10*3/uL (1.4-7.4); Neutrophils % 78.4 % (38.7-73.9); Platelet Count 341 T/CUMM (130-400); Red Blood Count 3.32 MC/CUMM (3.8-5.5); Red Cell Distribution Width 18.3 % (9.3-17.3); White Blood Count 13.4 T/CUMM (4-12)
[2017-10-16 04:24] LABS: Lactic Acid 2.8 MMOL/L (0.4-2.0)
[2017-10-16 04:36] LABS: Alanine Aminotransferase < 9 U/L (16-61); Albumin 1.9 G/DL (3.4-5.0); Alkaline Phosphatase 68 U/L (45-117); Aspartate Amino Transferase 10 U/L (0-37); Blood Urea Nitrogen 8 MG/DL (7-18); Calcium 8.2 MG/DL (8.5-10.1); Glucose 84 MG/DL (74-106); Osmolality,Calculated 269.8 MOS/KG (273-304); Potassium 4.5 MMOL/L (3.5-5.1); Sodium 137 MMOL/L (136-145)
[2017-10-16 05:20] LABS: Band Neutrophils 1 % (0-10); Giant Platelets Few; Hypochromasia 1+; Lymphocytes 11 % (20-55); Platelet Estimate Adequate; Segmented Neutrophils 80 % (50-85); Total Cells Counted 100
[2017-10-16 05:21] LABS: Microcytosis Slight
[2017-10-16] MEDS: VANCOMYCIN INJ 1,000 MG in SODIUM CHLORIDE 0.9% 250 ML IV SCH ×2 (05:41→20:42)
[2017-10-16] MEDS: DORNASE ALFA 2.5 MG/2.5 ML VIAL RESP TX SCH ×2 (06:50→19:19)
[2017-10-16] MEDS: PANTOPRAZOLE 40 MG TABLET PO SCH (08:51)
[2017-10-16] MEDS: PREGABALIN 100 MG CAPSULE PO SCH ×2 (08:51→16:10)
[2017-10-16] MEDS: BACLOFEN 10 MG TABLET PO SCH ×2 (08:51→16:10)
[2017-10-16] MEDS: CITALOPRAM 20 MG TABLET PO SCH (08:51)
[2017-10-16] MEDS: ALPRAZolam 0.5 MG TABLET PO SCH (08:51)
[2017-10-16] MEDS: diphenhydrAMINE CAP 25 MG CAPSULE PO PRN ×2 (09:55→16:10)
[2017-10-16] MEDS: LEVOFLOXACIN INJ 750 MG in PREMIX 1 EACH IV SCH (09:56)
[2017-10-16] MEDS ORDERED: ACETAMINOPHEN 325 MG TABLET PO PRN (14:37)
[2017-10-16 22:00] LABS: Barbiturates Screen,Urine Negative (Negative); Benzodiazepines Screen,Urine Positive (Negative); Cannabinoid Screen,Urine Positive (Negative); Opiate Screen,Urine Positive (Negative); Phencyclidine Screen,Urine Negative (Negative)
[2017-10-16] MEDS: ENOXAPARIN 30 MG/0.3 ML SYRINGE SUBCUT SCH (22:50)
[2017-10-17] MEDS: ACETYLCYSTEINE 20% 800 MG/4 ML VIAL RESP TX SCH ×2 (01:04→08:00)
[2017-10-17] MEDS: ALBUTEROL/IPRATROPIUM 3 ML NEB RESP TX SCH ×4 (01:04→19:26)
[2017-10-17] MEDS: PREGABALIN 100 MG CAPSULE PO SCH ×4 (01:13→22:01)
[2017-10-17] MEDS: BACLOFEN 10 MG TABLET PO SCH ×4 (01:13→22:01)
[2017-10-17] MEDS: ALPRAZolam 0.5 MG TABLET PO SCH ×3 (01:13→22:01)
[2017-10-17] MEDS: ZOLPIDEM 5 MG TABLET PO SCH ×2 (01:13→22:01)
[2017-10-17] MEDS: SODIUM CHLORIDE 0.9% 1,000 ML IV SCH ×3 (04:50→21:29)
[2017-10-17] MEDS: VANCOMYCIN INJ 1,000 MG in SODIUM CHLORIDE 0.9% 250 ML IV SCH ×2 (05:14→18:43)
[2017-10-17] MEDS: PIPERACILLIN/TAZOBACTAM 3,375 MG in SODIUM CHLORIDE 0.9% 100 ML IV SCH ×3 (06:49→22:01)
[2017-10-17] MEDS: DORNASE ALFA 2.5 MG/2.5 ML VIAL RESP TX SCH ×2 (08:02→19:26)
[2017-10-17] MEDS: PANTOPRAZOLE 40 MG TABLET PO SCH (10:30)
[2017-10-17] MEDS: LEVOFLOXACIN INJ 750 MG in PREMIX 1 EACH IV SCH (10:30)
[2017-10-17] MEDS: CITALOPRAM 20 MG TABLET PO SCH (10:33)
[2017-10-17] MEDS: ENOXAPARIN 30 MG/0.3 ML SYRINGE SUBCUT SCH (20:05)
[2017-10-17] MEDS ORDERED: SODIUM CHLORIDE 0.9% 500 ML IV ONE (20:43)
[2017-10-18] MEDS: ALBUTEROL/IPRATROPIUM 3 ML NEB RESP TX SCH ×4 (00:47→19:39)
[2017-10-18] MEDS: VANCOMYCIN INJ 1,000 MG in SODIUM CHLORIDE 0.9% 250 ML IV SCH ×2 (04:30→18:43)
[2017-10-18] MEDS: PIPERACILLIN/TAZOBACTAM 3,375 MG in SODIUM CHLORIDE 0.9% 100 ML IV SCH ×3 (06:38→23:55)
[2017-10-18 06:44] LABS: Basophils % 0.2 % (0.0-0.8); Eosinophils # 0.2 10*3/uL (0.0-0.87); Eosinophils % 1.6 % (0.00-10.9); Hematocrit 23.6 VOL% (42.0-52.0); Hemoglobin 7.8 GM/DL (14.0-18.0); Immature Granulocytes % 0.9 %; Immature Granulocytes Absolute 0.11 #; Lymphocytes % 15.5 % (21.2-54.2); Mean Corpuscular HGB Conc 33.1 GM/DL (32-36); Mean Corpuscular Hemoglobin 24 PG (27-34); Mean Corpuscular Volume 72.4 FL (87-102); Mean Platelet Volume 10.8 FL (9.6-12.0); Monocytes # 1.3 10*3/uL (0.11-0.8); Monocytes % 10.2 % (1.7-12.7); Neutrophils # 9.3 10*3/uL (1.4-7.4); Neutrophils % 71.6 % (38.7-73.9); Platelet Count 390 T/CUMM (130-400); Red Blood Count 3.26 MC/CUMM (3.8-5.5); Red Cell Distribution Width 18.6 % (9.3-17.3); White Blood Count 12.9 T/CUMM (4-12)
[2017-10-18 07:12] LABS: Band Neutrophils 2 % (0-10); Eosinophils 1 % (0-10); Hypochromasia 1+; Lymphocytes 16 % (20-55); Microcytosis 1+; Segmented Neutrophils 73 % (50-85); Total Cells Counted 100
[2017-10-18 07:13] LABS: Platelet Estimate Normal
[2017-10-18 07:19] LABS: Osmolality,Calculated 282.1 MOS/KG (273-304); Potassium 3.9 MMOL/L (3.5-5.1)
[2017-10-18] MEDS: DORNASE ALFA 2.5 MG/2.5 ML VIAL RESP TX SCH ×2 (07:20→19:39)
[2017-10-18] MEDS: LEVOFLOXACIN INJ 750 MG in PREMIX 1 EACH IV SCH (09:12)
[2017-10-18] MEDS: BACLOFEN 10 MG TABLET PO SCH ×3 (09:13→20:58)
[2017-10-18] MEDS: PREGABALIN 100 MG CAPSULE PO SCH ×3 (09:13→20:57)
[2017-10-18] MEDS: CITALOPRAM 20 MG TABLET PO SCH (09:13)
[2017-10-18] MEDS: PANTOPRAZOLE 40 MG TABLET PO SCH (09:13)
[2017-10-18] MEDS: ALPRAZolam 0.5 MG TABLET PO SCH ×2 (09:20→20:57)
[2017-10-18 14:42] LABS: INR 1.1; PT Patient Result 11.3 SECS
[2017-10-18] MEDS: SODIUM CHLORIDE 0.9% 1,000 ML IV SCH ×2 (18:27→21:00)
[2017-10-18] MEDS: ENOXAPARIN 30 MG/0.3 ML SYRINGE SUBCUT SCH (20:57)
[2017-10-18] MEDS: ZALEPLON 5 MG CAPSULE PO SCH (20:58)
[2017-10-19] MEDS: ALBUTEROL/IPRATROPIUM 3 ML NEB RESP TX SCH ×4 (00:21→19:36)
[2017-10-19] MEDS: SODIUM CHLORIDE 0.9% 1,000 ML IV SCH ×2 (02:43→10:39)
[2017-10-19] MEDS: VANCOMYCIN INJ 1,000 MG in SODIUM CHLORIDE 0.9% 250 ML IV SCH ×2 (04:04→19:03)
[2017-10-19] MEDS: PIPERACILLIN/TAZOBACTAM 3,375 MG in SODIUM CHLORIDE 0.9% 100 ML IV SCH ×3 (06:26→23:45)
[2017-10-19 06:51] LABS: Basophils % 0.1 % (0.0-0.8); Eosinophils # 0.2 10*3/uL (0.0-0.87); Eosinophils % 2.5 % (0.00-10.9); Hematocrit 23.8 VOL% (42.0-52.0); Hemoglobin 7.8 GM/DL (14.0-18.0); Immature Granulocytes % 0.8 %; Immature Granulocytes Absolute 0.08 #; Lymphocytes # 2.3 10*3/uL (1.4-4.0); Mean Corpuscular HGB Conc 32.8 GM/DL (32-36); Mean Corpuscular Hemoglobin 24 PG (27-34); Mean Corpuscular Volume 72.8 FL (87-102); Mean Platelet Volume 10.4 FL (9.6-12.0); Monocytes # 1.1 10*3/uL (0.11-0.8); Monocytes % 11.8 % (1.7-12.7); Neutrophils # 5.7 10*3/uL (1.4-7.4); Neutrophils % 60.8 % (38.7-73.9); Platelet Count 384 T/CUMM (130-400); Red Blood Count 3.27 MC/CUMM (3.8-5.5); Red Cell Distribution Width 18.7 % (9.3-17.3); White Blood Count 9.4 T/CUMM (4-12)
[2017-10-19 07:17] LABS: Eosinophils 3 % (0-10); Hypochromasia 1+; Lymphocytes 25 % (20-55); Ovalocytes Slight; Platelet Estimate Adequate; Segmented Neutrophils 63 % (50-85); Total Cells Counted 100
[2017-10-19 07:18] LABS: Calcium 7.9 MG/DL (8.5-10.1); Giant Platelets Few; Microcytosis Slight; Osmolality,Calculated 284.7 MOS/KG (273-304); Potassium 3.9 MMOL/L (3.5-5.1)
[2017-10-19] MEDS: DORNASE ALFA 2.5 MG/2.5 ML VIAL RESP TX SCH ×2 (08:38→19:36)
[2017-10-19] MEDS: CITALOPRAM 20 MG TABLET PO SCH (09:17)
[2017-10-19] MEDS: ALPRAZolam 0.5 MG TABLET PO SCH ×2 (09:17→21:02)
[2017-10-19] MEDS: BACLOFEN 10 MG TABLET PO SCH ×3 (09:17→21:02)
[2017-10-19] MEDS: PANTOPRAZOLE 40 MG TABLET PO SCH (09:17)
[2017-10-19] MEDS: PREGABALIN 100 MG CAPSULE PO SCH ×3 (09:17→21:02)
[2017-10-19] MEDS: LEVOFLOXACIN INJ 750 MG in PREMIX 1 EACH IV SCH (10:38)
[2017-10-19] MEDS ORDERED: SODIUM CHLORIDE 0.9% 1,000 ML IV PRN (12:15)
[2017-10-19] MEDS: SODIUM HYPOCHLORITE 0.25% IRRIG 473 ML BOTTLE TOP SCH (17:04)
[2017-10-19] MEDS: BACITRACIN OINT 0.9 GM PACK TOP SCH (17:04)
[2017-10-19] MEDS: ZALEPLON 5 MG CAPSULE PO SCH (21:01)
[2017-10-19] MEDS: ENOXAPARIN 30 MG/0.3 ML SYRINGE SUBCUT SCH (21:02)
[2017-10-20] MEDS: LORazepam 2 MG/1 ML VIAL IV PRN ×2 (00:46→05:22)
[2017-10-20] MEDS: ALBUTEROL/IPRATROPIUM 3 ML NEB RESP TX SCH ×2 (00:55→07:44)
[2017-10-20] MEDS ORDERED: VANCOMYCIN INJ 1,000 MG in SODIUM CHLORIDE 0.9% 250 ML IV SCH (04:00)
[2017-10-20 05:48] LABS: Basophils % 0.3 % (0.0-0.8); Eosinophils # 0.3 10*3/uL (0.0-0.87); Eosinophils % 2.6 % (0.00-10.9); Hematocrit 29.9 VOL% (42.0-52.0); Hemoglobin 9.9 GM/DL (14.0-18.0); Immature Granulocytes % 1.3 %; Immature Granulocytes Absolute 0.14 #; Lymphocytes # 2.6 10*3/uL (1.4-4.0); Lymphocytes % 24.3 % (21.2-54.2); Mean Corpuscular HGB Conc 33.1 GM/DL (32-36); Mean Corpuscular Hemoglobin 25 PG (27-34); Mean Corpuscular Volume 75.1 FL (87-102); Mean Platelet Volume 10.4 FL (9.6-12.0); Monocytes # 0.9 10*3/uL (0.11-0.8); Monocytes % 8.5 % (1.7-12.7); Neutrophils # 6.7 10*3/uL (1.4-7.4); Platelet Count 465 T/CUMM (130-400); Red Blood Count 3.98 MC/CUMM (3.8-5.5); Red Cell Distribution Width 19.1 % (9.3-17.3); White Blood Count 10.6 T/CUMM (4-12)
[2017-10-20 06:04] LABS: Osmolality,Calculated 286.6 MOS/KG (273-304); Potassium 3.8 MMOL/L (3.5-5.1)
[2017-10-20 06:12] LABS: Hypochromasia 1+; Microcytosis 1+; Target Cells Slight
[2017-10-20 06:13] LABS: Anisocytosis 1+; Platelet Estimate Increased; Spherocytes Slight
[2017-10-20 07:06] VITALS: BP 111/75
[2017-10-20] MEDS: DORNASE ALFA 2.5 MG/2.5 ML VIAL RESP TX SCH (07:44)
[2017-10-20] MEDS: PANTOPRAZOLE 40 MG TABLET PO SCH (09:25)
[2017-10-20] MEDS: ALPRAZolam 0.5 MG TABLET PO SCH (09:25)
[2017-10-20] MEDS: LEVOFLOXACIN INJ 750 MG in PREMIX 1 EACH IV SCH (09:27)
[2017-10-20] MEDS: BACLOFEN 10 MG TABLET PO SCH (09:27)
[2017-10-20] MEDS: CITALOPRAM 20 MG TABLET PO SCH (09:27)
[2017-10-20] MEDS: PREGABALIN 100 MG CAPSULE PO SCH (09:27)
[2017-10-20] MEDS: BACITRACIN OINT 0.9 GM PACK TOP SCH (14:23)
[2017-10-20] MEDS: SODIUM HYPOCHLORITE 0.25% IRRIG 473 ML BOTTLE TOP SCH (14:23)
== END 2017-10-20 13:36 | disposition home or self-care (01) | DRG 720 ==
LOC: N.ED 12:13 → SUATTDRO 14:14 → N.EDINP 14:32 → N.3E 15:35
PROVIDERS: ADMIT Internal Medicine; ATTEND Internal Medicine

== ENCOUNTER 2019-06-08 09:56 | Inpatient (IN) ==
[2019-06-08] MEDS ORDERED: HYDROmorphone 2 MG/1 ML VIAL IV STA (10:14)
[2019-06-08] MEDS ORDERED: ONDANSETRON 4 MG/2 ML VIAL IV STA (10:14)
[2019-06-08] MEDS ORDERED: SODIUM CHLORIDE 0.9% 1,000 ML IV STA ×2 (10:14→12:29)
[2019-06-08 10:24] LABS: Basophils % 0.4 % (0.0-0.8); Eosinophils # 0.1 10*3/uL (0.0-0.87); Eosinophils % 0.5 % (0.00-10.9); Hematocrit 41.8 VOL% (42.0-52.0); Hemoglobin 13.3 GM/DL (14.0-18.0); Immature Granulocytes % 0.4 %; Immature Granulocytes Absolute 0.04 #; Lymphocytes # 2.4 10*3/uL (1.4-4.0); Lymphocytes % 22.4 % (21.2-54.2); Mean Corpuscular HGB Conc 31.8 GM/DL (32-36); Mean Corpuscular Volume 77.6 FL (87-102); Mean Platelet Volume 11.1 FL (9.6-12.0); Monocytes % 7.1 % (1.7-12.7); Neutrophils % 69.2 % (38.7-73.9); Platelet Count 422 T/CUMM (130-400); Red Blood Count 5.39 MC/CUMM (3.8-5.5); Red Cell Distribution Width 16.9 % (9.3-17.3); White Blood Count 10.7 T/CUMM (4-12)
[2019-06-08 10:54] LABS: Alanine Aminotransferase 11 U/L (16-61); Albumin 3.6 G/DL (3.4-5.0); Alkaline Phosphatase 70 U/L (45-117); Aspartate Amino Transferase 8 U/L (0-37); Blood Urea Nitrogen 13 MG/DL (7-18); Calcium 9.2 MG/DL (8.5-10.1); Estimated Glom Filtration Rate 135 ML/MIN; Glucose 114 MG/DL (74-106); Total Protein 9.2 G/DL (6.4-8.3)
[2019-06-08 12:23] LABS: Apearance,Urine CLOUDY (Clear); Bilirubin,Urine Negative (Negative); Blood, Urine Moderate mg/dL (Negative); Glucose,Urine (UA) Negative (Negative); Ketones,Urine 5 mg/dL (Negative); Mucus,Urine Many /LPF (Occasional); Nitrite,Urine Negative (Negative); Protein,Urine 100 MG/DL; RBC,Urine 15 /HPF (0-4); Urine Color Yellow (Yellow); Urine Specific Gravity 1.047 (1.001-1.035); WBC,Urine 30 /HPF (0-6)
[2019-06-08] MEDS ORDERED: PIPERACILLIN/TAZOBACTAM 3,375 MG in SODIUM CHLORIDE 0.9% 100 ML IV STA (12:29)
[2019-06-08] MEDS ORDERED: MORPHINE 4 MG/1 ML VIAL IV PRN (14:02)
[2019-06-08] MEDS ORDERED: ONDANSETRON 4 MG/2 ML VIAL IV PRN (14:02)
[2019-06-08] MEDS: SODIUM CHLORIDE 0.9% 1,000 ML IV SCH (18:15)
[2019-06-08] MEDS: FERROUS SULFATE 325 MG TABLET PO SCH (20:33)
[2019-06-08] MEDS: ZALEPLON 5 MG CAPSULE PO SCH (20:34)
[2019-06-08] MEDS: MEGESTROL 40 MG TABLET PO SCH (20:35)
[2019-06-08] MEDS: PREGABALIN 100 MG CAPSULE PO SCH (20:35)
[2019-06-08] MEDS: tiZANidine 4 MG TABLET PO SCH (20:35)
[2019-06-08] MEDS: BACLOFEN 10 MG TABLET PO SCH (20:38)
[2019-06-09] MEDS: SODIUM CHLORIDE 0.9% 1,000 ML IV SCH ×3 (00:48→19:30)
[2019-06-09 06:07] LABS: Basophils % 0.5 % (0.0-0.8); Eosinophils # 0.2 10*3/uL (0.0-0.87); Eosinophils % 2.7 % (0.00-10.9); Hematocrit 30.2 VOL% (42.0-52.0); Hemoglobin 9.2 GM/DL (14.0-18.0); Immature Granulocytes % 0.2 %; Immature Granulocytes Absolute 0.02 #; Lymphocytes # 2.3 10*3/uL (1.4-4.0); Lymphocytes % 27.6 % (21.2-54.2); Mean Corpuscular HGB Conc 30.5 GM/DL (32-36); Mean Corpuscular Volume 82.1 FL (87-102); Mean Platelet Volume 12.4 FL (9.6-12.0); Monocytes % 11.5 % (1.7-12.7); Neutrophils % 57.5 % (38.7-73.9); Platelet Count 212 T/CUMM (130-400); Red Blood Count 3.68 MC/CUMM (3.8-5.5); Red Cell Distribution Width 17.1 % (9.3-17.3); White Blood Count 8.3 T/CUMM (4-12)
[2019-06-09 06:32] LABS: Albumin 2.3 G/DL (3.4-5.0); Bilirubin,Total 0.4 MG/DL (0.2-1.0); Calcium 7.9 MG/DL (8.5-10.1); Osmolality,Calculated 271.7 MOS/KG (273-304); Total Protein 6.4 G/DL (6.4-8.3)
[2019-06-09] MEDS: BACLOFEN 10 MG TABLET PO SCH ×3 (08:38→20:14)
[2019-06-09] MEDS: PREGABALIN 100 MG CAPSULE PO SCH ×2 (08:38→20:13)
[2019-06-09] MEDS: FERROUS SULFATE 325 MG TABLET PO SCH ×3 (08:38→20:14)
[2019-06-09] MEDS: MEGESTROL 40 MG TABLET PO SCH ×2 (08:38→20:14)
[2019-06-09] MEDS: PANTOPRAZOLE 40 MG TABLET PO SCH (08:38)
[2019-06-09] MEDS ORDERED: DOCUSATE SODIUM 100 MG CAPSULE PO PRN (09:01)
[2019-06-09] MEDS: ALPRAZolam 0.5 MG TABLET PO SCH ×2 (10:17→20:13)
[2019-06-09] MEDS: tiZANidine 4 MG TABLET PO SCH ×2 (10:17→20:14)
[2019-06-09] MEDS: PIPERACILLIN/TAZOBACTAM 3,375 MG in SODIUM CHLORIDE 0.9% 100 ML IV SCH ×2 (10:21→17:53)
[2019-06-09] MEDS: POLYETHYLENE GLYCOL POWDER 17 GM PACK PO SCH (11:39)
[2019-06-09] MEDS: POTASSIUM CHLORIDE 20 MEQ TABLET PO PRN ×2 (11:40→15:54)
[2019-06-09] MEDS ORDERED: MAGNESIUM SULF RIDER 4 GM in PREMIX 1 EACH IV PRN (13:39)
[2019-06-09] MEDS ORDERED: MAGNESIUM SULF RIDER 2 GM in PREMIX 1 EACH IV PRN (13:39)
[2019-06-09] MEDS ORDERED: SKIN HEALING OINT (AQUAPHOR) 50 GM TUBE TOP PRN (14:28)
[2019-06-09] MEDS: ZALEPLON 5 MG CAPSULE PO SCH (20:13)
[2019-06-10] MEDS: PIPERACILLIN/TAZOBACTAM 3,375 MG in SODIUM CHLORIDE 0.9% 100 ML IV SCH ×3 (01:18→17:33)
[2019-06-10] MEDS: SODIUM CHLORIDE 0.9% 1,000 ML IV SCH (04:00)
[2019-06-10 05:12] LABS: Basophils % 0.4 % (0.0-0.8); Eosinophils # 0.2 10*3/uL (0.0-0.87); Eosinophils % 3.1 % (0.00-10.9); Hematocrit 29.2 VOL% (42.0-52.0); Hemoglobin 9.5 GM/DL (14.0-18.0); Immature Granulocytes % 0.1 %; Immature Granulocytes Absolute 0.01 #; Lymphocytes # 2.5 10*3/uL (1.4-4.0); Mean Corpuscular HGB Conc 32.5 GM/DL (32-36); Mean Corpuscular Volume 77.2 FL (87-102); Mean Platelet Volume 11.2 FL (9.6-12.0); Monocytes % 11.8 % (1.7-12.7); Neutrophils % 49.6 % (38.7-73.9); Platelet Count 283 T/CUMM (130-400); Red Blood Count 3.78 MC/CUMM (3.8-5.5); Red Cell Distribution Width 16.9 % (9.3-17.3); White Blood Count 7.2 T/CUMM (4-12)
[2019-06-10 05:47] LABS: Albumin 2.7 G/DL (3.4-5.0); Bilirubin,Total 0.7 MG/DL (0.2-1.0); Calcium 8.2 MG/DL (8.5-10.1); Osmolality,Calculated 273.5 MOS/KG (273-304); Total Protein 6.9 G/DL (6.4-8.3)
[2019-06-10] MEDS: ALPRAZolam 0.5 MG TABLET PO SCH ×2 (11:00→23:17)
[2019-06-10] MEDS: MEGESTROL 40 MG TABLET PO SCH ×2 (11:00→23:16)
[2019-06-10] MEDS: tiZANidine 4 MG TABLET PO SCH ×2 (11:00→23:16)
[2019-06-10] MEDS: FERROUS SULFATE 325 MG TABLET PO SCH ×3 (11:00→23:16)
[2019-06-10] MEDS: PREGABALIN 100 MG CAPSULE PO SCH ×2 (11:00→23:19)
[2019-06-10] MEDS: BACLOFEN 10 MG TABLET PO SCH ×3 (11:01→23:16)
[2019-06-10] MEDS: POLYETHYLENE GLYCOL POWDER 17 GM PACK PO SCH (11:01)
[2019-06-10] MEDS: PANTOPRAZOLE 40 MG TABLET PO SCH (11:01)
[2019-06-10] MEDS ORDERED: SERTRALINE 25 MG TABLET PO ONE (13:37)
[2019-06-10] MEDS ORDERED: LORazepam 2 MG/1 ML VIAL IV PRN (13:41)
[2019-06-10] MEDS: PHENAZOPYRIDINE 95 MG TABLET PO SCH (17:33)
[2019-06-10] MEDS ORDERED: LORazepam 2 MG/1 ML VIAL IM ONE (22:56)
[2019-06-10] MEDS: ZALEPLON 5 MG CAPSULE PO SCH (23:17)
[2019-06-11] MEDS: PIPERACILLIN/TAZOBACTAM 3,375 MG in SODIUM CHLORIDE 0.9% 100 ML IV SCH ×3 (00:04→17:48)
[2019-06-11 04:00] VITALS: BP 103/65
[2019-06-11] MEDS: FERROUS SULFATE 325 MG TABLET PO SCH ×2 (08:35→17:48)
[2019-06-11] MEDS: MEGESTROL 40 MG TABLET PO SCH (08:35)
[2019-06-11] MEDS: tiZANidine 4 MG TABLET PO SCH (08:35)
[2019-06-11] MEDS: PREGABALIN 100 MG CAPSULE PO SCH (08:35)
[2019-06-11] MEDS: PHENAZOPYRIDINE 95 MG TABLET PO SCH ×3 (08:35→17:50)
[2019-06-11] MEDS: POLYETHYLENE GLYCOL POWDER 17 GM PACK PO SCH (08:35)
[2019-06-11] MEDS: PANTOPRAZOLE 40 MG TABLET PO SCH (08:35)
[2019-06-11] MEDS: BACLOFEN 10 MG TABLET PO SCH ×2 (08:35→17:48)
[2019-06-11] MEDS: ALPRAZolam 0.5 MG TABLET PO SCH (08:35)
[2019-06-11] MEDS ORDERED: SERTRALINE 50 MG TABLET PO SCH (09:00)
[2019-06-11] MEDS ORDERED: LIDOCAINE 2% TOP JELLY 20 ML VIAL INTRAURETH ONE ×2 (11:21)
[2019-06-11] MEDS ORDERED: SODIUM CHLORIDE 0.9% 1,000 ML IV SCH (13:00)
[2019-06-11] MEDS ORDERED: LACTATED RINGERS 500 ML IV ONE (13:30)
[2019-06-11] MEDS ORDERED: NOREPINEPHRINE 8 MG in SODIUM CHLORIDE 0.9% 242 ML IV PRN (13:51)
[2019-06-11] MEDS ORDERED: NOREPINEPHRINE 4 MG/4 ML VIAL IV ONE (13:52)
[2019-06-11] MEDS ORDERED: LACTATED RINGERS 1,000 ML IV SCH (14:00)
[2019-06-11 18:51] LABS: Basophils % 0.2 % (0.0-0.8); Eosinophils # 0.1 10*3/uL (0.0-0.87); Eosinophils % 1.2 % (0.00-10.9); Hematocrit 31.7 VOL% (42.0-52.0); Hemoglobin 10.2 GM/DL (14.0-18.0); Immature Granulocytes % 0.2 %; Immature Granulocytes Absolute 0.03 #; Lymphocytes # 2.1 10*3/uL (1.4-4.0); Lymphocytes % 16.9 % (21.2-54.2); Mean Corpuscular HGB Conc 32.2 GM/DL (32-36); Mean Corpuscular Volume 78.9 FL (87-102); Mean Platelet Volume 11.5 FL (9.6-12.0); Monocytes % 8.9 % (1.7-12.7); Neutrophils % 72.6 % (38.7-73.9); Platelet Count 328 T/CUMM (130-400); Red Blood Count 4.02 MC/CUMM (3.8-5.5); Red Cell Distribution Width 17.1 % (9.3-17.3); White Blood Count 12.2 T/CUMM (4-12)
[2019-06-11 19:07] LABS: Calcium 9.3 MG/DL (8.5-10.1); Osmolality,Calculated 281.1 MOS/KG (273-304)
== END 2019-06-11 18:50 | disposition home or self-care (01) | DRG 463 ==
LOC: EDUNIT# → EDBD → N.EDINP 09:56 → N.ED 09:56 → SUATTDRO 14:02 → OBSVTOIN 14:02 → INTOOBSV 14:02 → N.5E 17:01 → N.ICU 06-10 22:55
PROVIDERS: ADMIT Internal Medicine Nephrology; ATTEND Family Medicine

== ENCOUNTER 2019-06-21 20:24 | Inpatient (IN) ==
[2019-06-21] MEDS ORDERED: LACTATED RINGERS 1,000 ML IV ONE (21:00)
[2019-06-21 21:56] LABS: Basophils % 0.4 % (0.0-0.8); Eosinophils # 0.3 10*3/uL (0.0-0.87); Eosinophils % 3.3 % (0.00-10.9); Hematocrit 43.2 VOL% (42.0-52.0); Hemoglobin 14.1 GM/DL (14.0-18.0); Immature Granulocytes % 0.4 %; Immature Granulocytes Absolute 0.03 #; Lymphocytes # 1.9 10*3/uL (1.4-4.0); Lymphocytes % 22.8 % (21.2-54.2); Mean Corpuscular HGB Conc 32.6 GM/DL (32-36); Mean Corpuscular Volume 77.6 FL (87-102); Mean Platelet Volume 10.3 FL (9.6-12.0); Monocytes % 7.8 % (1.7-12.7); Neutrophils % 65.3 % (38.7-73.9); Platelet Count 371 T/CUMM (130-400); Red Blood Count 5.57 MC/CUMM (3.8-5.5); Red Cell Distribution Width 17.7 % (9.3-17.3); White Blood Count 8.5 T/CUMM (4-12)
[2019-06-21 22:11] LABS: Alanine Aminotransferase 15 U/L (16-61); Albumin 3.2 G/DL (3.4-5.0); Alkaline Phosphatase 54 U/L (45-117); Aspartate Amino Transferase 10 U/L (0-37); Bilirubin,Total < 0.39 MG/DL (0.2-1.0); Blood Urea Nitrogen 8 MG/DL (7-18); Calcium 9.1 MG/DL (8.5-10.1); Estimated Glom Filtration Rate 155 ML/MIN; Glucose 96 MG/DL (74-106); Osmolality,Calculated 280.1 MOS/KG (273-304); Total Protein 8.4 G/DL (6.4-8.3)
[2019-06-21 23:18] LABS: Hyaline Casts,Urine 516 /LPF (0-3); Mucus,Urine Many /LPF (Occasional); RBC,Urine 3103 /HPF (0-4); WBC,Urine 65 /HPF (0-6)
[2019-06-21 23:19] LABS: Apearance,Urine Turbid (Clear); Urine Color Red (Yellow)
[2019-06-21 23:20] LABS: Bilirubin,Urine 1+ mg/dL (Negative); Blood, Urine 50 mg/dL (Negative); Glucose,Urine (UA) Negative (Negative); Ketones,Urine Negative (Negative); Nitrite,Urine Negative (Negative); Protein,Urine 100 MG/DL; Urine Specific Gravity 1.025 (1.001-1.035)
[2019-06-21 23:21] LABS: Urine Urobilinogen < 2.0 EU/DL (0.2-1.0)
[2019-06-22] MEDS ORDERED: ONDANSETRON 4 MG/2 ML VIAL IV PRN (00:49)
[2019-06-22] MEDS ORDERED: PROMETHAZINE 25 MG/1 ML VIAL IM PRN (00:49)
[2019-06-22] MEDS ORDERED: DOCUSATE SODIUM 100 MG CAPSULE PO PRN (00:49)
[2019-06-22] MEDS ORDERED: ALBUTEROL 2.5 MG/3 ML NEB RESP TX PRN (00:49)
[2019-06-22] MEDS ORDERED: ACETAMINOPHEN 325 MG TABLET PO PRN (00:49)
[2019-06-22] MEDS ORDERED: LEVOFLOXACIN INJ 500 MG in PREMIX 1 EACH IV SCH (01:00)
[2019-06-22] MEDS: SODIUM CHLORIDE 0.9% 1,000 ML IV SCH ×2 (01:15→09:40)
[2019-06-22 06:00] LABS: Calcium 8.3 MG/DL (8.5-10.1); Osmolality,Calculated 277.4 MOS/KG (273-304)
[2019-06-22] MEDS ORDERED: PANTOPRAZOLE 40 MG TABLET PO PRN (06:42)
[2019-06-22 07:16] LABS: Basophils # 0.1 10*3/uL (0.0-0.2); Basophils % 0.4 % (0.0-0.8); Eosinophils # 0.4 10*3/uL (0.0-0.87); Eosinophils % 3.3 % (0.00-10.9); Hematocrit 30.1 VOL% (42.0-52.0); Immature Granulocytes % 0.4 %; Immature Granulocytes Absolute 0.04 #; Lymphocytes # 2.1 10*3/uL (1.4-4.0); Lymphocytes % 18.7 % (21.2-54.2); Mean Corpuscular HGB Conc 32.2 GM/DL (32-36); Mean Corpuscular Volume 78.4 FL (87-102); Mean Platelet Volume 10.2 FL (9.6-12.0); Monocytes % 8.8 % (1.7-12.7); Neutrophils % 68.4 % (38.7-73.9); Platelet Count 417 T/CUMM (130-400); Red Cell Distribution Width 17.2 % (9.3-17.3)
[2019-06-22 07:19] LABS: Hemoglobin 9.7 GM/DL (14.0-18.0); Red Blood Count 3.84 MC/CUMM (3.8-5.5); White Blood Count 11.1 T/CUMM (4-12)
[2019-06-22] MEDS ORDERED: MEGESTROL 40 MG TABLET PO SCH (09:00)
[2019-06-22] MEDS ORDERED: tiZANidine 4 MG TABLET PO SCH (09:00)
[2019-06-22] MEDS ORDERED: ALPRAZolam 0.5 MG TABLET PO SCH (09:00)
[2019-06-22] MEDS ORDERED: PREGABALIN 75 MG CAPSULE PO SCH (09:00)
[2019-06-22] MEDS ORDERED: FERROUS SULFATE 325 MG TABLET PO SCH (09:00)
[2019-06-22] MEDS ORDERED: BACLOFEN 10 MG TABLET PO SCH (09:00)
[2019-06-22] MEDS ORDERED: PHENAZOPYRIDINE 95 MG TABLET PO ONE (09:30)
[2019-06-22 12:58] VITALS: BP 107/68
[2019-06-22] MEDS ORDERED: ZALEPLON 5 MG CAPSULE PO SCH (21:00)
[2019-06-23] MEDS ORDERED: LEVOFLOXACIN 500 MG TABLET PO SCH (09:00)
== END 2019-06-22 13:15 | disposition home health service (06) | DRG 463 ==
LOC: EDBD → EDUNIT# → N.ED 20:24 → N.EDINP 06-22 00:38 → N.CC 06-22 00:58
PROVIDERS: ADMIT Internal Medicine; ATTEND Internal Medicine

== ENCOUNTER 2021-05-27 09:42 | Inpatient (IN) ==
[2021-05-27] MEDS: ASPIRIN 325 MG TABLET PO STA ×2 (09:50→12:45)
[2021-05-27 11:33] LABS: Alanine Aminotransferase < 9 U/L (16-61); Albumin 2.1 G/DL (3.4-5.0); Alkaline Phosphatase 55 U/L (45-117); Aspartate Amino Transferase 10 U/L (0-37); Blood Urea Nitrogen 37 MG/DL (7-18); Calcium 8.3 MG/DL (8.5-10.1); Carbon Dioxide 18 MMOL/L (21-32); Estimated Glom Filtration Rate 47 ML/MIN; Glucose 96 MG/DL (74-106); Osmolality,Calculated 287.4 MOS/KG (273-304); Potassium 2.6 MMOL/L (3.5-5.1); Sodium 140 MMOL/L (136-145); Total Protein 8.6 G/DL (6.4-8.2)
[2021-05-27 11:44] LABS: Basophils % 0.1 % (0.0-0.8); Immature Granulocytes % 0.7 %; Immature Granulocytes Absolute 0.15 #; Lymphocytes # 1.3 10*3/uL (1.4-4.0); Lymphocytes % 6.5 % (21.2-54.2); Mean Corpuscular HGB Conc 30.9 GM/DL (32-36); Mean Platelet Volume 11.1 FL (9.6-12.0); Monocytes % 11.9 % (1.7-12.7); Neutrophils % 80.8 % (38.7-73.9); Platelet Count 492 T/CUMM (130-400); Red Blood Count 2.05 MC/CUMM (3.8-5.5); Red Cell Distribution Width 17.5 % (9.3-17.3); White Blood Count 20.1 T/CUMM (4-12)
[2021-05-27 11:49] LABS: Hematocrit 16.2 VOL% (42.0-52.0)
[2021-05-27] MEDS ORDERED: SODIUM CHLORIDE 0.9% 1,000 ML IV PRN ×2 (12:05→18:24)
[2021-05-27 12:16] LABS: Anisocytosis 1+; Band Neutrophils 14 % (0-10); Hypochromasia Slight; Lymphocytes 8 % (20-55); Platelet Estimate Normal; Segmented Neutrophils 67 % (50-85); Total Cells Counted 100
[2021-05-27] MEDS ORDERED: PIPERACILLIN/TAZOBACTAM 3,375 MG in SODIUM CHLORIDE 0.9% 100 ML IV STA (12:16)
[2021-05-27 12:39] LABS: Bilirubin,Urine Negative (Negative); Blood, Urine Moderate mg/dL (Negative); Glucose,Urine (UA) Negative (Negative); Ketones,Urine Negative (Negative); Mucus,Urine Occasional /LPF (Occasional); Nitrite,Urine Negative (Negative); Protein,Urine 100 MG/DL; RBC,Urine 58 /HPF (0-4); Urine Appearance CLOUDY (Clear); Urine Color Amber (Yellow); Urine Urobilinogen < 2.0 EU/DL (0.2-1.0)
[2021-05-27] MEDS ORDERED: ACETAMINOPHEN 325 MG TABLET PO PRN (13:12)
[2021-05-27] MEDS ORDERED: ONDANSETRON 4 MG/2 ML VIAL IV PRN (13:12)
[2021-05-27] MEDS ORDERED: guaiFENesin/DM ER 600-30 MG TABLET PO PRN (13:12)
[2021-05-27] MEDS ORDERED: POTASSIUM CHLORIDE RIDER 10 MEQ/100 ML PREMIX IV PRN (13:54)
[2021-05-27] MEDS ORDERED: POTASSIUM CHLORIDE 20 MEQ TABLET PO PRN (13:54)
[2021-05-27] MEDS: POTASSIUM CHLORIDE INJ 20 MEQ in LACTATED RINGERS 1,000 ML IV SCH (15:17)
[2021-05-27] MEDS: BACLOFEN 10 MG TABLET PO SCH ×2 (15:22→22:35)
[2021-05-27] MEDS: cefTRIAXone 1,000 MG in SODIUM CHLORIDE 0.9% 100 ML IV SCH (15:34)
[2021-05-27 16:12] LABS: Folate 9.08 NG/ML (5.38-24.0); Vitamin B12 581 PG/ML (211-911)
[2021-05-27 16:58] LABS: Barbiturates Screen,Urine Negative (Negative); Benzodiazepines Screen,Urine Negative (Negative); Cannabinoid Screen,Urine Positive (Negative); Opiate Screen,Urine Negative (Negative); Phencyclidine Screen,Urine Negative (Negative)
[2021-05-27 17:14] LABS: % Iron Saturation 5.2 % (18-50)
[2021-05-27 18:19] LABS: Basophils % 0.2 % (0.0-0.8); Immature Granulocytes % 0.8 %; Immature Granulocytes Absolute 0.11 #; Lymphocytes # 1.3 10*3/uL (1.4-4.0); Mean Corpuscular HGB Conc 30.7 GM/DL (32-36); Mean Corpuscular Volume 79.7 FL (87-102); Mean Platelet Volume 11.2 FL (9.6-12.0); Monocytes % 11.5 % (1.7-12.7); Neutrophils % 78.5 % (38.7-73.9); Platelet Count 423 T/CUMM (130-400); Red Blood Count 1.72 MC/CUMM (3.8-5.5); Red Cell Distribution Width 17.9 % (9.3-17.3); White Blood Count 13.9 T/CUMM (4-12)
[2021-05-27 18:22] LABS: Hematocrit 13.7 VOL% (42.0-52.0); Hemoglobin 4.2 GM/DL (14.0-18.0)
[2021-05-27 18:45] LABS: Band Neutrophils 3 % (0-10); Hypochromasia 1+; Lymphocytes 7 % (20-55); Microcytosis 1+; Platelet Estimate Decreased; Segmented Neutrophils 79 % (50-85); Total Cells Counted 100
[2021-05-27] MEDS: PREGABALIN 50 MG CAPSULE PO SCH ×2 (18:57→22:35)
[2021-05-27 19:16] LABS: Sedimentation Rate-Westergren 158 MM/HR (0-15)
[2021-05-27] MEDS: traZODone 50 MG TABLET PO SCH (22:34)
[2021-05-28 05:50] LABS: Basophils % 0.2 % (0.0-0.8); Eosinophils # 0.1 10*3/uL (0.0-0.87); Eosinophils % 0.6 % (0.00-10.9); Hematocrit 27.6 VOL% (42.0-52.0); Hemoglobin 8.6 GM/DL (14.0-18.0); Immature Granulocytes % 0.9 %; Immature Granulocytes Absolute 0.11 #; Lymphocytes % 16.4 % (21.2-54.2); Mean Corpuscular HGB Conc 31.2 GM/DL (32-36); Mean Corpuscular Volume 83.6 FL (87-102); Mean Platelet Volume 10.9 FL (9.6-12.0); Monocytes % 10.2 % (1.7-12.7); Neutrophils % 71.7 % (38.7-73.9); Platelet Count 429 T/CUMM (130-400); Red Cell Distribution Width 18.2 % (9.3-17.3); White Blood Count 12.4 T/CUMM (4-12)
[2021-05-28 05:51] LABS: Hematocrit 27.4 VOL% (42.0-52.0); Hemoglobin 8.7 GM/DL (14.0-18.0)
[2021-05-28 06:10] LABS: Potassium 3.6 MMOL/L (3.5-5.1)
[2021-05-28] MEDS: POTASSIUM CHLORIDE INJ 20 MEQ in LACTATED RINGERS 1,000 ML IV SCH ×3 (07:20→21:22)
[2021-05-28] MEDS: PANTOPRAZOLE 40 MG TABLET PO SCH (08:33)
[2021-05-28] MEDS: PREGABALIN 50 MG CAPSULE PO SCH ×3 (08:33→21:07)
[2021-05-28] MEDS: BACLOFEN 10 MG TABLET PO SCH ×3 (08:33→20:39)
[2021-05-28 09:03] LABS: Hemoglobin A1 (Alkaline) 97.1 % (96.5-98.5); Hemoglobin A2 (Alkaline) 2.9 % (1.5-3.5)
[2021-05-28] MEDS: COLLAGENASE OINT 30 GM TUBE TOP SCH (13:10)
[2021-05-28] MEDS ORDERED: ACETAMINOPHEN 325 MG TABLET PO PRN (13:11)
[2021-05-28] MEDS: cefTRIAXone 1,000 MG in SODIUM CHLORIDE 0.9% 100 ML IV SCH (15:53)
[2021-05-28] MEDS ORDERED: IBUPROFEN 800 MG TABLET PO PRN (18:47)
[2021-05-28] MEDS: traZODone 50 MG TABLET PO SCH (20:39)
[2021-05-28] MEDS: AMPICILLIN/SULBACTAM 3,000 MG in SODIUM CHLORIDE 0.9% 100 ML IV SCH (21:07)
[2021-05-29 05:40] LABS: Basophils % 0.1 % (0.0-0.8); Eosinophils # 0.1 10*3/uL (0.0-0.87); Eosinophils % 0.6 % (0.00-10.9); Hematocrit 23.3 VOL% (42.0-52.0); Hemoglobin 7.4 GM/DL (14.0-18.0); Immature Granulocytes % 0.8 %; Immature Granulocytes Absolute 0.11 #; Lymphocytes # 2.7 10*3/uL (1.4-4.0); Lymphocytes % 19.4 % (21.2-54.2); Mean Corpuscular HGB Conc 31.8 GM/DL (32-36); Mean Corpuscular Volume 82.6 FL (87-102); Mean Platelet Volume 11.3 FL (9.6-12.0); Monocytes % 12.9 % (1.7-12.7); Neutrophils % 66.2 % (38.7-73.9); Platelet Count 400 T/CUMM (130-400); Red Blood Count 2.82 MC/CUMM (3.8-5.5); Red Cell Distribution Width 17.5 % (9.3-17.3); White Blood Count 14.2 T/CUMM (4-12)
[2021-05-29 06:06] LABS: Calcium 7.9 MG/DL (8.5-10.1); Osmolality,Calculated 276.5 MOS/KG (273-304); Potassium 3.4 MMOL/L (3.5-5.1)
[2021-05-29] MEDS: AMPICILLIN/SULBACTAM 3,000 MG in SODIUM CHLORIDE 0.9% 100 ML IV SCH ×3 (06:38→21:55)
[2021-05-29] MEDS: BACLOFEN 10 MG TABLET PO SCH ×3 (10:01→21:55)
[2021-05-29] MEDS: PREGABALIN 50 MG CAPSULE PO SCH ×2 (10:02→16:20)
[2021-05-29] MEDS: FERRIC GLUCONATE COMPLEX 125 MG in SODIUM CHLORIDE 0.9% 100 ML IV SCH (10:03)
[2021-05-29] MEDS: COLLAGENASE OINT 30 GM TUBE TOP SCH (10:03)
[2021-05-29] MEDS: PANTOPRAZOLE 40 MG TABLET PO SCH (10:03)
[2021-05-29] MEDS: POTASSIUM CHLORIDE INJ 20 MEQ in LACTATED RINGERS 1,000 ML IV SCH ×2 (17:42→20:27)
[2021-05-29] MEDS: traZODone 50 MG TABLET PO SCH (21:55)
[2021-05-30] MEDS: PREGABALIN 50 MG CAPSULE PO SCH (02:57)
[2021-05-30 04:08] LABS: Basophils % 0.2 % (0.0-0.8); Eosinophils # 0.5 10*3/uL (0.0-0.87); Eosinophils % 4.9 % (0.00-10.9); Hematocrit 22.5 VOL% (42.0-52.0); Immature Granulocytes % 1.1 %; Lymphocytes # 2.7 10*3/uL (1.4-4.0); Lymphocytes % 29.8 % (21.2-54.2); Mean Corpuscular HGB Conc 31.1 GM/DL (32-36); Mean Platelet Volume 11.2 FL (9.6-12.0); Monocytes % 12.2 % (1.7-12.7); Neutrophils % 51.8 % (38.7-73.9); Platelet Count 430 T/CUMM (130-400); Red Blood Count 2.71 MC/CUMM (3.8-5.5); Red Cell Distribution Width 17.5 % (9.3-17.3); White Blood Count 9.1 T/CUMM (4-12)
[2021-05-30 04:31] LABS: Calcium 7.3 MG/DL (8.5-10.1); Osmolality,Calculated 274.5 MOS/KG (273-304)
[2021-05-30] MEDS: POTASSIUM CHLORIDE INJ 20 MEQ in LACTATED RINGERS 1,000 ML IV SCH ×2 (04:38→09:40)
[2021-05-30 04:48] LABS: Platelet Estimate Increased
[2021-05-30] MEDS: AMPICILLIN/SULBACTAM 3,000 MG in SODIUM CHLORIDE 0.9% 100 ML IV SCH ×3 (05:30→22:21)
[2021-05-30] MEDS ORDERED: SODIUM CHLORIDE 0.9% 1,000 ML IV PRN (08:37)
[2021-05-30] MEDS: PANTOPRAZOLE 40 MG TABLET PO SCH (09:41)
[2021-05-30] MEDS: BACLOFEN 10 MG TABLET PO SCH ×3 (09:41→22:20)
[2021-05-30] MEDS: FERRIC GLUCONATE COMPLEX 125 MG in SODIUM CHLORIDE 0.9% 100 ML IV SCH (09:43)
[2021-05-30] MEDS: COLLAGENASE OINT 30 GM TUBE TOP SCH (09:44)
[2021-05-30] MEDS: PREGABALIN 100 MG CAPSULE PO SCH ×3 (09:45→22:19)
[2021-05-30] MEDS ORDERED: ERGOCALCIFEROL 50,000 UNIT CAPSULE PO SCH (11:30)
[2021-05-30] MEDS: traZODone 50 MG TABLET PO SCH (22:20)
[2021-05-31] MEDS: AMPICILLIN/SULBACTAM 3,000 MG in SODIUM CHLORIDE 0.9% 100 ML IV SCH ×3 (05:01→21:06)
[2021-05-31 07:10] LABS: Basophils # 0.1 10*3/uL (0.0-0.2); Basophils % 0.5 % (0.0-0.8); Eosinophils # 0.7 10*3/uL (0.0-0.87); Eosinophils % 5.6 % (0.00-10.9); Hematocrit 35.4 VOL% (42.0-52.0); Immature Granulocytes % 1.5 %; Immature Granulocytes Absolute 0.18 #; Lymphocytes # 3.4 10*3/uL (1.4-4.0); Lymphocytes % 27.3 % (21.2-54.2); Mean Corpuscular HGB Conc 31.4 GM/DL (32-36); Mean Corpuscular Volume 83.5 FL (87-102); Mean Platelet Volume 11.7 FL (9.6-12.0); Monocytes % 11.2 % (1.7-12.7); Neutrophils % 53.9 % (38.7-73.9); Platelet Count 503 T/CUMM (130-400); Red Cell Distribution Width 16.9 % (9.3-17.3); White Blood Count 12.3 T/CUMM (4-12)
[2021-05-31 07:18] LABS: Hemoglobin 11.1 GM/DL (14.0-18.0); Red Blood Count 4.24 MC/CUMM (3.8-5.5)
[2021-05-31 07:26] LABS: Calcium 8.3 MG/DL (8.5-10.1); Osmolality,Calculated 271.7 MOS/KG (273-304); Potassium 3.8 MMOL/L (3.5-5.1)
[2021-05-31 07:48] LABS: Hypochromasia 1+; Microcytosis 1+
[2021-05-31 07:49] LABS: Ovalocytes Slight; Platelet Estimate Increased; Polychromasia Slight
[2021-05-31] MEDS: PREGABALIN 100 MG CAPSULE PO SCH ×3 (09:06→21:10)
[2021-05-31] MEDS: PANTOPRAZOLE 40 MG TABLET PO SCH (09:09)
[2021-05-31] MEDS: BACLOFEN 10 MG TABLET PO SCH ×3 (09:09→21:13)
[2021-05-31] MEDS: POTASSIUM CHLORIDE INJ 20 MEQ in LACTATED RINGERS 1,000 ML IV SCH ×4 (09:09→21:05)
[2021-05-31] MEDS: COLLAGENASE OINT 30 GM TUBE TOP SCH (09:10)
[2021-05-31] MEDS: FERRIC GLUCONATE COMPLEX 125 MG in SODIUM CHLORIDE 0.9% 100 ML IV SCH (09:43)
[2021-05-31] MEDS: traZODone 50 MG TABLET PO SCH (21:13)
[2021-06-01 04:50] LABS: Basophils # 0.1 10*3/uL (0.0-0.2); Basophils % 0.4 % (0.0-0.8); Eosinophils # 0.8 10*3/uL (0.0-0.87); Eosinophils % 6.1 % (0.00-10.9); Hematocrit 34.7 VOL% (42.0-52.0); Hemoglobin 10.8 GM/DL (14.0-18.0); Immature Granulocytes % 1.9 %; Immature Granulocytes Absolute 0.27 #; Lymphocytes # 3.8 10*3/uL (1.4-4.0); Lymphocytes % 27.2 % (21.2-54.2); Mean Corpuscular HGB Conc 31.1 GM/DL (32-36); Mean Corpuscular Volume 86.3 FL (87-102); Mean Platelet Volume 11.2 FL (9.6-12.0); Monocytes % 12.8 % (1.7-12.7); Neutrophils % 51.6 % (38.7-73.9); Platelet Count 494 T/CUMM (130-400); Red Blood Count 4.02 MC/CUMM (3.8-5.5); Red Cell Distribution Width 17.6 % (9.3-17.3); White Blood Count 13.9 T/CUMM (4-12)
[2021-06-01 04:58] LABS: Calcium 8.2 MG/DL (8.5-10.1); Osmolality,Calculated 276.4 MOS/KG (273-304); Potassium 4.5 MMOL/L (3.5-5.1)
[2021-06-01] MEDS: AMPICILLIN/SULBACTAM 3,000 MG in SODIUM CHLORIDE 0.9% 100 ML IV SCH (05:17)
[2021-06-01] MEDS: PREGABALIN 100 MG CAPSULE PO SCH ×3 (08:19→21:23)
[2021-06-01] MEDS: BACLOFEN 10 MG TABLET PO SCH ×3 (08:20→21:23)
[2021-06-01] MEDS: PANTOPRAZOLE 40 MG TABLET PO SCH (08:20)
[2021-06-01] MEDS: COLLAGENASE OINT 30 GM TUBE TOP SCH (08:21)
[2021-06-01] MEDS ORDERED: POLYETHYLENE GLYCOL POWDER 17 GM PACK PO PRN (08:28)
[2021-06-01] MEDS: POTASSIUM CHLORIDE INJ 20 MEQ in LACTATED RINGERS 1,000 ML IV SCH ×3 (08:30→17:41)
[2021-06-01] MEDS: DOCUSATE SODIUM 100 MG CAPSULE PO SCH ×2 (08:50→21:23)
[2021-06-01] MEDS: FERRIC GLUCONATE COMPLEX 125 MG in SODIUM CHLORIDE 0.9% 100 ML IV SCH (08:50)
[2021-06-01] MEDS: PIPERACILLIN/TAZOBACTAM 3,375 MG in SODIUM CHLORIDE 0.9% 100 ML IV SCH ×3 (10:20→23:55)
[2021-06-01] MEDS: traZODone 50 MG TABLET PO SCH (21:24)
[2021-06-02] MEDS: POTASSIUM CHLORIDE INJ 20 MEQ in LACTATED RINGERS 1,000 ML IV SCH ×2 (03:50→14:18)
[2021-06-02 06:13] LABS: Basophils % 0.3 % (0.0-0.8); Eosinophils # 0.7 10*3/uL (0.0-0.87); Hematocrit 36.2 VOL% (42.0-52.0); Immature Granulocytes % 2.4 %; Immature Granulocytes Absolute 0.28 #; Lymphocytes # 2.7 10*3/uL (1.4-4.0); Lymphocytes % 22.6 % (21.2-54.2); Mean Corpuscular HGB Conc 30.4 GM/DL (32-36); Mean Corpuscular Volume 87.4 FL (87-102); Mean Platelet Volume 10.6 FL (9.6-12.0); Monocytes % 11.6 % (1.7-12.7); Neutrophils % 57.1 % (38.7-73.9); Platelet Count 524 T/CUMM (130-400); Red Blood Count 4.14 MC/CUMM (3.8-5.5); Red Cell Distribution Width 18.1 % (9.3-17.3); White Blood Count 11.9 T/CUMM (4-12)
[2021-06-02 06:39] LABS: Osmolality,Calculated 275.5 MOS/KG (273-304); Potassium 4.9 MMOL/L (3.5-5.1)
[2021-06-02 06:41] LABS: Eosinophils 3 % (0-10); Hypochromasia 1+; Lymphocytes 16 % (20-55); Microcytosis 1+; Platelet Estimate Adequate; Segmented Neutrophils 73 % (50-85); Total Cells Counted 100
[2021-06-02] MEDS ORDERED: MAGNESIUM HYDROXIDE SUSP 30 ML UDCUP PO ONE (08:29)
[2021-06-02] MEDS: BACLOFEN 10 MG TABLET PO SCH ×3 (09:39→22:15)
[2021-06-02] MEDS: PREGABALIN 100 MG CAPSULE PO SCH ×3 (09:39→22:15)
[2021-06-02] MEDS: FERRIC GLUCONATE COMPLEX 125 MG in SODIUM CHLORIDE 0.9% 100 ML IV SCH (09:39)
[2021-06-02] MEDS: PIPERACILLIN/TAZOBACTAM 3,375 MG in SODIUM CHLORIDE 0.9% 100 ML IV SCH ×2 (09:40→17:14)
[2021-06-02] MEDS: PANTOPRAZOLE 40 MG TABLET PO SCH (09:41)
[2021-06-02] MEDS: DOCUSATE SODIUM 100 MG CAPSULE PO SCH ×2 (09:44→22:15)
[2021-06-02] MEDS: POLYETHYLENE GLYCOL POWDER 17 GM PACK PO SCH ×2 (09:45→09:50)
[2021-06-02] MEDS: COLLAGENASE OINT 30 GM TUBE TOP SCH (09:50)
[2021-06-02] MEDS: traZODone 50 MG TABLET PO SCH (22:15)
[2021-06-03] MEDS: POTASSIUM CHLORIDE INJ 20 MEQ in LACTATED RINGERS 1,000 ML IV SCH ×2 (01:00→12:53)
[2021-06-03] MEDS: PIPERACILLIN/TAZOBACTAM 3,375 MG in SODIUM CHLORIDE 0.9% 100 ML IV SCH ×3 (01:01→18:05)
[2021-06-03 06:14] LABS: Basophils % 0.4 % (0.0-0.8); Eosinophils # 0.6 10*3/uL (0.0-0.87); Eosinophils % 5.9 % (0.00-10.9); Hematocrit 35.4 VOL% (42.0-52.0); Hemoglobin 11.1 GM/DL (14.0-18.0); Immature Granulocytes Absolute 0.32 #; Lymphocytes # 2.7 10*3/uL (1.4-4.0); Lymphocytes % 25.6 % (21.2-54.2); Mean Corpuscular HGB Conc 31.4 GM/DL (32-36); Mean Platelet Volume 11.3 FL (9.6-12.0); Monocytes % 13.8 % (1.7-12.7); Neutrophils % 51.3 % (38.7-73.9); Platelet Count 505 T/CUMM (130-400); Red Blood Count 4.07 MC/CUMM (3.8-5.5); Red Cell Distribution Width 18.6 % (9.3-17.3); White Blood Count 10.7 T/CUMM (4-12)
[2021-06-03] MEDS: PREGABALIN 100 MG CAPSULE PO SCH ×2 (08:47→16:27)
[2021-06-03] MEDS: FERRIC GLUCONATE COMPLEX 125 MG in SODIUM CHLORIDE 0.9% 100 ML IV SCH (08:48)
[2021-06-03] MEDS: PANTOPRAZOLE 40 MG TABLET PO SCH (08:54)
[2021-06-03] MEDS: BACLOFEN 10 MG TABLET PO SCH ×2 (08:54→16:26)
[2021-06-03] MEDS: DOCUSATE SODIUM 100 MG CAPSULE PO SCH (08:54)
[2021-06-03] MEDS: COLLAGENASE OINT 30 GM TUBE TOP SCH (08:55)
[2021-06-03] MEDS: POLYETHYLENE GLYCOL POWDER 17 GM PACK PO SCH (08:55)
[2021-06-03 16:42] VITALS: BP 91/52
== END 2021-06-03 21:30 | disposition home health service (06) | DRG 663 ==
LOC: EDUNIT# → N.ED 09:42 → SUATTDRO 13:12 → N.EDINP 13:12 → N.3E 16:25
PROVIDERS: ADMIT Internal Medicine Geriatric Medicine; ATTEND Internal Medicine

== ENCOUNTER 2021-12-24 17:34 | Inpatient (IN) ==
[2021-12-24] MEDS ORDERED: SODIUM CHLORIDE 0.9% 1,000 ML IV STA ×2 (18:04→19:51)
[2021-12-24 18:31] LABS: Basophils % 0.3 % (0.0-0.8); Eosinophils # 0.1 10*3/uL (0.0-0.87); Eosinophils % 1.4 % (0.00-10.9); Hematocrit 33.4 VOL% (42.0-52.0); Hemoglobin 10.3 GM/DL (14.0-18.0); Immature Granulocytes % 0.5 %; Immature Granulocytes Absolute 0.04 #; Lymphocytes # 1.7 10*3/uL (1.4-4.0); Lymphocytes % 19.4 % (21.2-54.2); Mean Corpuscular HGB Conc 30.8 GM/DL (32-36); Mean Corpuscular Volume 83.3 FL (87-102); Monocytes # 0.6 10*3/uL (0.11-0.8); Monocytes % 6.5 % (1.7-12.7); Neutrophils % 71.9 % (38.7-73.9); Platelet Count 517 T/CUMM (130-400); Red Blood Count 4.01 MC/CUMM (3.8-5.5); Red Cell Distribution Width 16.5 % (9.3-17.3); White Blood Count 8.6 T/CUMM (4-12)
[2021-12-24 18:55] LABS: Alanine Aminotransferase 9 U/L (16-61); Albumin 2.5 G/DL (3.4-5.0); Alkaline Phosphatase 61 U/L (45-117); Aspartate Amino Transferase 8 U/L (0-37); Bilirubin,Total < 0.39 MG/DL (0.20-1.00); Blood Urea Nitrogen 14 MG/DL (7-18); Carbon Dioxide 24 MMOL/L (21-32); Chloride 110 MMOL/L (98-107); Glucose 87 MG/DL (74-106); Osmolality,Calculated 276.5 MOS/KG (273-304); Potassium 3.7 MMOL/L (3.5-5.1); Sodium 139 MMOL/L (136-145); Total Protein 8.2 G/DL (6.4-8.2)
[2021-12-24 20:32] LABS: Urine Color Yellow (Yellow)
[2021-12-24 20:33] LABS: Bilirubin,Urine Negative (Negative); Blood, Urine Moderate mg/dL (Negative); Glucose,Urine (UA) Negative (Negative); Ketones,Urine Negative (Negative); Nitrite,Urine Positive (Negative); Protein,Urine 30 mg/dL (Negative); Urine Appearance Slightly Hazy (Clear); Urine Specific Gravity 1.025 (1.001-1.035); Urine Urobilinogen 0.2 eU/dL (<2.0)
[2021-12-24 20:36] LABS: Bacteria,Urine Few /HPF (Few); Mucus,Urine Many /LPF (Occasional); RBC,Urine 74 /HPF (0-4)
[2021-12-24] MEDS ORDERED: PIPERACILLIN/TAZOBACTAM 3,375 MG in SODIUM CHLORIDE 0.9% 100 ML IV STA (20:43)
[2021-12-24] MEDS ORDERED: ZALEPLON 5 MG CAPSULE PO PRN (20:58)
[2021-12-24] MEDS ORDERED: GLUCAGON 1 MG VIAL IM PRN (20:58)
[2021-12-24] MEDS ORDERED: ONDANSETRON 4 MG/2 ML VIAL IV PRN (20:58)
[2021-12-24] MEDS ORDERED: BISACODYL 5 MG TABLET PO PRN (20:58)
[2021-12-24] MEDS ORDERED: hydrALAZINE 20 MG/1 ML VIAL IV PRN (20:58)
[2021-12-24] MEDS ORDERED: ACETAMINOPHEN 325 MG TABLET PO PRN (20:58)
[2021-12-24] MEDS ORDERED: diphenhydrAMINE CAP 25 MG CAPSULE PO PRN (20:58)
[2021-12-24] MEDS ORDERED: NICOTINE 21 MG/24 HR PATCH TRANSDERM PRN (20:58)
[2021-12-24] MEDS ORDERED: guaiFENesin/DM ER 600-30 MG TABLET PO PRN (20:58)
[2021-12-24] MEDS ORDERED: ENOXAPARIN 40 MG/0.4 ML SYRINGE SUBCUT SCH (21:00)
[2021-12-24] MEDS ORDERED: DEXTROSE 10% 250 ML BAG IV PRN (21:03)
[2021-12-24] MEDS: DEXTROSE 5% NACL 0.9% 1,000 ML IV SCH (22:35)
[2021-12-25 05:22] LABS: Basophils % 0.5 % (0.0-0.8); Eosinophils # 0.1 10*3/uL (0.0-0.87); Eosinophils % 1.4 % (0.00-10.9); Hematocrit 28.8 VOL% (42.0-52.0); Hemoglobin 8.9 GM/DL (14.0-18.0); Immature Granulocytes % 0.4 %; Immature Granulocytes Absolute 0.03 #; Lymphocytes # 2.2 10*3/uL (1.4-4.0); Lymphocytes % 28.4 % (21.2-54.2); Mean Corpuscular HGB Conc 30.9 GM/DL (32-36); Mean Corpuscular Volume 82.8 FL (87-102); Mean Platelet Volume 10.3 FL (9.6-12.0); Monocytes # 0.6 10*3/uL (0.11-0.8); Monocytes % 7.2 % (1.7-12.7); Neutrophils % 62.1 % (38.7-73.9); Platelet Count 409 T/CUMM (130-400); Red Blood Count 3.48 MC/CUMM (3.8-5.5); Red Cell Distribution Width 16.5 % (9.3-17.3); White Blood Count 7.7 T/CUMM (4-12)
[2021-12-25 05:31] LABS: Calcium 8.1 MG/DL (8.5-10.1); Osmolality,Calculated 281.3 MOS/KG (273-304); Potassium 3.1 MMOL/L (3.5-5.1)
[2021-12-25] MEDS ORDERED: PIPERACILLIN/TAZOBACTAM 3,375 MG in SODIUM CHLORIDE 0.9% 100 ML IV SCH (07:00)
[2021-12-25 07:09] LABS: Folate 10.12 NG/ML (5.38-24.0); Vitamin B12 309 PG/ML (211-911)
[2021-12-25 07:19] LABS: Basophils % 0.4 % (0.0-0.8); Eosinophils # 0.1 10*3/uL (0.0-0.87); Eosinophils % 1.7 % (0.00-10.9); Hematocrit 30.2 VOL% (42.0-52.0); Hemoglobin 9.5 GM/DL (14.0-18.0); Immature Granulocytes % 0.3 %; Immature Granulocytes Absolute 0.02 #; Lymphocytes # 1.7 10*3/uL (1.4-4.0); Lymphocytes % 21.4 % (21.2-54.2); Mean Corpuscular HGB Conc 31.5 GM/DL (32-36); Mean Corpuscular Volume 81.8 FL (87-102); Mean Platelet Volume 9.7 FL (9.6-12.0); Monocytes # 0.6 10*3/uL (0.11-0.8); Monocytes % 7.1 % (1.7-12.7); Neutrophils % 69.1 % (38.7-73.9); Platelet Count 443 T/CUMM (130-400); Red Blood Count 3.69 MC/CUMM (3.8-5.5); Red Cell Distribution Width 16.4 % (9.3-17.3); White Blood Count 7.9 T/CUMM (4-12)
[2021-12-25 08:43] LABS: Sedimentation Rate-Westergren 110 MM/HR (0-15)
[2021-12-25] MEDS ORDERED: LIDOCAINE 2% TOP JELLY 20 ML VIAL INTRAURETH ONE ×2 (08:47→09:00)
[2021-12-25 08:55] LABS: Hemoglobin A1 (Alkaline) 96.9 % (96.5-98.5); Hemoglobin A2 (Alkaline) 3.1 % (1.5-3.5)
[2021-12-25] MEDS ORDERED: POTASSIUM CHLORIDE 20 MEQ TABLET PO SCH (09:00)
[2021-12-25] MEDS ORDERED: PANTOPRAZOLE 40 MG TABLET PO SCH (09:00)
[2021-12-25] MEDS: DEXTROSE 5% NACL 0.9% 1,000 ML IV SCH (10:48)
[2021-12-25] MEDS ORDERED: tiZANidine 4 MG TABLET PO PRN ×2 (11:21)
[2021-12-25] MEDS ORDERED: ALBUTEROL/IPRATROPIUM 3 ML NEB RESP TX PRN (11:48)
[2021-12-25] MEDS ORDERED: LACTATED RINGERS 1,000 ML IV SCH (12:00)
[2021-12-25 14:47] VITALS: BP 143/98
[2021-12-25] MEDS ORDERED: MEROPENEM 500 MG in SODIUM CHLORIDE 0.9% 100 ML IV SCH (15:00)
[2021-12-25] MEDS ORDERED: PREGABALIN 100 MG CAPSULE PO SCH (15:00)
[2021-12-25] MEDS ORDERED: CHOLESTYRAMINE 4 GM PACK PO SCH (21:00)
[2021-12-25] MEDS ORDERED: traZODone 50 MG TABLET PO SCH (21:00)
[2021-12-26] MEDS ORDERED: NICOTINE 21 MG/24 HR PATCH TRANSDERM SCH (09:00)
== END 2021-12-25 15:27 | disposition left against medical advice (07) | DRG 463 ==
LOC: N.ED 17:34 → N.EDINP 20:58 → N.5E 22:18
PROVIDERS: ADMIT Family Medicine; ATTEND Family Medicine

== ENCOUNTER 2022-01-09 14:52 | Inpatient (IN) ==
[2022-01-09] MEDS ORDERED: SODIUM CHLORIDE 0.9% 1,000 ML IV STA (16:48)
[2022-01-09] MEDS ORDERED: ONDANSETRON 4 MG/2 ML VIAL IV STA (16:48)
[2022-01-09] MEDS ORDERED: cefTRIAXone 1,000 MG in SODIUM CHLORIDE 0.9% 100 ML IV STA (16:51)
[2022-01-09 16:52] LABS: Bacteria,Urine Many /HPF (Few); RBC,Urine 83 /HPF (0-4)
[2022-01-09 16:58] LABS: Urine Color Yellow (Yellow)
[2022-01-09 16:59] LABS: Urine Appearance Cloudy (Clear); Urine Specific Gravity 1.019 (1.001-1.035); Urine pH 5.5 (4.5-8.0)
[2022-01-09 17:00] LABS: Bilirubin,Urine Negative (Negative); Blood, Urine Small mg/dL (Negative); Glucose,Urine (UA) Negative (Negative); Ketones,Urine Negative (Negative); Nitrite,Urine Positive (Negative); Protein,Urine 30 mg/dL (Negative); Urine Urobilinogen 0.2 eU/dL (<2.0)
[2022-01-09 17:40] LABS: Basophils % 0.3 % (0.0-0.8); Eosinophils # 0.1 10*3/uL (0.0-0.87); Eosinophils % 0.9 % (0.00-10.9); Hematocrit 38.5 VOL% (42.0-52.0); Hemoglobin 11.9 GM/DL (14.0-18.0); Immature Granulocytes % 0.3 %; Immature Granulocytes Absolute 0.03 #; Lymphocytes # 1.9 10*3/uL (1.4-4.0); Lymphocytes % 17.6 % (21.2-54.2); Mean Corpuscular HGB Conc 30.9 GM/DL (32-36); Mean Corpuscular Volume 84.8 FL (87-102); Mean Platelet Volume 9.7 FL (9.6-12.0); Monocytes # 1.1 10*3/uL (0.11-0.8); Monocytes % 10.2 % (1.7-12.7); Neutrophils % 70.7 % (38.7-73.9); Platelet Count 394 T/CUMM (130-400); Red Blood Count 4.54 MC/CUMM (3.8-5.5); Red Cell Distribution Width 17.1 % (9.3-17.3); White Blood Count 10.8 T/CUMM (4-12)
[2022-01-09 17:59] LABS: Calcium 9.2 MG/DL (8.5-10.1); Osmolality,Calculated 278.3 MOS/KG (273-304); Potassium 4.3 MMOL/L (3.5-5.1)
[2022-01-09] MEDS ORDERED: ACETAMINOPHEN 325 MG TABLET PO PRN (18:36)
[2022-01-09] MEDS ORDERED: ONDANSETRON 4 MG/2 ML VIAL IV PRN (18:36)
[2022-01-09] MEDS ORDERED: hydrALAZINE 20 MG/1 ML VIAL IV PRN (18:36)
[2022-01-09] MEDS ORDERED: diphenhydrAMINE CAP 25 MG CAPSULE PO PRN (18:36)
[2022-01-09] MEDS ORDERED: GLUCAGON 1 MG VIAL IM PRN (18:36)
[2022-01-09] MEDS ORDERED: NICOTINE 21 MG/24 HR PATCH TRANSDERM PRN (18:36)
[2022-01-09] MEDS ORDERED: guaiFENesin/DM ER 600-30 MG TABLET PO PRN (18:36)
[2022-01-09] MEDS ORDERED: MORPHINE 2 MG/1 ML SYRINGE IV PRN (18:36)
[2022-01-09] MEDS ORDERED: DEXTROSE 10% 250 ML BAG IV PRN (19:10)
[2022-01-09] MEDS: SODIUM CHLORIDE 0.9% 1,000 ML IV SCH (20:30)
[2022-01-09] MEDS: metroNIDAZOLE INJ 500 MG/100 ML PREMIX IV SCH (20:30)
[2022-01-09] MEDS: HEPARIN 5,000 UNIT/1 ML VIAL SUBCUT SCH (21:00)
[2022-01-09] MEDS: cefTRIAXone 1,000 MG in SODIUM CHLORIDE 0.9% 100 ML IV SCH (21:30)
[2022-01-09] MEDS: VANCOMYCIN INJ 750 MG in SODIUM CHLORIDE 0.9% 250 ML IV SCH (22:25)
[2022-01-10 03:45] LABS: Basophils % 0.3 % (0.0-0.8); Eosinophils # 0.2 10*3/uL (0.0-0.87); Eosinophils % 1.9 % (0.00-10.9); Hematocrit 40.1 VOL% (42.0-52.0); Hemoglobin 12.6 GM/DL (14.0-18.0); Immature Granulocytes % 0.3 %; Immature Granulocytes Absolute 0.03 #; Lymphocytes # 2.4 10*3/uL (1.4-4.0); Lymphocytes % 23.6 % (21.2-54.2); Mean Corpuscular HGB Conc 31.4 GM/DL (32-36); Mean Corpuscular Volume 83.4 FL (87-102); Mean Platelet Volume 9.4 FL (9.6-12.0); Monocytes # 0.9 10*3/uL (0.11-0.8); Monocytes % 8.4 % (1.7-12.7); Neutrophils % 65.5 % (38.7-73.9); Platelet Count 402 T/CUMM (130-400); Red Blood Count 4.81 MC/CUMM (3.8-5.5); Red Cell Distribution Width 16.6 % (9.3-17.3); White Blood Count 10.3 T/CUMM (4-12)
[2022-01-10] MEDS: metroNIDAZOLE INJ 500 MG/100 ML PREMIX IV SCH ×3 (03:59→20:00)
[2022-01-10 04:06] LABS: Osmolality,Calculated 273.5 MOS/KG (273-304); Potassium 3.7 MMOL/L (3.5-5.1)
[2022-01-10] MEDS: PANTOPRAZOLE 40 MG TABLET PO SCH (09:00)
[2022-01-10] MEDS: cefTRIAXone 1,000 MG in SODIUM CHLORIDE 0.9% 100 ML IV SCH ×2 (09:00→21:20)
[2022-01-10] MEDS: HEPARIN 5,000 UNIT/1 ML VIAL SUBCUT SCH ×2 (09:05→21:05)
[2022-01-10] MEDS: VANCOMYCIN INJ 750 MG in SODIUM CHLORIDE 0.9% 250 ML IV SCH ×2 (09:40→21:10)
[2022-01-10] MEDS: SODIUM CHLORIDE 0.9% 1,000 ML IV SCH (13:58)
[2022-01-10] MEDS ORDERED: tiZANidine 4 MG TABLET PO PRN (15:22)
[2022-01-10 15:32] LABS: % Iron Saturation 19.3 % (18-50)
[2022-01-10 17:12] LABS: Folate 9.31 NG/ML (5.38-24.0)
[2022-01-10] MEDS: PREGABALIN 100 MG CAPSULE PO SCH (21:15)
[2022-01-10] MEDS: BACLOFEN 10 MG TABLET PO SCH (21:15)
[2022-01-10] MEDS: traZODone 50 MG TABLET PO SCH (21:15)
[2022-01-11] MEDS: metroNIDAZOLE INJ 500 MG/100 ML PREMIX IV SCH ×3 (04:33→19:33)
[2022-01-11] MEDS: PANTOPRAZOLE 40 MG TABLET PO SCH (06:19)
[2022-01-11 06:28] LABS: Basophils % 0.4 % (0.0-0.8); Eosinophils # 0.2 10*3/uL (0.0-0.87); Eosinophils % 1.8 % (0.00-10.9); Hematocrit 32.9 VOL% (42.0-52.0); Hemoglobin 10.2 GM/DL (14.0-18.0); Immature Granulocytes % 0.2 %; Immature Granulocytes Absolute 0.02 #; Mean Corpuscular Volume 83.5 FL (87-102); Mean Platelet Volume 10.2 FL (9.6-12.0); Monocytes % 10.8 % (1.7-12.7); Neutrophils % 64.8 % (38.7-73.9); Platelet Count 398 T/CUMM (130-400); Red Blood Count 3.94 MC/CUMM (3.8-5.5); Red Cell Distribution Width 16.6 % (9.3-17.3)
[2022-01-11 06:42] LABS: Calcium 8.2 MG/DL (8.5-10.1); Osmolality,Calculated 280.4 MOS/KG (273-304); Potassium 3.1 MMOL/L (3.5-5.1)
[2022-01-11] MEDS: HEPARIN 5,000 UNIT/1 ML VIAL SUBCUT SCH ×2 (09:09→20:41)
[2022-01-11] MEDS: PREGABALIN 100 MG CAPSULE PO SCH ×3 (09:09→20:41)
[2022-01-11] MEDS: BACLOFEN 10 MG TABLET PO SCH ×3 (09:10→20:41)
[2022-01-11] MEDS: cefTRIAXone 1,000 MG in SODIUM CHLORIDE 0.9% 100 ML IV SCH ×2 (09:20→20:40)
[2022-01-11] MEDS: ALPRAZolam 0.5 MG TABLET PO PRN ×2 (09:20→20:41)
[2022-01-11] MEDS ORDERED: POTASSIUM CHLORIDE 20 MEQ TABLET PO ONE (10:04)
[2022-01-11] MEDS: SODIUM CHLORIDE 0.9% 1,000 ML IV SCH ×3 (11:14→21:55)
[2022-01-11] MEDS: VANCOMYCIN INJ 750 MG in SODIUM CHLORIDE 0.9% 250 ML IV SCH ×2 (11:14→23:35)
[2022-01-11] MEDS: traZODone 50 MG TABLET PO SCH (20:40)
[2022-01-11] MEDS: ZALEPLON 5 MG CAPSULE PO PRN (20:41)
[2022-01-12] MEDS: metroNIDAZOLE INJ 500 MG/100 ML PREMIX IV SCH ×2 (04:30→13:06)
[2022-01-12] MEDS: PANTOPRAZOLE 40 MG TABLET PO SCH (05:35)
[2022-01-12 06:12] LABS: Basophils # 0.1 10*3/uL (0.0-0.2); Basophils % 0.8 % (0.0-0.8); Eosinophils # 0.3 10*3/uL (0.0-0.87); Eosinophils % 4.2 % (0.00-10.9); Hematocrit 30.3 VOL% (42.0-52.0); Hemoglobin 9.4 GM/DL (14.0-18.0); Immature Granulocytes % 0.3 %; Immature Granulocytes Absolute 0.02 #; Lymphocytes # 2.1 10*3/uL (1.4-4.0); Lymphocytes % 31.7 % (21.2-54.2); Mean Corpuscular Volume 83.9 FL (87-102); Mean Platelet Volume 10.8 FL (9.6-12.0); Monocytes # 0.7 10*3/uL (0.11-0.8); Monocytes % 10.4 % (1.7-12.7); Neutrophils % 52.6 % (38.7-73.9); Platelet Count 363 T/CUMM (130-400); Red Blood Count 3.61 MC/CUMM (3.8-5.5); Red Cell Distribution Width 16.8 % (9.3-17.3); White Blood Count 6.6 T/CUMM (4-12)
[2022-01-12 06:24] LABS: Osmolality,Calculated 282.1 MOS/KG (273-304); Potassium 3.6 MMOL/L (3.5-5.1)
[2022-01-12] MEDS ORDERED: VANCOMYCIN INJ 750 MG in SODIUM CHLORIDE 0.9% 250 ML IV SCH (08:00)
[2022-01-12] MEDS: BACLOFEN 10 MG TABLET PO SCH ×3 (08:22→21:26)
[2022-01-12] MEDS: PREGABALIN 100 MG CAPSULE PO SCH ×3 (08:22→21:26)
[2022-01-12] MEDS: HEPARIN 5,000 UNIT/1 ML VIAL SUBCUT SCH ×2 (08:22→21:26)
[2022-01-12] MEDS: cefTRIAXone 1,000 MG in SODIUM CHLORIDE 0.9% 100 ML IV SCH ×2 (11:25→21:26)
[2022-01-12] MEDS: SODIUM CHLORIDE 0.9% 1,000 ML IV SCH ×2 (15:48→23:58)
[2022-01-12] MEDS: ZALEPLON 5 MG CAPSULE PO PRN (21:25)
[2022-01-12] MEDS: ALPRAZolam 0.5 MG TABLET PO PRN (21:26)
[2022-01-12] MEDS: traZODone 50 MG TABLET PO SCH (21:26)
[2022-01-13] MEDS: SODIUM CHLORIDE 0.9% 1,000 ML IV SCH ×2 (04:18→19:11)
[2022-01-13] MEDS: PANTOPRAZOLE 40 MG TABLET PO SCH (05:52)
[2022-01-13 06:21] LABS: Basophils % 0.5 % (0.0-0.8); Eosinophils # 0.3 10*3/uL (0.0-0.87); Eosinophils % 4.9 % (0.00-10.9); Hematocrit 32.9 VOL% (42.0-52.0); Hemoglobin 10.3 GM/DL (14.0-18.0); Immature Granulocytes % 0.3 %; Immature Granulocytes Absolute 0.02 #; Lymphocytes # 2.9 10*3/uL (1.4-4.0); Lymphocytes % 43.9 % (21.2-54.2); Mean Corpuscular HGB Conc 31.3 GM/DL (32-36); Mean Corpuscular Volume 84.1 FL (87-102); Mean Platelet Volume 10.1 FL (9.6-12.0); Monocytes # 0.7 10*3/uL (0.11-0.8); Monocytes % 11.4 % (1.7-12.7); Platelet Count 370 T/CUMM (130-400); Red Blood Count 3.91 MC/CUMM (3.8-5.5); Red Cell Distribution Width 17.2 % (9.3-17.3); White Blood Count 6.5 T/CUMM (4-12)
[2022-01-13 06:39] LABS: Calcium 8.2 MG/DL (8.5-10.1); Osmolality,Calculated 281.1 MOS/KG (273-304); Potassium 3.8 MMOL/L (3.5-5.1)
[2022-01-13] MEDS: MULTIVITAMIN (CENTRUM) TABLET PO SCH (10:09)
[2022-01-13] MEDS: CHOLECALCIFEROL 1,000 UNIT TABLET PO SCH (10:10)
[2022-01-13] MEDS: PREGABALIN 100 MG CAPSULE PO SCH ×3 (10:10→21:20)
[2022-01-13] MEDS: BACLOFEN 10 MG TABLET PO SCH ×3 (10:10→21:20)
[2022-01-13] MEDS: HEPARIN 5,000 UNIT/1 ML VIAL SUBCUT SCH ×2 (10:11→21:20)
[2022-01-13] MEDS: cefTRIAXone 1,000 MG in SODIUM CHLORIDE 0.9% 100 ML IV SCH (10:17)
[2022-01-13] MEDS ORDERED: metroNIDAZOLE 500 MG TABLET PO SCH (12:00)
[2022-01-13] MEDS: metroNIDAZOLE 500 MG TABLET PO SCH (17:39)
[2022-01-13] MEDS: traZODone 50 MG TABLET PO SCH (21:20)
[2022-01-13] MEDS: ZALEPLON 5 MG CAPSULE PO PRN (21:21)
[2022-01-13] MEDS: ALPRAZolam 0.5 MG TABLET PO PRN (21:21)
[2022-01-14] MEDS: SODIUM CHLORIDE 0.9% 1,000 ML IV SCH ×2 (00:31→14:06)
[2022-01-14] MEDS: PANTOPRAZOLE 40 MG TABLET PO SCH (05:51)
[2022-01-14 08:18] VITALS: BP 136/89
[2022-01-14] MEDS: MULTIVITAMIN (CENTRUM) TABLET PO SCH (08:51)
[2022-01-14] MEDS: ALPRAZolam 0.5 MG TABLET PO PRN (08:51)
[2022-01-14] MEDS: metroNIDAZOLE 500 MG TABLET PO SCH ×2 (08:51→13:01)
[2022-01-14] MEDS: BACLOFEN 10 MG TABLET PO SCH ×2 (08:51→16:17)
[2022-01-14] MEDS: PREGABALIN 100 MG CAPSULE PO SCH ×2 (08:51→16:17)
[2022-01-14] MEDS: CHOLECALCIFEROL 1,000 UNIT TABLET PO SCH (08:51)
[2022-01-14] MEDS: HEPARIN 5,000 UNIT/1 ML VIAL SUBCUT SCH (08:52)
[2022-01-14] MEDS ORDERED: cefTRIAXone 1,000 MG in SODIUM CHLORIDE 0.9% 100 ML IV SCH (09:00)
[2022-01-14] MEDS ORDERED: FERROUS SULFATE 325 MG TABLET PO SCH (09:00)
== END 2022-01-14 15:24 | disposition home health service (06) | DRG 463 ==
LOC: EDUNIT# → N.ED 14:52 → N.EDINP 18:36 → N.3E 01-10 23:25
PROVIDERS: ADMIT Internal Medicine; ATTEND Internal Medicine

== ENCOUNTER 2022-02-03 15:35 | Observation (INO) ==
[2022-02-03 16:29] LABS: Bacteria,Urine Occasional /HPF (Few); Bilirubin,Urine Negative (Negative); Blood, Urine Small mg/dL (Negative); Glucose,Urine (UA) Negative (Negative); Ketones,Urine Negative (Negative); Mucus,Urine Occasional /LPF (Occasional); Nitrite,Urine Positive (Negative); Protein,Urine 30 mg/dL (Negative); RBC,Urine 23 /HPF (0-4); Squamous Epithelial Cell,Urine Occasional /HPF (0-10); Urine Appearance Clear (Clear); Urine Color Yellow (Yellow)
[2022-02-03 16:31] LABS: Basophils % 0.4 % (0.0-0.8); Eosinophils # 0.1 10*3/uL (0.0-0.87); Eosinophils % 1.4 % (0.00-10.9); Hematocrit 39.7 VOL% (42.0-52.0); Hemoglobin 12.6 GM/DL (14.0-18.0); Immature Granulocytes % 0.3 %; Immature Granulocytes Absolute 0.03 #; Mean Corpuscular HGB Conc 31.7 GM/DL (32-36); Mean Corpuscular Volume 85.6 FL (87-102); Mean Platelet Volume 10.7 FL (9.6-12.0); Monocytes % 10.6 % (1.7-12.7); Neutrophils % 65.3 % (38.7-73.9); Platelet Count 351 T/CUMM (130-400); Red Blood Count 4.64 MC/CUMM (3.8-5.5); Red Cell Distribution Width 15.9 % (9.3-17.3)
[2022-02-03 16:38] LABS: Alanine Aminotransferase 12 U/L (16-61); Albumin 2.8 G/DL (3.4-5.0); Alkaline Phosphatase 58 U/L (45-117); Aspartate Amino Transferase 9 U/L (0-37); Bilirubin,Total < 0.39 MG/DL (0.20-1.00); Blood Urea Nitrogen 21 MG/DL (7-18); Carbon Dioxide 29 MMOL/L (21-32); Chloride 101 MMOL/L (98-107); Glucose 95 MG/DL (74-106); Potassium 3.8 MMOL/L (3.5-5.1); Sodium 136 MMOL/L (136-145); Total Protein 8.4 G/DL (6.4-8.2)
[2022-02-03] MEDS ORDERED: CIPROFLOXACIN INJ 400 MG/200 ML PREMIX IV STA (16:40)
[2022-02-03] MEDS ORDERED: SODIUM CHLORIDE 0.9% 1,000 ML IV STA (16:41)
[2022-02-03 18:18] LABS: Barbiturates Screen,Urine Negative (Negative); Benzodiazepines Screen,Urine Negative (Negative); Cannabinoid Screen,Urine Positive (Negative); Opiate Screen,Urine Negative (Negative); Phencyclidine Screen,Urine Negative (Negative)
[2022-02-03] MEDS ORDERED: CALCIUM CARBONATE CHEW 500 MG TABLET PO PRN (18:32)
[2022-02-03] MEDS ORDERED: ONDANSETRON 4 MG/2 ML VIAL IV PRN (18:32)
[2022-02-03] MEDS ORDERED: BISACODYL 5 MG TABLET PO PRN (18:32)
[2022-02-03] MEDS ORDERED: ACETAMINOPHEN 325 MG TABLET PO PRN (18:32)
[2022-02-03] MEDS: LACTATED RINGERS 1,000 ML IV SCH (23:00)
[2022-02-03] MEDS: ENOXAPARIN 40 MG/0.4 ML SYRINGE SUBCUT SCH (23:11)
[2022-02-04 06:11] LABS: Basophils % 0.5 % (0.0-0.8); Eosinophils # 0.2 10*3/uL (0.0-0.87); Hematocrit 40.2 VOL% (42.0-52.0); Hemoglobin 12.8 GM/DL (14.0-18.0); Immature Granulocytes % 0.3 %; Immature Granulocytes Absolute 0.02 #; Lymphocytes # 2.3 10*3/uL (1.4-4.0); Lymphocytes % 28.9 % (21.2-54.2); Mean Corpuscular HGB Conc 31.8 GM/DL (32-36); Mean Corpuscular Volume 85.5 FL (87-102); Mean Platelet Volume 10.4 FL (9.6-12.0); Monocytes # 0.7 10*3/uL (0.11-0.8); Monocytes % 8.4 % (1.7-12.7); Neutrophils % 59.9 % (38.7-73.9); Platelet Count 323 T/CUMM (130-400); Red Cell Distribution Width 15.3 % (9.3-17.3)
[2022-02-04 06:31] LABS: Osmolality,Calculated 272.7 MOS/KG (273-304); Potassium 3.7 MMOL/L (3.5-5.1)
[2022-02-04] MEDS: LACTATED RINGERS 1,000 ML IV SCH ×2 (08:06→21:05)
[2022-02-04] MEDS: cefTRIAXone 1,000 MG in SODIUM CHLORIDE 0.9% 100 ML IV SCH (08:06)
[2022-02-04] MEDS ORDERED: tiZANidine 4 MG TABLET PO PRN (20:34)
[2022-02-04] MEDS ORDERED: ALPRAZolam 0.25 MG TABLET PO PRN (20:36)
[2022-02-04] MEDS ORDERED: hydrALAZINE 20 MG/1 ML VIAL IV PRN (20:38)
[2022-02-04] MEDS: PREGABALIN 100 MG CAPSULE PO SCH (21:03)
[2022-02-04] MEDS: ENOXAPARIN 40 MG/0.4 ML SYRINGE SUBCUT SCH (21:03)
[2022-02-05] MEDS: LACTATED RINGERS 1,000 ML IV SCH (02:11)
[2022-02-05] MEDS: cefTRIAXone 1,000 MG in SODIUM CHLORIDE 0.9% 100 ML IV SCH (08:53)
[2022-02-05] MEDS: PREGABALIN 100 MG CAPSULE PO SCH ×2 (08:53→14:40)
[2022-02-05 17:14] VITALS: BP 112/74
[2022-02-05] MEDS ORDERED: traZODone 50 MG TABLET PO SCH (21:00)
[2022-02-06] MEDS ORDERED: SULFAMETHOX/TRIMETHOPRIM 800-160 MG TABLET PO SCH (09:00)
== END 2022-02-05 18:03 | disposition home or self-care (01) ==
LOC: N.ED 15:35 → N.EDINP 18:33 → INTOOBSV 18:33 → N.EDINP 20:36 → N.3E 20:39
PROVIDERS: ADMIT Emergency Medicine; ATTEND Emergency Medicine

== ENCOUNTER 2022-07-11 08:15 | Observation (INO) ==
[2022-07-11] MEDS ORDERED: SODIUM CHLORIDE 0.9% 1,000 ML IV STA (08:43)
[2022-07-11 09:19] LABS: Basophils % 0.2 % (0.0-0.8); Eosinophils # 0.1 10*3/uL (0.0-0.87); Eosinophils % 0.4 % (0.00-10.9); Hematocrit 43.2 VOL% (42.0-52.0); Hemoglobin 13.8 GM/DL (14.0-18.0); Immature Granulocytes % 0.4 %; Immature Granulocytes Absolute 0.05 #; Lymphocytes # 0.9 10*3/uL (1.4-4.0); Lymphocytes % 6.4 % (21.2-54.2); Mean Corpuscular HGB Conc 31.9 GM/DL (32-36); Mean Corpuscular Volume 84.2 FL (87-102); Mean Platelet Volume 11.2 FL (9.6-12.0); Monocytes % 7.1 % (1.7-12.7); Neutrophils % 85.5 % (38.7-73.9); Platelet Count 394 T/CUMM (130-400); Red Blood Count 5.13 MC/CUMM (3.8-5.5); Red Cell Distribution Width 13.8 % (9.3-17.3); White Blood Count 14.2 T/CUMM (4-12)
[2022-07-11 09:40] LABS: Alanine Aminotransferase 19 U/L (16-61); Albumin 3.3 G/DL (3.4-5.0); Alkaline Phosphatase 78 U/L (45-117); Aspartate Amino Transferase 12 U/L (0-37); Bilirubin,Total < 0.39 MG/DL (0.20-1.00); Blood Urea Nitrogen 14 MG/DL (7-18); Calcium 9.4 MG/DL (8.5-10.1); Carbon Dioxide 23 MMOL/L (21-32); Chloride 114 MMOL/L (98-107); Glucose 121 MG/DL (74-106); Potassium 3.7 MMOL/L (3.5-5.1); Sodium 143 MMOL/L (136-145); Total Protein 9.2 G/DL (6.4-8.2)
[2022-07-11] MEDS ORDERED: LEVOFLOXACIN INJ 500 MG/100 ML PREMIX IV STA (10:16)
[2022-07-11 10:34] LABS: Mucus,Urine Occasional /LPF (Occasional); RBC,Urine 385 /HPF (0-4)
[2022-07-11 10:40] LABS: Urine Appearance Turbid (Clear); Urine Color Yellow (Yellow); Urine Specific Gravity 1.015 (1.001-1.035); Urine pH 7.5 (4.5-8.0)
[2022-07-11 10:41] LABS: Bilirubin,Urine Small mg/dL (Negative); Blood, Urine Large mg/dL (Negative); Glucose,Urine (UA) Negative (Negative); Ketones,Urine 15 mg/dL (Negative); Nitrite,Urine Positive (Negative); Protein,Urine 300 mg/dL (Negative); Urine Urobilinogen 0.2 eU/dL (<2.0)
[2022-07-11] MEDS ORDERED: hydrALAZINE 20 MG/1 ML VIAL IV PRN (12:48)
[2022-07-11] MEDS ORDERED: ACETAMINOPHEN 325 MG TABLET PO PRN (12:48)
[2022-07-11] MEDS ORDERED: ONDANSETRON 4 MG/2 ML VIAL IV PRN (12:48)
[2022-07-11] MEDS ORDERED: tiZANidine 4 MG TABLET PO PRN (12:58)
[2022-07-11] MEDS ORDERED: ALPRAZolam 0.25 MG TABLET PO PRN (12:58)
[2022-07-11 13:19] LABS: % Iron Saturation 7.6 % (18-50)
[2022-07-11 14:14] LABS: Folate 15.08 NG/ML (5.38-24.0)
[2022-07-11] MEDS: SODIUM CHLORIDE 0.9% 1,000 ML IV SCH (14:45)
[2022-07-11] MEDS: cefTRIAXone 1,000 MG in SODIUM CHLORIDE 0.9% 100 ML IV SCH (14:45)
[2022-07-11] MEDS ORDERED: AZITHROMYCIN INJ 1,000 MG in SODIUM CHLORIDE 0.9% 500 ML IV ONE (16:00)
[2022-07-11] MEDS ORDERED: INFLUENZA VIRUS VACCINE 0.5 ML SYRINGE IM ONE (16:05)
[2022-07-11] MEDS: PREGABALIN 100 MG CAPSULE PO SCH ×2 (16:39→20:30)
[2022-07-11] MEDS: LINEZOLID INJ 600 MG/300 ML PREMIX IV SCH (20:33)
[2022-07-11] MEDS: traZODone 50 MG TABLET PO SCH (20:37)
[2022-07-11] MEDS: HEPARIN 5,000 UNIT/1 ML VIAL SUBCUT SCH (20:37)
[2022-07-12 05:11] LABS: Basophils % 0.3 % (0.0-0.8); Eosinophils # 0.3 10*3/uL (0.0-0.87); Eosinophils % 3.5 % (0.00-10.9); Hematocrit 32.1 VOL% (42.0-52.0); Hemoglobin 10.3 GM/DL (14.0-18.0); Immature Granulocytes % 0.3 %; Immature Granulocytes Absolute 0.03 #; Lymphocytes # 2.5 10*3/uL (1.4-4.0); Lymphocytes % 28.4 % (21.2-54.2); Mean Corpuscular HGB Conc 32.1 GM/DL (32-36); Mean Corpuscular Volume 84.3 FL (87-102); Mean Platelet Volume 11.7 FL (9.6-12.0); Monocytes # 0.8 10*3/uL (0.11-0.8); Monocytes % 9.3 % (1.7-12.7); Neutrophils % 58.2 % (38.7-73.9); Platelet Count 309 T/CUMM (130-400); Red Blood Count 3.81 MC/CUMM (3.8-5.5); White Blood Count 8.6 T/CUMM (4-12)
[2022-07-12 05:35] LABS: Alanine Aminotransferase 12 U/L (16-61); Albumin 2.4 G/DL (3.4-5.0); Alkaline Phosphatase 54 U/L (45-117); Aspartate Amino Transferase 9 U/L (0-37); Bilirubin,Total < 0.39 MG/DL (0.20-1.00); Blood Urea Nitrogen 9 MG/DL (7-18); Calcium 8.2 MG/DL (8.5-10.1); Carbon Dioxide 26 MMOL/L (21-32); Chloride 110 MMOL/L (98-107); Cholesterol 91 MG/DL (50-200); Glucose 74 MG/DL (74-106); HDL Cholesterol 37 MG/DL (40-60); Osmolality,Calculated 276.4 MOS/KG (273-304); Potassium 3.7 MMOL/L (3.5-5.1); Risk Ratio 2.46; Sodium 140 MMOL/L (136-145); Thyroid Stimulating Hormone 0.668 uIU/ml (0.358-3.74); Total Protein 6.7 G/DL (6.4-8.2); Triglycerides 52 MG/DL (2-150); VLDL Cholesterol 10.4 MG/DL
[2022-07-12] MEDS: LINEZOLID INJ 600 MG/300 ML PREMIX IV SCH ×2 (07:00→19:49)
[2022-07-12] MEDS: SODIUM CHLORIDE 0.9% 1,000 ML IV SCH (07:17)
[2022-07-12] MEDS: PREGABALIN 100 MG CAPSULE PO SCH ×3 (09:51→21:19)
[2022-07-12] MEDS: MULTIVITAMIN (CENTRUM) TABLET PO SCH (09:51)
[2022-07-12] MEDS: PANTOPRAZOLE 40 MG TABLET PO SCH (09:51)
[2022-07-12] MEDS: HEPARIN 5,000 UNIT/1 ML VIAL SUBCUT SCH ×2 (09:52→22:26)
[2022-07-12] MEDS: cefTRIAXone 1,000 MG in SODIUM CHLORIDE 0.9% 100 ML IV SCH (13:15)
[2022-07-12] MEDS: FERRIC GLUCONATE COMPLEX 125 MG in SODIUM CHLORIDE 0.9% 100 ML IV SCH (15:34)
[2022-07-12] MEDS: LACTATED RINGERS 1,000 ML IV SCH (15:34)
[2022-07-12] MEDS: traZODone 50 MG TABLET PO SCH (21:19)
[2022-07-12] MEDS: CHOLECALCIFEROL 5,000 UNIT TABLET PO SCH (21:29)
[2022-07-13 06:03] LABS: Basophils % 0.4 % (0.0-0.8); Eosinophils # 0.3 10*3/uL (0.0-0.87); Eosinophils % 3.7 % (0.00-10.9); Hematocrit 34.4 VOL% (42.0-52.0); Immature Granulocytes % 0.4 %; Immature Granulocytes Absolute 0.03 #; Lymphocytes # 2.5 10*3/uL (1.4-4.0); Lymphocytes % 29.8 % (21.2-54.2); Mean Corpuscular Volume 83.1 FL (87-102); Mean Platelet Volume 11.4 FL (9.6-12.0); Monocytes # 0.8 10*3/uL (0.11-0.8); Monocytes % 9.8 % (1.7-12.7); Neutrophils % 55.9 % (38.7-73.9); Platelet Count 340 T/CUMM (130-400); Red Blood Count 4.14 MC/CUMM (3.8-5.5); Red Cell Distribution Width 13.9 % (9.3-17.3); White Blood Count 8.3 T/CUMM (4-12)
[2022-07-13 06:12] LABS: Calcium 8.7 MG/DL (8.5-10.1); Osmolality,Calculated 280.1 MOS/KG (273-304); Potassium 3.7 MMOL/L (3.5-5.1)
[2022-07-13] MEDS: LACTATED RINGERS 1,000 ML IV SCH ×3 (06:45→22:20)
[2022-07-13] MEDS: LINEZOLID INJ 600 MG/300 ML PREMIX IV SCH ×2 (08:15→18:10)
[2022-07-13] MEDS: CHOLECALCIFEROL 5,000 UNIT TABLET PO SCH ×2 (08:16→20:51)
[2022-07-13] MEDS: PREGABALIN 100 MG CAPSULE PO SCH ×3 (08:16→20:50)
[2022-07-13] MEDS: PANTOPRAZOLE 40 MG TABLET PO SCH (08:17)
[2022-07-13] MEDS: MULTIVITAMIN (CENTRUM) TABLET PO SCH (08:17)
[2022-07-13] MEDS: HEPARIN 5,000 UNIT/1 ML VIAL SUBCUT SCH ×2 (08:18→20:50)
[2022-07-13] MEDS: FERRIC GLUCONATE COMPLEX 125 MG in SODIUM CHLORIDE 0.9% 100 ML IV SCH (09:26)
[2022-07-13] MEDS: cefTRIAXone 1,000 MG in SODIUM CHLORIDE 0.9% 100 ML IV SCH (14:45)
[2022-07-13] MEDS: traZODone 50 MG TABLET PO SCH (20:51)
[2022-07-13] MEDS: ZINC OXIDE PASTE 113 GM TUBE TOP SCH (23:45)
[2022-07-14 05:16] LABS: Basophils % 0.6 % (0.0-0.8); Eosinophils # 0.3 10*3/uL (0.0-0.87); Eosinophils % 3.9 % (0.00-10.9); Hematocrit 33.9 VOL% (42.0-52.0); Hemoglobin 10.9 GM/DL (14.0-18.0); Immature Granulocytes % 0.3 %; Immature Granulocytes Absolute 0.02 #; Lymphocytes # 2.8 10*3/uL (1.4-4.0); Lymphocytes % 39.8 % (21.2-54.2); Mean Corpuscular HGB Conc 32.2 GM/DL (32-36); Mean Corpuscular Volume 84.3 FL (87-102); Monocytes # 0.7 10*3/uL (0.11-0.8); Monocytes % 10.6 % (1.7-12.7); Neutrophils % 44.8 % (38.7-73.9); Platelet Count 361 T/CUMM (130-400); Red Blood Count 4.02 MC/CUMM (3.8-5.5); Red Cell Distribution Width 13.9 % (9.3-17.3); White Blood Count 6.9 T/CUMM (4-12)
[2022-07-14 05:41] LABS: Calcium 8.4 MG/DL (8.5-10.1); Osmolality,Calculated 280.1 MOS/KG (273-304); Potassium 3.5 MMOL/L (3.5-5.1)
[2022-07-14] MEDS: LACTATED RINGERS 1,000 ML IV SCH (07:05)
[2022-07-14] MEDS: LINEZOLID INJ 600 MG/300 ML PREMIX IV SCH (07:06)
[2022-07-14] MEDS: PREGABALIN 100 MG CAPSULE PO SCH (09:05)
[2022-07-14] MEDS: MULTIVITAMIN (CENTRUM) TABLET PO SCH (09:05)
[2022-07-14] MEDS: CHOLECALCIFEROL 5,000 UNIT TABLET PO SCH (09:05)
[2022-07-14] MEDS: PANTOPRAZOLE 40 MG TABLET PO SCH (09:05)
[2022-07-14] MEDS: HEPARIN 5,000 UNIT/1 ML VIAL SUBCUT SCH (09:06)
[2022-07-14] MEDS: ZINC OXIDE PASTE 113 GM TUBE TOP SCH (09:08)
[2022-07-14 11:40] VITALS: BP 114/65
[2022-07-14] MEDS: FERRIC GLUCONATE COMPLEX 125 MG in SODIUM CHLORIDE 0.9% 100 ML IV SCH (12:10)
[2022-07-14] MEDS: cefTRIAXone 1,000 MG in SODIUM CHLORIDE 0.9% 100 ML IV SCH (13:06)
[2022-07-15] MEDS ORDERED: LEVOFLOXACIN 500 MG TABLET PO SCH (09:00)
== END 2022-07-14 13:59 | disposition home health service (06) ==
LOC: EDBD → EDUNIT# → N.ED 08:15 → SUATTDRO 12:48 → N.EDINP 12:48 → INTOOBSV 12:48 → N.EDINP 14:20 → N.3E 14:48
PROVIDERS: ADMIT Internal Medicine; ATTEND Internal Medicine

== ENCOUNTER 2022-09-28 17:21 | Inpatient (IN) ==
[2022-09-28 18:56] LABS: Basophils % 0.4 % (0.0-0.8); Eosinophils % 0.3 % (0.00-10.9); Hematocrit 40.4 VOL% (42.0-52.0); Hemoglobin 12.9 GM/DL (14.0-18.0); Immature Granulocytes % 0.4 %; Immature Granulocytes Absolute 0.04 #; Lymphocytes # 1.3 10*3/uL (1.4-4.0); Lymphocytes % 12.3 % (21.2-54.2); Mean Corpuscular HGB Conc 31.9 GM/DL (32-36); Mean Corpuscular Volume 83.5 FL (87-102); Mean Platelet Volume 11.2 FL (9.6-12.0); Monocytes # 0.9 10*3/uL (0.11-0.8); Monocytes % 8.3 % (1.7-12.7); Neutrophils % 78.3 % (38.7-73.9); Platelet Count 388 T/CUMM (130-400); Red Blood Count 4.84 MC/CUMM (3.8-5.5); Red Cell Distribution Width 17.5 % (9.3-17.3); White Blood Count 10.51 T/CUMM (4-12)
[2022-09-28 19:07] LABS: Blood Urea Nitrogen 10 MG/DL (7-18); Calcium 9.1 MG/DL (8.5-10.1); Carbon Dioxide 30 MMOL/L (21-32); Chloride 109 MMOL/L (98-107); Glucose 66 MG/DL (74-106); Potassium 3.9 MMOL/L (3.5-5.1); Sodium 143 MMOL/L (136-145)
[2022-09-28] MEDS ORDERED: fentaNYL 100 MCG/2 ML VIAL IV STA (19:18)
[2022-09-28] MEDS ORDERED: SODIUM CHLORIDE 0.9% 1,000 ML IV STA ×2 (19:18→20:21)
[2022-09-28 20:36] LABS: Mucus,Urine Many /LPF (Occasional); RBC,Urine 460 /HPF (0-4)
[2022-09-28 20:37] LABS: Bilirubin,Urine Negative (Negative); Blood, Urine Large mg/dL (Negative); Glucose,Urine (UA) Negative (Negative); Ketones,Urine Negative (Negative); Nitrite,Urine Positive (Negative); Protein,Urine 100 mg/dL (Negative); Urine Appearance Cloudy (Clear); Urine Color Yellow (Yellow); Urine Urobilinogen 0.2 eU/dL (<2.0); Urine pH 6.5 (4.5-8.0)
[2022-09-28] MEDS ORDERED: PIPERACILLIN/TAZOBACTAM 3,375 MG in SODIUM CHLORIDE 0.9% 100 ML IV STA (21:22)
[2022-09-28] MEDS ORDERED: ONDANSETRON 4 MG/2 ML VIAL IV PRN (22:18)
[2022-09-28] MEDS ORDERED: NICOTINE 21 MG/24 HR PATCH TRANSDERM PRN (22:18)
[2022-09-28] MEDS ORDERED: ACETAMINOPHEN 325 MG TABLET PO PRN (22:18)
[2022-09-28] MEDS ORDERED: ALBUTEROL/IPRATROPIUM 3 ML NEB RESP TX PRN (22:18)
[2022-09-28] MEDS ORDERED: DOCUSATE SODIUM 100 MG CAPSULE PO PRN (22:18)
[2022-09-28] MEDS ORDERED: ZALEPLON 5 MG CAPSULE PO PRN (22:18)
[2022-09-28] MEDS ORDERED: guaiFENesin/DM ER 600-30 MG TABLET PO PRN (22:18)
[2022-09-28] MEDS ORDERED: hydrALAZINE 20 MG/1 ML VIAL IV PRN (22:18)
[2022-09-28] MEDS ORDERED: DEXTROSE 5% NACL 0.45% 1,000 ML IV SCH (22:45)
[2022-09-29] MEDS ORDERED: SODIUM CHLORIDE 0.9% 1,000 ML IV ONE ×2 (02:30→07:56)
[2022-09-29] MEDS: PIPERACILLIN/TAZOBACTAM 3,375 MG in SODIUM CHLORIDE 0.9% 100 ML IV SCH ×3 (05:11→20:45)
[2022-09-29 05:21] LABS: Calcium 7.4 MG/DL (8.5-10.1); Osmolality,Calculated 276.4 MOS/KG (273-304); Potassium 3.2 MMOL/L (3.5-5.1)
[2022-09-29] MEDS ORDERED: ALPRAZolam 0.25 MG TABLET PO PRN (06:01)
[2022-09-29] MEDS ORDERED: tiZANidine 4 MG TABLET PO PRN (06:01)
[2022-09-29 06:33] LABS: Basophils % 0.4 % (0.0-0.8); Eosinophils # 0.1 10*3/uL (0.0-0.87); Eosinophils % 0.9 % (0.00-10.9); Hematocrit 28.4 VOL% (42.0-52.0); Hemoglobin 8.9 GM/DL (14.0-18.0); Immature Granulocytes % 0.4 %; Immature Granulocytes Absolute 0.04 #; Lymphocytes # 2.3 10*3/uL (1.4-4.0); Lymphocytes % 23.5 % (21.2-54.2); Mean Corpuscular HGB Conc 31.3 GM/DL (32-36); Mean Corpuscular Volume 83.8 FL (87-102); Monocytes # 0.8 10*3/uL (0.11-0.8); Monocytes % 8.1 % (1.7-12.7); Neutrophils % 66.7 % (38.7-73.9); Platelet Count 288 T/CUMM (130-400); Red Blood Count 3.39 MC/CUMM (3.8-5.5); Red Cell Distribution Width 17.3 % (9.3-17.3); White Blood Count 9.93 T/CUMM (4-12)
[2022-09-29] MEDS ORDERED: POTASSIUM CHLORIDE 20 MEQ TABLET PO PRN (08:01)
[2022-09-29] MEDS ORDERED: LACTATED RINGERS 1,000 ML IV ONE (08:31)
[2022-09-29] MEDS ORDERED: PREGABALIN 100 MG CAPSULE PO SCH (09:00)
[2022-09-29] MEDS ORDERED: HEPARIN 5,000 UNIT/1 ML VIAL SUBCUT SCH (09:00)
[2022-09-29] MEDS: LACTATED RINGERS 1,000 ML IV SCH ×2 (09:32→18:17)
[2022-09-29] MEDS: CHOLECALCIFEROL 5,000 UNIT TABLET PO SCH ×2 (09:35→20:45)
[2022-09-29] MEDS: PANTOPRAZOLE 40 MG TABLET PO SCH (09:35)
[2022-09-29] MEDS: MULTIVITAMIN (CENTRUM) TABLET PO SCH (09:35)
[2022-09-29] MEDS: LINEZOLID 600 MG TABLET PO SCH ×2 (09:35→20:45)
[2022-09-29] MEDS: ENOXAPARIN 40 MG/0.4 ML SYRINGE SUBCUT SCH (20:45)
[2022-09-29] MEDS ORDERED: traZODone 50 MG TABLET PO PRN (21:00)
[2022-09-30] MEDS: diphenhydrAMINE CAP 25 MG CAPSULE PO PRN ×2 (00:34→21:29)
[2022-09-30] MEDS: LACTATED RINGERS 1,000 ML IV SCH ×3 (01:45→17:46)
[2022-09-30] MEDS: PIPERACILLIN/TAZOBACTAM 3,375 MG in SODIUM CHLORIDE 0.9% 100 ML IV SCH ×3 (04:45→20:02)
[2022-09-30 05:50] LABS: Basophils % 0.5 % (0.0-0.8); Eosinophils # 0.2 10*3/uL (0.0-0.87); Eosinophils % 2.4 % (0.00-10.9); Hematocrit 31.2 VOL% (42.0-52.0); Hemoglobin 10.4 GM/DL (14.0-18.0); Immature Granulocytes % 0.3 %; Immature Granulocytes Absolute 0.02 #; Lymphocytes # 2.9 10*3/uL (1.4-4.0); Lymphocytes % 38.3 % (21.2-54.2); Mean Corpuscular HGB Conc 33.3 GM/DL (32-36); Mean Corpuscular Volume 81.9 FL (87-102); Monocytes # 0.6 10*3/uL (0.11-0.8); Monocytes % 8.4 % (1.7-12.7); Neutrophils % 50.1 % (38.7-73.9); Platelet Count 316 T/CUMM (130-400); Red Blood Count 3.81 MC/CUMM (3.8-5.5); Red Cell Distribution Width 17.4 % (9.3-17.3); White Blood Count 7.54 T/CUMM (4-12)
[2022-09-30 06:08] LABS: Calcium 8.4 MG/DL (8.5-10.1); Potassium 3.2 MMOL/L (3.5-5.1)
[2022-09-30] MEDS ORDERED: POTASSIUM CHLORIDE 20 MEQ TABLET PO ONE (09:00)
[2022-09-30] MEDS: MULTIVITAMIN (CENTRUM) TABLET PO SCH (10:03)
[2022-09-30] MEDS: LINEZOLID 600 MG TABLET PO SCH ×2 (10:04→20:03)
[2022-09-30] MEDS: CHOLECALCIFEROL 5,000 UNIT TABLET PO SCH ×2 (10:05→20:03)
[2022-09-30] MEDS: PANTOPRAZOLE 40 MG TABLET PO SCH (10:05)
[2022-09-30] MEDS: ENOXAPARIN 40 MG/0.4 ML SYRINGE SUBCUT SCH (20:03)
[2022-10-01] MEDS: LACTATED RINGERS 1,000 ML IV SCH ×3 (00:28→16:58)
[2022-10-01] MEDS: PIPERACILLIN/TAZOBACTAM 3,375 MG in SODIUM CHLORIDE 0.9% 100 ML IV SCH (04:30)
[2022-10-01 05:49] LABS: Basophils % 0.4 % (0.0-0.8); Eosinophils # 0.2 10*3/uL (0.0-0.87); Eosinophils % 2.4 % (0.00-10.9); Hematocrit 34.7 VOL% (42.0-52.0); Hemoglobin 11.5 GM/DL (14.0-18.0); Immature Granulocytes % 0.1 %; Immature Granulocytes Absolute 0.01 #; Lymphocytes # 2.4 10*3/uL (1.4-4.0); Lymphocytes % 32.9 % (21.2-54.2); Mean Corpuscular HGB Conc 33.1 GM/DL (32-36); Mean Corpuscular Volume 82.2 FL (87-102); Mean Platelet Volume 10.9 FL (9.6-12.0); Monocytes # 0.8 10*3/uL (0.11-0.8); Monocytes % 10.2 % (1.7-12.7); Platelet Count 343 T/CUMM (130-400); Red Blood Count 4.22 MC/CUMM (3.8-5.5); Red Cell Distribution Width 17.5 % (9.3-17.3); White Blood Count 7.38 T/CUMM (4-12)
[2022-10-01 06:16] LABS: Calcium 8.7 MG/DL (8.5-10.1); Osmolality,Calculated 275.5 MOS/KG (273-304); Potassium 3.9 MMOL/L (3.5-5.1)
[2022-10-01] MEDS: CHOLECALCIFEROL 5,000 UNIT TABLET PO SCH ×2 (09:38→20:06)
[2022-10-01] MEDS: PANTOPRAZOLE 40 MG TABLET PO SCH (09:38)
[2022-10-01] MEDS: LINEZOLID 600 MG TABLET PO SCH (09:38)
[2022-10-01] MEDS: MULTIVITAMIN (CENTRUM) TABLET PO SCH (09:39)
[2022-10-01] MEDS: ENOXAPARIN 40 MG/0.4 ML SYRINGE SUBCUT SCH (20:06)
[2022-10-02] MEDS: LACTATED RINGERS 1,000 ML IV SCH ×2 (00:13→09:52)
[2022-10-02 04:56] LABS: Basophils % 0.4 % (0.0-0.8); Eosinophils # 0.2 10*3/uL (0.0-0.87); Eosinophils % 2.2 % (0.00-10.9); Hematocrit 35.3 VOL% (42.0-52.0); Hemoglobin 11.4 GM/DL (14.0-18.0); Immature Granulocytes % 0.1 %; Immature Granulocytes Absolute 0.01 #; Lymphocytes # 2.6 10*3/uL (1.4-4.0); Lymphocytes % 32.7 % (21.2-54.2); Mean Corpuscular HGB Conc 32.3 GM/DL (32-36); Mean Corpuscular Volume 82.3 FL (87-102); Mean Platelet Volume 10.9 FL (9.6-12.0); Monocytes # 0.8 10*3/uL (0.11-0.8); Monocytes % 9.7 % (1.7-12.7); Neutrophils % 54.9 % (38.7-73.9); Platelet Count 350 T/CUMM (130-400); Red Blood Count 4.29 MC/CUMM (3.8-5.5); Red Cell Distribution Width 17.7 % (9.3-17.3); White Blood Count 7.82 T/CUMM (4-12)
[2022-10-02 05:25] LABS: Osmolality,Calculated 276.5 MOS/KG (273-304)
[2022-10-02] MEDS: PANTOPRAZOLE 40 MG TABLET PO SCH (09:52)
[2022-10-02] MEDS: CHOLECALCIFEROL 5,000 UNIT TABLET PO SCH (09:52)
[2022-10-02] MEDS: MULTIVITAMIN (CENTRUM) TABLET PO SCH (09:52)
[2022-10-02 12:05] VITALS: BP 138/78
== END 2022-10-02 12:30 | disposition home or self-care (01) | DRG 466 ==
LOC: N.ED 17:21 → SUATTDRO 22:18 → N.2E 22:18
PROVIDERS: ADMIT Internal Medicine; ATTEND Internal Medicine